=== PATIENT | female | born 1945 | race Caucasian/White ===

== ENCOUNTER 2019-06-19 09:04 | Outpatient (REF) | payer MEDICARE, OTHER, SELFPAY ==
[2019-06-19 21:32] LABS: Anion Gap 7.5 mmol/L (3-11); BUN 17 mg/dL (7-18); CO2 31.5 mmol/L (21.0-32.0); CREATININE 0.79 mg/dL (0.55-1.02); Calcium 9.2 mg/dL (8.5-10.1); Calculated LDL 133 mg/dL; Chloride 104 mmol/L (98-107); Cholesterol 227 mg/dL (50-200); Glucose 101 mg/dL (70-100); HDL Cholesterol 50 mg/dL (40-60); Potassium 3.9 mmol/L (3.5-5.1); Sodium 143 mmol/L (136-145); Triglyceride 224 mg/dL (30-150)
== END 2019-06-19 09:24 ==
LOC: NCHCN 09:04
PROVIDERS: PCP Family Medicine; Visit Provider Family Medicine
DX: I10 Essential (primary) hypertension (principal)
CPT/HCPCS: 80048; 80061

== ENCOUNTER 2019-09-23 15:16 | Outpatient (REF) | payer MEDICARE, OTHER, SELFPAY ==
[2019-09-23 21:44] LABS: Absolute Basophil Count 0.02 k/cumm (0.0-0.2); Absolute Eosinophil Count 0.11 k/cumm (0.0-0.7); Absolute Lymphocyte Count 1.87 k/cumm (1.2-3.4); Absolute Monocyte Count 0.53 k/cumm (0.11-0.7); Absolute Neutrophil Count 3.71 k/cumm (1.2-6.7); Basophils % 0.3; Eosinophils % 1.8; HCT 39.4 % (36.0-46.0); HGB 12.7 g/dL (12.0-15.5); Mean Corp. HGB Concentration 32.2 g/dL (32.0-36.0); Mean Corpuscular Hemoglobin 30.5 pg (27.0-33.0); Mean Corpuscular Volume 94.5 fL (80-95); Mean Platelet Volume 10.5 fL (8.0-11.0); Monocytes % 8.5; Neutrophils % 59.4; Platelet Count 329 x1000/uL (130-400); RBC 4.17 m/cumm (4.00-5.20); RBC Distribution Width 12.5 % (11.7-14.6); White Blood Cell Count 6.24 k/cumm (4.4-10.8)
[2019-09-23 22:28] LABS: ALT 26 U/L (14-59); AST 16 U/L (15-37); Alkaline Phosphatase 54 U/L (46-116); Anion Gap 5.9 mmol/L (3-11); BUN 17 mg/dL (7-18); Bilirubin, Total 0.3 mg/dL (0.2-1.0); CO2 32.1 mmol/L (21.0-32.0); CREATININE 0.98 mg/dL (0.55-1.02); Calcium 9.1 mg/dL (8.5-10.1); Chloride 105 mmol/L (98-107); Estimated GFR 55.79 (mL/min/1.73m2); Glucose 98 mg/dL (74-106); Potassium 4.6 mmol/L (3.5-5.1); Sodium 143 mmol/L (136-145); Vitamin B12 282 pg/mL (193-986)
[2019-09-23 22:41] LABS: Lipase 129 U/L (73-393)
== END 2019-09-23 15:36 ==
LOC: NCHCN 15:16
PROVIDERS: PCP Family Medicine; Visit Provider Family Medicine
DX: R10.11 Right upper quadrant pain (principal); R11.0 Nausea; G62.9 Polyneuropathy, unspecified
CPT/HCPCS: 80053; 83690; 82607; 85025

== ENCOUNTER 2020-06-15 09:17 | Outpatient (REF) | payer MEDICARE, OTHER, SELFPAY ==
[2020-06-15 22:55] LABS: HCT 39.5 % (36.0-46.0); HGB 12.7 g/dL (11.2-15.7); MCH 30.8 pg (27.0-33.0); MCHC 32.2 % (32.0-36.0); MCV 95.6 fL (80-95); MPV 10.2 fL (8.0-11.0); Platelet Count 330 10^3/uL (130-400); RBC 4.13 10^6/uL (3.93-5.22); RDW 12.1 % (11.7-14.6); RDW-SD 42.1 fL; WBC 6.47 10^3/uL (4.4-10.8)
[2020-06-15 23:30] LABS: BUN 18 mg/dL (7-18); CREATININE 0.78 mg/dL (0.55-1.02); Calcium 9.3 mg/dL (8.5-10.1); Chloride 104 mmol/L (98-107); Glucose 95 mg/dL (74-106); Potassium 4.1 mmol/L (3.5-5.1); Sodium 143 mmol/L (136-145); TSH (W/Ref FT4) 1.45 uIU/mL (0.36-3.74); Vitamin B12 1765 pg/mL (193-986)
[2020-06-17 18:09] LABS: Folate 16.9 ng/mL (See Note)
== END 2020-06-15 09:37 ==
LOC: NCHCN 09:17
PROVIDERS: PCP Family Medicine; Visit Provider Family Medicine
DX: E53.8 Deficiency of other specified B group vitamins (principal); I10 Essential (primary) hypertension
CPT/HCPCS: 80048; 85027; 82607; 82746; 84443

== ENCOUNTER 2020-09-20 11:51 | Outpatient (REF) | payer MEDICARE, OTHER, SELFPAY | END 2020-09-20 12:11 | LOC: NCHCN 11:51 | PROVIDERS: PCP Family Medicine; Visit Provider Nurse Practitioner Family | DX: R10.9 Unspecified abdominal pain (principal) | CPT/HCPCS: 87086 ==

== ENCOUNTER 2020-11-04 19:12 | Outpatient (REF) | payer MEDICARE, OTHER, SELFPAY ==
[2020-11-04 13:41] LABS: Total Protein 7.4 g/dL (6.4-8.2)
== END 2020-11-04 19:13 | disposition home or self-care (01) ==
LOC: NCHCN 19:12
PROVIDERS: PCP Family Medicine; Visit Provider Family Medicine
DX: E88.09 Other disorders of plasma-protein metabolism, not elsewhere classified (principal)
CPT/HCPCS: 84155

== ENCOUNTER 2021-06-22 14:55 | Outpatient (REF) | payer MEDICARE, OTHER, SELFPAY ==
[2021-06-22 22:31] LABS: Abs Immature Grans 0.01 10^3/uL (0.0-0.06); Absolute Basophil Count 0.05 10^3/uL (0.0-0.2); Absolute Eosinophil Count 0.03 10^3/uL (0.0-0.7); Absolute Lymphocyte Count 1.45 10^3/uL (1.2-3.4); Absolute Monocyte Count 0.43 10^3/uL (0.1-0.8); Absolute Neutrophil Count 3.94 10^3/uL (1.2-6.7); Basophils % 0.8; Eosinophils % 0.5; HCT 40.7 % (36.0-46.0); HGB 13.1 g/dL (11.2-15.7); Immature Grans % 0.2; Lymphocytes % 24.5; MCH 30.2 pg (27.0-33.0); MCHC 32.2 % (32.0-36.0); MCV 93.8 fL (80-95); MPV 10.6 fL (8.0-11.0); Monocytes % 7.3; Neutrophils % 66.7; Nucleated RBC 0 %; Platelet Count 307 10^3/uL (130-400); RBC 4.34 10^6/uL (3.93-5.22); RDW 12.4 % (11.7-14.6); RDW-SD 42.9 fL; WBC 5.91 10^3/uL (4.4-10.8)
[2021-06-22 22:50] LABS: ALT 21 U/L (14-59); AST 15 U/L (15-37); Albumin 4.3 g/dL (3.4-5.0); Alkaline Phosphatase 51 U/L (46-116); Anion Gap 7.9 mmol/L (3-11); BUN 13 mg/dL (7-18); Bilirubin, Total 0.3 mg/dL (0.2-1.0); CO2 29.1 mmol/L (21.0-32.0); CREATININE 0.8 mg/dL (0.55-1.02); Calcium 9.2 mg/dL (8.5-10.1); Chloride 108 mmol/L (98-107); Glucose 91 mg/dL (74-106); Lipase 123 U/L (73-393); Potassium 4.5 mmol/L (3.5-5.1); Sodium 145 mmol/L (136-145); Total Protein 7.4 g/dL (6.4-8.2)
== END 2021-06-22 14:56 | disposition home or self-care (01) ==
LOC: NCHCN 14:55
PROVIDERS: PCP Family Medicine; Visit Provider Family Medicine
DX: R19.7 Diarrhea, unspecified (principal); R10.32 Left lower quadrant pain; R10.11 Right upper quadrant pain
CPT/HCPCS: 80053; 83690; 85025

== ENCOUNTER 2024-06-18 16:26 | Outpatient (REF) | payer MEDICARE, SELFPAY ==
--- OUTSIDE RECORDS SUMMARY | 2024-06-18 16:32 | XMS_ITS ---
Author Organization Unknown Address [address] [place] [address] [phone] Phone Care Team Providers Care Mechanical Manufacturing Engineer Name Role Phone NAZ WOODRUFF Attending Unavailable TANK Nance Primary Unavailable Results MM SCREENING BILAT MAMMO W T ZACK W CAD - Completed: 06/15/2022 09:51 LOINC: [facility] [place], [place] [address] PACS RESEARCH NURSE REPORT Patient Name: JAMES FOOTE V MRN: Sex: : Age: [id number] F 1945 76 Account: Accession: Admit: StayType: [id number] 06/15/2022 O/P Ordered: Order ID: Submitted: Ordering Provider: 06/15/2022 09:17 [id number] RANJAN GARCIA Completed: Technologist: Resulted: 06/15/2022 09:51 BMM 06/15/2022 13:59 Study Description: MM SCREENING BILAT MAMMO W ABHI W CAD Study Reason: SCREENING TECHNIQUE: 2D digital images with tomosynthesis and CAD COMPARISON: 2017 through 2020 FINDINGS: The breasts are composed of scattered fibroglandular densities, Breast Density category B. No suspicious masses or suspicious microcalcifications are seen. There is scarring in the medial right breast related to prior lumpectomy. No abnormal axillary lymph nodes are seen. There has been no significant change from prior exams. IMPRESSION: BI-RADS Category 2, negative mammogram with benign findings. Yearly screening mammography is recommended. Breast Density - Category B, scattered fibroglandular densities. A negative radiographic report should not delay biopsy if a dominant or clinically suspicious mass is present. Up to ten percent of cancers are not identified on mammography. A negative report may reinforce clinical impression. Adenosis and dense breasts may obscure an underlying neoplasm. False positive reports average 6 to 10%. Patient will receive a letter notifying them of these results. Report Digitally Signed by Radha Miller on 06/15/2022 01:59 PM EDT Social History Type Status Start Date End Date Code Code Syst em Smoking History Never smoker (Never Smoked) [id number] SNOMED CT Sex Female Medications Medication Start Date End Date Route Frequency Dose Code Code System Medication Instructions Home Meds CHEMO PILL 08/05/2018 Unknown ORAL DAILY 1 RxNorm T MARLI 1 ORAL DAILY HYDROmorphone HCl 2MG Oral Tablet 08/05/2018 Unknown ORAL NEEDED THREE TIMES A DAY 2 MILLIGRAMS 735696 RxNorm TAKE 2 MILLIGRAMS ORAL NEEDED THREE TIMES A DAY Magnesium 500 MG Oral Tablet 08/05/2018 Unknown ORAL TWICE A DAY 500 MG 895287 RxNorm TAKE 500 MG ORAL TWICE A DAY Metoprolol Succinate 25MG Oral Tablet, Extended Release 08/05/2018 Unknown ORAL DAILY 25 MILLIGRAMS 971390 RxNorm TAKE 25 MILLIGRAMS ORAL DAILY Omeprazole 20MG Oral Tablet, Delayed Release 08/05/2018 Unknown ORAL DAILY 20 MG RxNorm TAKE 20 MG ORAL DAILY amLODIPine Besylate 5MG Oral Tablet 08/05/2018 Unknown ORAL DAILY 5 MILLIGRAMS 610496 RxNorm TAKE 5 MILLIGRAMS ORAL DAILY traMADol HCl 50MG Oral Tablet 08/05/2018 Unknown ORAL NEEDED DAILY 50 MILLIGRAMS 470866 RxNorm TAKE 50 MILLIGRAMS ORAL NEEDED DAILY Hospital Discharge Instructions Should you have any questions prior to discharge, please contact a member of your healthcare team. If you have left the hospital and have any questions, please contact your primary care physician. Reason For Referral No Data Found Allergies and Adverse Reactions Allergy Substance Reaction Severity Start Date Concern Status Co de Code System ERYTHROMYCIN Itching (SNOMED-CT: 993478276) Moderate Active 4053 RxNorm PERCOCET Nausea/Vomiting (SNOMED-CT: 00412219) Severe Active 77273 RxNorm Plan of Treatment Exposure 11/18/2020 MM SCREEN BILAT 09/05/2023 US ABDOMEN LIMITED 1 ORGAN 07/04/2022 MM SCREEN BILAT 06/15/2022 CT ABDOMEN/PELVIS W/ CONTRAST Encounters Encounter Diagnosis Start Date Code Code Sys tem Screening mammography 06/15/2022 58704231 [facility] Media[facility] -CT Personal Care Team Section Performer Name Performer Role Active Date Inactive Da te
--- OUTSIDE RECORDS SUMMARY | 2024-06-18 16:32 | XMS_ITS ---
Author Organization Unknown Address [address] [place] [address] [phone] Phone Care Team Providers Care Quality Assurance Technician Name Role Phone TIMUR Caballero Attending Unavailable TANK Nance Primary Unavailable Social History Type Status Start Date End Date Code Code Syst em Smoking History Never smoker (Never Smoked) 608316403 SNOMED CT Sex Female Medications Medication Start Date End Date Route Frequency Dose Code Code System Medication Instructions Home Meds CHEMO PILL 08/05/2018 Unknown ORAL DAILY 1 RxNorm T MARLI 1 ORAL DAILY HYDROmorphone HCl 2MG Oral Tablet 08/05/2018 Unknown ORAL NEEDED THREE TIMES A DAY 2 MILLIGRAMS 079973 RxNorm TAKE 2 MILLIGRAMS ORAL NEEDED THREE TIMES A DAY Magnesium 500 MG Oral Tablet 08/05/2018 Unknown ORAL TWICE A DAY 500 MG 135186 RxNorm TAKE 500 MG ORAL TWICE A DAY Metoprolol Succinate 25MG Oral Tablet, Extended Release 08/05/2018 Unknown ORAL DAILY 25 MILLIGRAMS 462894 RxNorm TAKE 25 MILLIGRAMS ORAL DAILY Omeprazole 20MG Oral Tablet, Delayed Release 08/05/2018 Unknown ORAL DAILY 20 MG RxNorm TAKE 20 MG ORAL DAILY amLODIPine Besylate 5MG Oral Tablet 08/05/2018 Unknown ORAL DAILY 5 MILLIGRAMS 489449 RxNorm TAKE 5 MILLIGRAMS ORAL DAILY traMADol HCl 50MG Oral Tablet 08/05/2018 Unknown ORAL NEEDED DAILY 50 MILLIGRAMS 727714 RxNorm TAKE 50 MILLIGRAMS ORAL NEEDED DAILY [...] Co de Code System ERYTHROMYCIN Itching (SNOMED-CT: 845730882) Moderate Active 4053 RxNorm PERCOCET Nausea/Vomiting (SNOMED-CT: 66651910) Severe Active 91025 RxNorm Plan of Treatment Exposure 11/18/2020 MM SCREEN BILAT 09/05/2023 US ABDOMEN LIMITED 1 ORGAN 07/04/2022 MM SCREEN BILAT 06/15/2022 CT ABDOMEN/PELVIS W/ CONTRAST Encounters Encounter Diagnosis Start Date Code Code Sys tem Primary osteoarthritis, right shoulder 12/21/2021 SNOMED-CT Personal Care Team Section Performer Name Performer Role Active Date Inactive Da te
--- OUTSIDE RECORDS SUMMARY | 2024-06-18 16:32 | XMS_ITS ---
Author Organization Unknown Address [address] [place] [address] [phone] Phone Care Team Providers Care Pig Machine Operator Helper Name Role Phone TANK Nance Attending Unavailable Results CBC W/ DIFFERENTIAL* - Colle ct Date/Time: 07/10/2022 08:30 [facility] ID: [id number] [address] [place] [address], 6[address] LOINC: 17671-8 Test Value Unit Reference Range Code Code System Flag WBC 7.05 th/cmm L=5.00 H=10.00 6690-2 LOINC NEUT % 57.4 % L=40.0 H=80.0 LYMPH % 31.6 % L=10.0 H=50.0 MONO % 8.2 % L=2.0 H=12.0 26850-8 LOINC EOS % 1.8 % L=0.0 H=8.0 BASO % 0.7 % L=0.0 H=3.0 IG % 0.3 % L=0.0 H=1.1 2514-8 LOINC NRBC % 0.0 % L=0.0 H=0.0 40970-8 LOINC NEUT abs count 4.0 th/cmm L=1.6 H=8.4 751-8 LOINC LYMPH abs count 2.2 th/cmm L=1.5 H=4.0 731-0 LOINC MONO abs count 0.6 th/cmm L=0.2 H=1.0 742-7 LOINC EOS abs count 0.1 th/cmm L=0.0 H=0.5 711-2 LOINC BASO abs count 0.1 th/cmm L=0.0 H=0.2 704-7 LOINC IG abs count 0.0 th/cmm L=0.0 H=0.1 95979-6 LOINC NRBC abs count 0.0 mil/cmm L=0.0 H=0.0 89601-7 LOINC RBC 4.34 mil/cmm L=3.90 H=5.40 789-8 LOINC HEMOGLOBIN 13.3 gm/dL L=12.0 H=16.0 718-7 LOINC HEMATOCRIT 41 % L=37 H=47 4544-3 LOINC MCV 95 fL L=82 H=92 787-2 LOINC H MCH 30.6 pg L=27.0 H=31.0 785-6 LOINC MCHC 32.4 % L=32.0 H=36.0 786-4 LOINC RDW-SD 45.1 fL L=39.0 H=49.0 788-0 LOINC PLATELET COUNT 330 th/cmm L=150 H=450 777-3 LOINC LIPASE* NEW - Collect Date/T carrie: 07/10/2022 08:30 [facility] ID: [id number] [address] [place] [address], [phone] LOINC: 3040-3 Test Value Unit Reference Range Code Code System Flag LIPASE. 30 U/L L=16 H=77 COMPREHENSIVE METABOLIC PANE L (CMP) - Collect Date/Time: 07/10/2022 08:30 [facility] ID: [id number] [address] [place] [address], [address] LOINC: 31645-0 Test Value Unit Reference Range Code Code System Flag GLUCOSE 115 mg/dL L=70 H=116 2345-7 LOINC BUN 15 mg/dL L=6 H=25 3094-0 LOINC CREATININE 0.81 mg/dL L=0.51 H=0.95 2160-0 LOINC SODIUM SERUM 143 mmol/L L=136 H=145 2951-2 LOINC POTASSIUM SERUM 3.5 mmol/L L=3.4 H=5.2 2823-3 LOINC CHLORIDE SERUM 102 mmol/L L=96 H=110 2075-0 LOINC CARBON DIOXIDE (CO2) 33 mmol/L L=22 H=34 8-9 LOINC ANION GAP 8.5 mmol/L 75643-9 LOINC CALCIUM SERUM 8.6 mg/dL L=8.2 H=10.2 93741-5 LOINC BILIRUBIN TOTAL 0.3 mg/dL L=0.0 H=1.3 1975-2 LOINC ALK. PHOS. 52 U/L L=46 H=116 6768-6 LOINC SGOT (AST) 16 U/L L=15 H=37 1920-8 LOINC SGPT (ALT) 27 U/L L=12 H=78 1742-6 LOINC TOTAL PROTEIN 8.0 gm/dL L=6.0 H=8.0 2885-2 LOINC ALBUMIN 4.2 gm/dL L=3.4 H=5.0 1751-7 LOINC AGE 76 years eGFR (non-Afr.Amer.) 69 mL/min 20401-1 LOINC eGFR (Afr-Chadian) 83 mL/min 92062-9 [facility] Social History Type Status Start Date End Date Code Code Syst em Smoking History Never smoker (Never Smoked) 843916746 SNOMED CT Sex Female Medications Medication Start Date End Date Route Frequency Dose Code Code System Medication Instructions Home Meds CHEMO PILL 08/05/2018 Unknown ORAL DAILY 1 RxNorm T MARLI 1 ORAL DAILY HYDROmorphone HCl 2MG Oral Tablet 08/05/2018 Unknown ORAL NEEDED THREE TIMES A DAY 2 MILLIGRAMS 916242 RxNorm TAKE 2 MILLIGRAMS ORAL NEEDED THREE TIMES A DAY Magnesium 500 MG Oral Tablet 08/05/2018 Unknown ORAL TWICE A DAY 500 MG 660291 RxNorm TAKE 500 MG ORAL TWICE A DAY Metoprolol Succinate 25MG Oral Tablet, Extended Release 08/05/2018 Unknown ORAL DAILY 25 MILLIGRAMS 746532 RxNorm TAKE 25 MILLIGRAMS ORAL DAILY Omeprazole 20MG Oral Tablet, Delayed Release 08/05/2018 Unknown ORAL DAILY 20 MG RxNorm TAKE 20 MG ORAL DAILY amLODIPine Besylate 5MG Oral Tablet 08/05/2018 Unknown ORAL DAILY 5 MILLIGRAMS 624813 RxNorm TAKE 5 MILLIGRAMS ORAL DAILY traMADol HCl 50MG Oral Tablet 08/05/2018 Unknown ORAL NEEDED DAILY 50 MILLIGRAMS 486912 RxNorm TAKE 50 MILLIGRAMS ORAL NEEDED DAILY [...] Co de Code System ERYTHROMYCIN Itching (SNOMED-CT: 589801485) Moderate Active 4053 RxNorm PERCOCET Nausea/Vomiting (SNOMED-CT: 07385785) Severe Active 28434 RxNorm Plan of Treatment Exposure 11/18/2020 MM SCREEN BILAT 09/05/2023 US ABDOMEN LIMITED 1 ORGAN 07/04/2022 MM SCREEN BILAT 06/15/2022 CT ABDOMEN/PELVIS W/ CONTRAST 1 Encounters Encounter Diagnosis Start Date Code Code Sys tem Right upper quadrant pain 07/10/2022 921182134 SN OMED-CT Personal Care Team Section Performer Name Performer Role Active Date Inactive Da verenice
--- OUTSIDE RECORDS SUMMARY | 2024-06-18 16:32 | XMS_ITS ---
Author Organization Unknown Address [address] [place] [address] [phone] Phone Care Team Providers Care Auger Machine Offbearer Name Role Phone TANK Nance Attending Unavailable Results US ABD LIMITED ONE ORGAN - C ompleted: 07/04/2022 13:09 LOINC: [facility] [place], [place] [address] PACS DOUPER REPORT Patient Name: JAMES FOOTE V MRN: Sex: : Age: [id number] F 1945 76 Account: Accession: Admit: StayType: [id number] 07/04/2022 O/P Ordered: Order ID: Submitted: Ordering Provider: 07/04/2022 12:35 [id number] TIMOTHY WAGNER Completed: Technologist: Resulted: 07/04/2022 13:09 GVS 07/04/2022 13:34 Study Description: US ABD LIMITED ONE ORGAN Study Reason: RUQ PAIN TECHNIQUE: Ultrasound abdomen performed using standard protocol. COMPARISON: Prior CT scan 06/30/2021 was reviewed FINDINGS: There is no ascites evident. LIVER: Somewhat hyperechoic indicating an element of steatosis. There are no the focal hepatic lesions identified. GALLBLADDER/BILIARY: There are no gallstones. No gallbladder wall edema nor pericholecystic fluid. The common hepatic duct isnot dilated, measuring 3mm at the level of malia hepatis. PANCREAS: There is no evidence of pancreatic mass nor dilatation of the pancreatic duct. RIGHT KIDNEY:No evidence of solid mass, calculus, nor hydronephrosis. No cortical cysts evident. ABDOMINAL AORTA AND IVC: Visualized portions exhibit normal caliber. IMPRESSION: 1. No evidence of cholelithiasis nor dilatation of the biliary tree. 2. Hepatic steatosis. Correlation with appropriate hepatic blood work recommended 3. No others significant right upper quadrant ultrasound findings. Report Digitally Signed by Anjel Mc on 07/04/2022 01:34 PM EDT Social History Type Status Start Date End Date Code Code Syst em Smoking History Never smoker (Never Smoked) 834481416 SNOMED CT Sex Female Medications Medication Start Date End Date Route Frequency Dose Code Code System Medication Instructions Home Meds CHEMO PILL 08/05/2018 Unknown ORAL DAILY 1 RxNorm T MARLI 1 ORAL DAILY HYDROmorphone HCl 2MG Oral Tablet 08/05/2018 Unknown ORAL NEEDED THREE TIMES A DAY 2 MILLIGRAMS 749171 RxNorm TAKE 2 MILLIGRAMS ORAL NEEDED THREE TIMES A DAY Magnesium 500 MG Oral Tablet 08/05/2018 Unknown ORAL TWICE A DAY 500 MG 920779 RxNorm TAKE 500 MG ORAL TWICE A DAY Metoprolol Succinate 25MG Oral Tablet, Extended Release 08/05/2018 Unknown ORAL DAILY 25 MILLIGRAMS 627978 RxNorm TAKE 25 MILLIGRAMS ORAL DAILY Omeprazole 20MG Oral Tablet, Delayed Release 08/05/2018 Unknown ORAL DAILY 20 MG RxNorm TAKE 20 MG ORAL DAILY amLODIPine Besylate 5MG Oral Tablet 08/05/2018 Unknown ORAL DAILY 5 MILLIGRAMS 028117 RxNorm TAKE 5 MILLIGRAMS ORAL DAILY traMADol HCl 50MG Oral Tablet 08/05/2018 Unknown ORAL NEEDED DAILY 50 MILLIGRAMS 768041 RxNorm TAKE 50 MILLIGRAMS ORAL NEEDED DAILY [...] Co de Code System ERYTHROMYCIN Itching (SNOMED-CT: 707782690) Moderate Active 4053 RxNorm PERCOCET Nausea/Vomiting (SNOMED-CT: 96282172) Severe Active 38114 RxNorm Plan of Treatment Exposure 11/18/2020 MM SCREEN BILAT 09/05/2023 US ABDOMEN LIMITED 1 ORGAN 07/04/2022 MM SCREEN BILAT 06/15/2022 CT ABDOMEN/PELVIS W/ CONTRAST Encounters Encounter Diagnosis Start Date Code Code Sys tem Right upper quadrant pain 07/04/2022 SN OMED-CT Personal Care Team Section Performer Name Performer Role Active Date Inactive Da te
--- OUTSIDE RECORDS SUMMARY | 2024-06-18 16:33 | XMS_ITS ---
Author Organization Unknown Address [address] [place] [address] [phone] Phone Care Team Providers Care Dock Coordinator Name Role Phone HAKAN Crar Attending Unavailable TANK Nance Primary Unavailable Results XR SHOULDER 2V OR MORE RT* - Completed: 02/04/2024 08:59 LOINC: [facility] [place], [place] [address] [facility] REPORT Patient Name: JAMES FOOTE V MRN: Sex: : Age: [id number] F 1945 78 Account: Accession: Admit: StayType: [id number] 02/04/2024 O Ordered: Order ID: Submitted: Ordering Provider: 02/04/2024 07:58 [id number] RICK LAMA Completed: Technologist: Resulted: 02/04/2024 08:10 RAD 02/04/2024 08:34 FINAL REPORT EXAM: XR SHOULDER 2V OR MORE RT* CLINICAL HISTORY: REASON: RIGHT SHOULDER PAIN, UNSPECIFIED CHRONICITY. TECHNIQUE: 2D digital imaging was performed of the right shoulder. Three images were obtained. Three views were obtained. COMPARISON: No exams were available for comparison FINDINGS: BONES: No acute fracture is present. No bony destructive lesion is seen. JOINTS: No dislocation present. There are degenerative changes seen at the acromioclavicular joint. The glenohumeral joint is well-maintained. SOFT TISSUE: Normal. IMPRESSION: Degenerative changes of the acromioclavicular joint. DATA REPOSITORY: RADIATION DOSE DELIVERED: Electronically signed by: Francisco Reyes Dictated: 02/04/2024 08:34 Social History Type Status Start Date End Date Code Code Syst em Smoking History Never smoker (Never Smoked) 198057106 SNOMED CT Sex Female Medications Medication Start Date End Date Route Frequency Dose Code Code System Medication Instructions Home Meds CHEMO PILL 08/05/2018 Unknown ORAL DAILY 1 RxNorm T MARLI 1 ORAL DAILY HYDROmorphone HCl 2MG Oral Tablet 08/05/2018 Unknown ORAL NEEDED THREE TIMES A DAY 2 MILLIGRAMS 237237 RxNorm TAKE 2 MILLIGRAMS ORAL NEEDED THREE TIMES A DAY Magnesium 500 MG Oral Tablet 08/05/2018 Unknown ORAL TWICE A DAY 500 MG 337766 RxNorm TAKE 500 MG ORAL TWICE A DAY Metoprolol Succinate 25MG Oral Tablet, Extended Release 08/05/2018 Unknown ORAL DAILY 25 MILLIGRAMS 552619 RxNorm TAKE 25 MILLIGRAMS ORAL DAILY Omeprazole 20MG Oral Tablet, Delayed Release 08/05/2018 Unknown ORAL DAILY 20 MG RxNorm TAKE 20 MG ORAL DAILY amLODIPine Besylate 5MG Oral Tablet 08/05/2018 Unknown ORAL DAILY 5 MILLIGRAMS 839959 RxNorm TAKE 5 MILLIGRAMS ORAL DAILY traMADol HCl 50MG Oral Tablet 08/05/2018 Unknown ORAL NEEDED DAILY 50 MILLIGRAMS 378335 RxNorm TAKE 50 MILLIGRAMS ORAL NEEDED DAILY [...] Co de Code System ERYTHROMYCIN Itching (SNOMED-CT: 313072171) Moderate Active 4053 RxNorm PERCOCET Nausea/Vomiting (SNOMED-CT: 80963318) Severe Active 45653 RxNorm Plan of Treatment Exposure 11/18/2020 MM SCREEN BILAT 09/05/2023 US ABDOMEN LIMITED 1 ORGAN 07/04/2022 MM SCREEN BILAT 06/15/2022 CT ABDOMEN/PELVIS W/ CONTRAST Encounters Encounter Diagnosis Start Date Code Code Sys tem 02/04/2024 [id number] SNOMED-CT Personal Care Team Section Performer Name Performer Role Active Date Inactive Da te
--- OUTSIDE RECORDS SUMMARY | 2024-06-18 16:33 | XMS_ITS ---
Author Organization Unknown Address [address] [place] [address] [phone] Phone Care Team Providers Care Real Estate Analyst Name Role Phone MALCOM VICK Registered Nurse Unavailable FLEX Reza Attending Unavailable MADELIN Cint[facility] Unavailable TANK Nance Primary Unavailable UNLISTED PROVIDER - REQUESTED Xhandoff Un available Results XR SHOULDER 2V OR MORE LT* - Completed: 09/02/2022 21:54 LOINC: [place], [place] [address] TECHNICIAN REPORT Patient Name: JAMES FOOTE V MRN: Sex: : Age: [id number] F 1945 76 Account: Accession: Admit: StayType: [id number] 09/02/2022 E/R Ordered: Order ID: Submitted: Ordering Provider: 09/02/2022 19:53 [id number] GHANSHYAM LOPEZ Completed: Technologist: Resulted: 09/02/2022 21:54 CLB 09/04/2022 08:19 Study Description: XR SHOULDER 2V OR MORE LT* Study Reason: Pain Views: 4 COMPARISON: FINDINGS: BONES: No acute fracture is present. No bony destructive lesion is seen. JOINTS: No dislocation present. There is spurring at the AC joint. SOFT TISSUE: Normal. IMPRESSION: No acute abnormality. Report Digitally Signed by Radha Miller on 09/04/2022 08:19 AM EST Social History Type Status Start Date End Date Code Code Syst em Smoking History Never smoker (Never Smoked) 818697201 SNOMED CT Sex Female Vital Signs Vital Sign Value Unit Lawson Value Lawson Unit Date/Time Recent/Initial? Code Code System Body Mass Index 24.94 kg/m2 09/02/2022 19:42 Initial 84246 -5 LOINC Systolic Blood Pressure 152 mm[Hg] 09/02/2022 19:35 Initial 8480- 6 LOINC Diastolic Blood Pressure 86 mm[Hg] 09/02/2022 19:35 Initial 8462- 4 LOINC Body Surface Area 1.61 m2 09/02/2022 19:42 Initial 3140- 1 LOINC Height 154.940 0 cm 61.00 in 09/02/2022 19:42 Initial 8302- 2 LOINC O2 Saturation 98 % 2022 19:35 Initial 34059 -5 LOINC Pulse 103.0 /min 09/02/2022 19:35 Initial 8867- 4 LOINC Respiration 18 /min 09/02/19 19:35 Initial 9279- 1 LOINC Temperature 37.4 Herlinda 99.3 F 09/02/19 23 19:35 Initial 8310- 5 LOINC Weight 59.87 kg 132.00 lbs 09/02/2022 19:42 Initial 22435 -7 LOINC Medications Medication Start Date End Date Route Frequency Dose Code Code System Medication Instructions Home Meds CHEMO PILL 08/05/2018 Unknown ORAL DAILY 1 RxNorm T MARLI 1 ORAL DAILY HYDROmorphone HCl 2MG Oral Tablet 08/05/2018 Unknown ORAL NEEDED THREE TIMES A DAY 2 MILLIGRAMS 872887 RxNorm TAKE 2 MILLIGRAMS ORAL NEEDED THREE TIMES A DAY Magnesium 500 MG Oral Tablet 08/05/2018 Unknown ORAL TWICE A DAY 500 MG 085710 RxNorm TAKE 500 MG ORAL TWICE A DAY Metoprolol Succinate 25MG Oral Tablet, Extended Release 08/05/2018 Unknown ORAL DAILY 25 MILLIGRAMS 350398 RxNorm TAKE 25 MILLIGRAMS ORAL DAILY Omeprazole 20MG Oral Tablet, Delayed Release 08/05/2018 Unknown ORAL DAILY 20 MG RxNorm TAKE 20 MG ORAL DAILY amLODIPine Besylate 5MG Oral Tablet 08/05/2018 Unknown ORAL DAILY 5 MILLIGRAMS 420115 RxNorm TAKE 5 MILLIGRAMS ORAL DAILY traMADol HCl 50MG Oral Tablet 08/05/2018 Unknown ORAL NEEDED DAILY 50 MILLIGRAMS 585675 RxNorm TAKE 50 MILLIGRAMS ORAL NEEDED DAILY [...] Co de Code System ERYTHROMYCIN Itching (SNOMED-CT: 757956920) Moderate Active 4053 RxNorm PERCOCET Nausea/Vomiting (SNOMED-CT: 43458925) Severe Active 93511 RxNorm Plan of Treatment Exposure 11/18/2020 MM SCREEN BILAT 09/05/2023 US ABDOMEN LIMITED 1 ORGAN 07/04/2022 MM SCREEN BILAT 06/15/2022 CT ABDOMEN/PELVIS W/ CONTRAST Encounters Encounter Diagnosis Start Date Code Code Sys tem Strain of muscle(s) and tend on(s) of the rotator cuff of left shoulder, initial encounter 09/02/2022 SNOMED- CT Personal Care Team Section Performer Name Performer Role Active Date Inactive Da te
--- OUTSIDE RECORDS SUMMARY | 2024-06-18 16:33 | XMS_ITS ---
Author Organization Unknown Address [address] [place] [address] [phone] Phone Care Team Providers Care System Specialist Name Role Phone HAKAN PATKELSEY Carr Attending Unavailable TANK Nance Primary Unavailable Social History Type Status Start Date End Date Code Code Syst em Smoking History Never smoker (Never Smoked) 516115581 SNOMED CT Sex Female Medications Medication Start Date End Date Route Frequency Dose Code Code System Medication Instructions Home Meds CHEMO PILL 08/05/2018 Unknown ORAL DAILY 1 RxNorm T MARLI 1 ORAL DAILY HYDROmorphone HCl 2MG Oral Tablet 08/05/2018 Unknown ORAL NEEDED THREE TIMES A DAY 2 MILLIGRAMS 549695 RxNorm TAKE 2 MILLIGRAMS ORAL NEEDED THREE TIMES A DAY Magnesium 500 MG Oral Tablet 08/05/2018 Unknown ORAL TWICE A DAY 500 MG 246085 RxNorm TAKE 500 MG ORAL TWICE A DAY Metoprolol Succinate 25MG Oral Tablet, Extended Release 08/05/2018 Unknown ORAL DAILY 25 MILLIGRAMS 985557 RxNorm TAKE 25 MILLIGRAMS ORAL DAILY Omeprazole 20MG Oral Tablet, Delayed Release 08/05/2018 Unknown ORAL DAILY 20 MG RxNorm TAKE 20 MG ORAL DAILY amLODIPine Besylate 5MG Oral Tablet 08/05/2018 Unknown ORAL DAILY 5 MILLIGRAMS 791279 RxNorm TAKE 5 MILLIGRAMS ORAL DAILY traMADol HCl 50MG Oral Tablet 08/05/2018 Unknown ORAL NEEDED DAILY 50 MILLIGRAMS 146732 RxNorm TAKE 50 MILLIGRAMS ORAL NEEDED DAILY [...] Co de Code System ERYTHROMYCIN Itching (SNOMED-CT: 876331657) Moderate Active 4053 RxNorm PERCOCET Nausea/Vomiting (SNOMED-CT: 64647023) Severe Active 72600 RxNorm Plan of Treatment Exposure 11/18/2020 MM SCREEN BILAT 09/05/2023 US ABDOMEN LIMITED 1 ORGAN 07/04/2022 MM SCREEN BILAT 06/15/2022 CT ABDOMEN/PELVIS W/ CONTRAST Encounters Encounter Diagnosis Start Date Code Code Sys tem Primary osteoarthritis, right shoulder 03/13/2024 SNOMED-CT Personal Care Team Section Performer Name Performer Role Active Date Inactive Da te
--- OUTSIDE RECORDS SUMMARY | 2024-06-18 16:33 | XMS_ITS ---
Author Organization Unknown Address [address] [place] [phone] Phone Care Team Providers Care Photograph Enlarger Name Role Phone TANK Nance Attending Unavailable Results MM SCREENING BILAT MAMMO W T ZACK W CAD - Completed: 09/05/2023 10:34 LOINC: [facility] RADIOLOGY [place], [place] [address] PACS RELIABILITY TECHNICIAN REPORT Patient Name: JAMES FOOTE V MRN: Sex: : Age: [id number] F 1945 [id number] Account: Accession: Admit: StayType: [id number] 09/05/2023 O/P Ordered: Order ID: Submitted: Ordering Provider: 09/05/2023 08:29 [id number] KT TIMOTHY FU Completed: Technologist: Resulted: 09/05/2023 10:34 KMD 09/05/2023 10:43 Study Description: MM SCREENING BILAT MAMMO W ABHI W CAD Study Reason: Screening TECHNIQUE: 2D digital images with tomosynthesis, CView images and CAD COMPARISON: 2018 through 2021 FINDINGS: The breasts are composed of scattered fibroglandular densities, Breast Density category B. No suspicious masses or suspicious microcalcifications are seen. Postlumpectomy scarring again noted in the medial right breast. No skin thickening or abnormal axillary lymph nodes are seen. There has been no significant change from prior exams. IMPRESSION: BI-RADS Category 1, Negative mammogram Yearly screening mammography is recommended. Breast Density [...] Report Digitally Signed by Radha Miller on 09/05/2023 10:43 AM EST Social History Type Status Start Date End Date Code Code Syst em Smoking History Never smoker (Never Smoked) [id number] SNOMED CT Sex Female Medications Medication Start Date End Date Route Frequency Dose Code Code System Medication Instructions Home Meds CHEMO PILL 08/05/2018 Unknown ORAL DAILY 1 RxNorm T MARLI 1 ORAL DAILY HYDROmorphone HCl 2MG Oral Tablet 08/05/2018 Unknown ORAL NEEDED THREE TIMES A DAY 2 MILLIGRAMS [id number] RxNorm TAKE 2 MILLIGRAMS ORAL NEEDED THREE TIMES A DAY Magnesium 500 MG Oral Tablet 08/05/2018 Unknown ORAL TWICE A DAY 500 MG [id number] RxNorm TAKE 500 MG ORAL TWICE A DAY Metoprolol Succinate 25MG Oral Tablet, Extended Release 08/05/2018 Unknown ORAL DAILY 25 MILLIGRAMS [id number] RxNorm TAKE 25 MILLIGRAMS ORAL DAILY Omeprazole 20MG Oral Tablet, Delayed Release 08/05/2018 Unknown ORAL DAILY 20 MG RxNorm TAKE 20 MG ORAL DAILY amLODIPine Besylate 5MG Oral Tablet 08/05/2018 Unknown ORAL DAILY 5 MILLIGRAMS 501990 RxNorm TAKE 5 MILLIGRAMS ORAL DAILY traMADol HCl 50MG Oral Tablet 08/05/2018 Unknown ORAL NEEDED DAILY 50 MILLIGRAMS [id number] RxNorm TAKE 50 MILLIGRAMS ORAL NEEDED DAILY [...] Co de Code System ERYTHROMYCIN Itching (SNOMED-CT: 052307964) Moderate Active 4053 RxNorm PERCOCET Nausea/Vomiting (SNOMED-CT: 03908410) Severe Active 50507 RxNorm Plan of Treatment Exposure 11/18/2020 MM SCREEN BILAT 09/05/2023 US ABDOMEN LIMITED 1 ORGAN 07/04/2022 MM SCREEN BILAT 06/15/2022 CT ABDOMEN/PELVIS W/ CONTRAST 1 Encounters Encounter Diagnosis Start Date Code Code Sys tem Encounter for screening mamm ogram for malignant neoplasm of breast 09/05/2023 SNOMED-CT Personal Care Team Section Performer Name Performer Role Active Date Inactive Da te
--- OUTSIDE RECORDS SUMMARY | 2024-06-18 16:34 | XMS_ITS | Encounter Summary ---
Author Organization [facility] Address [address] [place] [address] Care Team Providers Care Combination Welder Apprentice Name Role Phone Chapo Pyle MD Primary Care Provide r Encounter Details Date Type Department Care Team (Late st Contact Info) Description 06/17/2020 Lab Requisition [facility] Pathology & Laboratory Medicine - [facility] [address], [place] [address] Outr Resulting Lab, Provider Social History Tobacco Use Types Packs/Day Years Used Date Smoking Tobacco: Never Smokeless Tobacco: Never Alcohol Use Standard Drinks/Week Comments No 0 (1 standard drink = 0.6 oz pur e alcohol) Interpersonal Safety Answer Date Record ed Physically Hurt Never 04/03/2020 Verbally Threaten Not on file 04/03/2020 Sex and Gender Information Value Date Recorded Sex Assigned at Not on file Gender Identity Female 07/25/2021 10:47 EST Sexual Orientation Not on file documented as of this encounter Plan of Treatment Not on file documented as of this encounter Procedures Procedure Name Priority Date/Time Associated Diagnosis Comments FOLATE Routine 06/15/2020 9:05 EDT documented in this encounter Results * FOLATE (06/15/2020 9:05 EDT) Folate 16.9 See Note ng/mL 06/17/2020 18:04 EDT [facility] Comment: Reference Ranges for Folate: Deficient: ?< 3.4 ng/mL Indeterminate: ??3.4 - 5.4 ng/mL Normal: ? > 5.4 ng/mL The results of this assay can be falsely elevated due to the consumption of Biotin. Blood VENOUS BLOOD / Unknown 06/15/2020 9:05 EDT 06/17/2020 16:17 EDT Provider Outr Resulting Lab CHEMISTRY & BLOOD GAS ORDERABLES Performing Organization Address City/State/[facility] Co de Phone Number [facility] [address] [place] [address] documented in this encounter Visit Diagnoses Not on filedocumented in this encounter Care Teams Combination Welder Apprentice Relationship Specialty Start Date End Date Chapo Pyel MD [address] [facility] [address] [place] [id number] PCP - General 05/26/18 documented as of this encounter
--- OUTSIDE RECORDS SUMMARY | 2024-06-18 16:34 | XMS_ITS | Encounter Summary ---
Author Organization [facility] Address [address] [place] [address] Care Team Providers Care Box Sorter Name Role Phone Chapo Pyle MD Primary Care Provide r Reason for Visit * Reason Comments Follow-up Encounter Details Date Type Department Care Team (Late st Contact Info) Description 04/09/2019 11:30 EDT Office Visit [facility] General Surgery - [address] [address] Yajaira Kinsey MD [address] [place] [phone] Malignant neoplasm of central portion of right breast in female, estrogen receptor positive (HCC-CMS) (Primary Dx) Social History Tobacco Use Types Packs/Day Years Used Date Smoking Tobacco: Never Smokeless Tobacco: Never Alcohol Use Standard Drinks/Week Comments No 0 (1 standard drink = 0.6 oz pur e alcohol) Sex and Gender Information Value Date Recorded Sex Assigned at Not on file Gender Identity Female 07/25/2021 10:47 EST Sexual Orientation Not on file documented as of this encounter Last Filed Vital Signs Vital Sign Reading Time Taken Comments Blood Pressure 159/87 04/09/2019 1126 EDT Pulse 67 04/09/2019 1126 EDT Temperature - - Respiratory Rate - - Oxygen Saturation - - Inhaled Oxygen Concentration - - Weight 59.9 kg (132 lb) 04/09/2019 1126 EDT Height 154.9 cm (5' 1) 04/09/2019 1126 EDT Body Mass Index 24.94 04/09/2019 1126 EDT documented in this encounter Progress Notes * Yajaira Kinsey - 04/09/2019 1130 EDT [facility]AM[facility] Date of Service: 04/09/2019 PROBLEM: Chief Complaint Patient presents with ??? Follow-up SUBJECTIVE: Ms. Deanna Isabel is a 73 y.o. White female, presenting with a history of right breast cancer. She was diagnosed one year ago. She reports no concerns. However she did find the anastrozole made her verymoody and difficult hot flashes. Along with feeling tired. She has switched to taking this at night and she states this helped.. Lumpectomy 04/23/2018 Ductal carcinoma mod grade T2N0M0 2 SLN ER+ SC+ Her-2 neg All margins clear closest 2mm Radiation competed 07/08/2019. Arimidex started in July PROBLEM LIST: does not have any pertinent problems on file. Past Medical History: Diagnosis Date ??? Arthritis ??? Cancer (HCC-CMS) ??? Hypertension ??? Irritable bowel syndrome Past Surgical History: Procedure Laterality Date ??? APPENDECTOMY ??? HYSTERECTOMY ??? JOINT REPLACEMENT ??? OTHER SURGICAL HISTORY left axilla mass removed at age 5 Family History Problem Relation Age of Onset ??? Crohn's Disease Mother ??? Arthritis Mother ??? High Blood Pressure Mother ??? Heart Disease Father ??? Early Maternal Aunt 15 leukemia ??? Cancer Maternal Aunt ??? Cancer Maternal Uncle 43 leukemia ??? Cancer Maternal Grandmother ??? Cancer Maternal Grandfather ??? Breast Cancer Other cousins on both side Current Outpatient Medications: acetaminophen (TYLENOL) 500 mg tablet amLODIPine (NORVASC) 2.5 mg tablet anastrozole (ARIMIDEX) 1 mg tablet Magnesium 250 mg tablet metoprolol (LOPRESSOR) 25 mg tablet omeprazole (PRILOSEC) 20 mg capsule ondansetron (ZOFRAN-ODT) 4 mg disintegrating tablet traMADol (ULTRAM) 50 mg tablet No current facility-administered medications for this visit. ALLERGIES: Allergies Allergen Reactions ??? Percocet [Oxycodone-Acetaminophen] REVIEW OF SYSTEMS: Review of Systems 03/31/2018 Head & Neck Headaches;Tinnitus;Ear pain Eyes Blurred vision;Photophobia;Eye pain Cardiovascular Palpitations Psychiatric Insomnia Musculoskeletal Myalgia;Joint pain PHYSICAL EXAM: BP (!) 159/87 Pulse 67 Ht 154.9 cm (61) Wt 59.9 kg (132 lb) BMI 24.94 kg/m?? General appearance: alert, cooperative Skin: Skin color, temperature, turgor normal. No rashes or lesions Head: Normocephalic, without obvious abnormality, atraumatic Eyes: negative Lymph nodes: Cervical, supraclavicular, and axillary nodes normal. Lungs: clear to auscultation bilaterally Heart: regular rate and rhythm Abdomen: soft, non-tender; bowel sounds normal; no masses, no organomegaly Neurologic: Grossly normal Extremities: extremities warm, atraumatic, no cyanosis or edema Breasts: normal appearance, no masses or tenderness, Inspection negative, No nipple retraction or dimpling, No nipple discharge or bleeding, No axillary or supraclavicular adenopathy, in both axilla she has scars (the left from age 5) no lymphadneopathy. the irhgt breast scar healed well, ther's a paucity of tissue and one can feel her rib quite readily. ASSESSMENT: History of right breast cancer. PLAN: 1. First, I reassured the patient I see no evidence of recurrent breast cancer by examination. 2. In addition, we reviewed her mammogram. Her mammogram shows subtle scarring at the surgical site, but no evidence of any form of recurrence. 3. I am glad the patient is able to tolerate the Arimidex and I think it is important she take thismedication. I would like to see her again in 1 year. She informs me she has followup with Dr Armenta in several months as well as Dr Eugene. She will need a mammogram next March. Yajaira Kinsey MD 04/09/2019 documented in this encounter Plan of Treatment Not on file documented as of this encounter Visit Diagnoses Diagnosis Malignant neoplasm of central portion of right breast in female, estrogen receptor positive (HCC-CMS)- Primary documented in this encounter Historical Medications * This list may reflect changes made after this encounter. Medication Sig Dispensed Refills Start Date End Date anastrozole (ARIMIDEX) 1 mg tablet Take 1 mg by mouth daily. 08/06/2019 added in this encounter Care Teams Box Sorter Relationship Specialty Start Date End Date Chapo Pyle MD 4 [facility] [address] [place] [address] PCP - General 05/26/18 documented as of this encounter
--- OUTSIDE RECORDS SUMMARY | 2024-06-18 16:34 | XMS_ITS ---
Author Organization [facility] Address [address] [place] [address] Care Team Providers Care Plate Gauger Name Role Phone Chapo Pyle MD Primary Care Provide r Active Problems Problem Noted Date Diagnosed Date Malignant neoplasm of upper- inner quadrant of right female breast ([facility]-CMS) 06/26/2021 Breast cancer screening 08/06/2019 Malignant neoplasm of upper- inner quadrant of right breast in female, estrogen receptor positive ([facility] 08/06/2019 Overview: March 2018: Right breast adenocarcinoma. - 03/27/18: Presented with a self palpated right breast lump, as well as right nipple inversion x a few years. - 03/27/18: Mammogram and right breast US highly suspicious for breast carcinoma in upper outer quadrant of right breast. - 03/31/18: US guided needle core bx. Positive for adenocarcinoma, invasive ductal type, grade II. ER+ (>95%)/KS+ (40-50%), HER-2 negative. - 04/23/18: Lumpectomy and sentinel node bx. - Pathology showed invasive ductal carcinoma. Tumor size 2.1 x 1.7 x 1.4 cm, moderately differentiated with negative margins. 0/2+ lymph nodes. ER positive (>95%), KS positive (40-50%) and HER-2 negative. - 07/08/18: Complete XRT. - 07/2018: Started Arimidex. 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 current use of aromatase inhibitor 12/2018 Migraine with aura and with status migrainosus, not intractable 08/05/2019 Other specified disorders of bone density and structure, multiple sites 08/05/2019 Tongue sore 08/05/2019 Trigeminal neuralgia 08/05/2019 Breast mass, right 03/31/2018 Current Oncology Plans DENOSUMAB (PROLIA)* Plan Start Date:08/08/2021 Plan Provider:Dheeraj Eugene MD Linked Problems Malignant neoplasm of upper- inner quadrant of right female breast, unspecified estrogen receptor status ([facility]) Treatment Medications Current Day (Day 1 , Cycle 1 - Planned for 03/06/2022) Next Day (Day 1, Cycle 2 - Planned for 03/07/2022) denosumab (PROLIA) denosumab syringe 60 mg denos umab syringe 60 mg Past Plans No past plan information found. Radiation Treatments * Plan Last Treated On Elapsed Days Fractions Treated Prescribed Fraction Dose Prescribed Total Dose 1_Rt Breast 07/08/2018 29 16 of 16 265 cGy 4,240 cG y 2_Rt Brst CD 07/08/2018 29 6 of 6 200 cGy 1,200 c Gy Reference Point Last Treated On Elapsed Days Session Dose Total Dose Beam Dose Point 07/08/2018 29 (Not reported) 4,240 cGy RT BRST CD 07/08/2018 29 (Not reported) 1,200 cGy Tumor Bed Total 07/08/2018 29 (Not reported) 5,440 cGy
--- OUTSIDE RECORDS SUMMARY | 2024-06-18 16:34 | XMS_ITS | Encounter Summary ---
Author Organization [facility] Address [address] [place] [address] Care Team Providers Care Baker Bread Name Role Phone Vinh Pyle MD Primary Care Provide r Encounter Details Date Type Department Care Team (Late st Contact Info) Description 03/30/2019 Historical Results Only [facility] Radiology Results [address] [place], [place] [address] Juan Armenta MD [address] [place] [address] [address] [place] [address] Social History Tobacco Use Types Packs/Day Years [...] Procedure Name Priority Date/Time Associated Diagnosis Comments MA BREAST DIAGNOSTIC ABHI BILATERAL 03/30/2019 11:39 EDT documented in this encounter Results * MA BREAST DIAGNOSTIC ABHI BILATERAL (03/30/2019 11:39 EDT) Anatomical Region Laterality Modality Breast Bilateral Other 03/30/2019 11:3 9 EDT Narrative 03/30/2019 11:39 EDT ? EXAM: MAMMOGRAM/MAMMO BILATERAL DX W ABHI EX. D/ (3535) ? CLINICAL INFORMATION: ? RIGHT BREAST S/P RADIATION F/U, LUMPECTOMY, ? POST-SURGICAL CHANGES ? C50.211 DUCTAL CANCER UIQ RIGHT BREAST ? LEFT BREAST SCREENING Z12.31 ? INDICATION: RIGHT BREAST S/P RADIATION F/U, LUMPECTOMY,, ? POST-SURGICAL CHANGES, C50.211 DUCTAL CANCER UIQ RIGHT BREAST, LEFT ? BREAST SCREENING Z12.31 (R) S/P RADIATION TX BASELINE,(L) SCREEN ? 03/27/18 ? COMPARISON: MAMMOGRAM - 03/27/2018. ? TECHNIQUE: ??Full field digital whole breast 2D (C-view) and 3D CC and ? MLO views of both breasts were obtained. CAD technology was utilized. ? LEFT BREAST: There are scattered areas of fibroglandular density. No ? dominant mass or suspicious microcalcification is seen. ? RIGHT BREAST: There are scattered areas of fibroglandular density. ? There are post-therapeutic changes within the right breast. No new ? dominant mass or suspicious microcalcification is seen. The patient ? should undergo screening mammogram in one year. ? The findings and recommendations were communicated to the patient by ? the window systems administrator shortly following the examination. ? FINAL ASSESSMENT: ??DIAGNOSTIC RIGHT BREAST MAMMOGRAM - BI-RADS ? Category 2 - Benign findings. ? FINAL ASSESSMENT: ??SCREENING LEFT BREAST MAMMOGRAM - BI-RADS Category ? 1 - Negative. ? These results will be communicated to your patient via a lay letter ? from Radiology. ??If any additional imaging is needed we will contact ? your patient directly. ? REPORT SIGNED IN OTHER VENDOR SYSTEM 03/30/2019 ?Reported By: Juventino Murphy MD ? CC: Vinh Pyle MD; Dheeraj Eugene MD; Yajaira Kinsey MD ? Transcribed Date/Time: 03/30/2019 (1139) ? Spray Foam Installer: HIS.[email or web address] ? Printed Date/Time: 05/20/2019 (2001) ? PAGE 1 ? Signed Report ? Procedure Note Juventino Murphy MD - 07/07/2019 EXAM: MAMMOGRAM/MAMMO BILATERAL DX W ABHI EX. D/ (1025) CLINICAL INFORMATION: RIGHT BREAST S/P RADIATION F/U, LUMPECTOMY, POST-SURGICAL CHANGES C50.211 DUCTAL CANCER UIQ RIGHT BREAST LEFT BREAST SCREENING Z12.31 INDICATION: RIGHT BREAST S/P RADIATION F/U, LUMPECTOMY,, POST-SURGICAL CHANGES, C50.211 DUCTAL CANCER UIQ RIGHT BREAST, LEFT BREAST SCREENING Z12.31 (R) S/P RADIATION TX BASELINE,(L) SCREEN 03/27/18 COMPARISON: MAMMOGRAM - 03/27/2018. TECHNIQUE: Full field digital whole breast 2D (C-view) and 3D CCand MLO views of both breasts were obtained. CAD technology wasutilized. LEFT BREAST: There are scattered areas of fibroglandular density.No dominant mass or suspicious microcalcification is seen. RIGHT BREAST: There are scattered areas of fibroglandular density. There are post-therapeutic changes within the right breast. No new dominant mass or suspicious microcalcification is seen. The patient should undergo screening mammogram in one year. The findings and recommendations were communicated to the patientby the window systems administrator shortly following the examination. FINAL ASSESSMENT: DIAGNOSTIC RIGHT BREAST MAMMOGRAM - BI-RADS Category 2 - Benign findings. FINAL ASSESSMENT: SCREENING LEFT BREAST MAMMOGRAM - BI-RADSCategory 1 - Negative. These results will be communicated to your patient via a lay letter from Radiology. If any additional imaging is needed we willcontact your patient directly. REPORT SIGNED IN OTHER VENDOR SYSTEM 03/30/2019 Reported By: Juventino Murphy MD CC: Vinh Pyle MD; Dheeraj Eugene MD; Yajaira Kinsey MD Transcribed Date/Time: 03/30/2019 (1139) Spray Foam Installer: Printed Date/Time: 05/20/2019 (2000) PAGE 1 Signed Report Juan Armenta MD IMG MAMMOGRAPHY O RDERABLES documented in this encounter Visit Diagnoses Not on filedocumented in this encounter Care Teams Baker Bread Relationship Specialty Start Date End Date Vinh Pyle MD [address] [address] PCP - General 05/26/18 documented as of this encounter
--- OUTSIDE RECORDS SUMMARY | 2024-06-18 16:34 | XMS_ITS | Encounter Summary ---
Author Organization [facility] Address [address] [place] [address] Care Team Providers Care Digital Associate Media Director Name Role Phone Chapo Pyle MD Primary Care Provide r Reason for Visit * Reason Comments Injections Prolia * Episode Based Medications (Routine) - Authorization Not Required Specialty Diagnoses / Procedures Referred By Contac t Referred To Contact Diagnoses Malignant neoplasm of upper-inner quadrant of right female breast, unspecified estrogen receptor status (HCC-[place]) [place] [address] [facility] [address] [place] [address] Phone: [facility] Hem Onc Infusion [address] [place] [address] Referral ID Status Reason Start Date Expiration Date Visits Requested Visits Authorized [id number] Authorization Not Required 1 1 1 Encounter Details Date Type Department Care Team (Late st Contact Info) Description 03/06/2022 10:15 EDT Nurse Only [facility] Adult Hematology & Oncology [address] [place] [phone] Nurse, [facility] Hem Onc Malignant neoplasm of upper-inner quadrant of right female breast, unspecified estrogen receptor status (HCC-CMS) (HCC) (HCC-CMS) (Primary Dx) Social History Tobacco Use [...] on file documented as of this encounter Progress Notes * Edita Cheng RN - 03/06/2022 1015 EDT Name/Dose of Drug Administered: Denosumab 60 mg Amount Discarded (if any): none Site prepared with alcohol swab and injection/immunization administered using clean technique. Route of Administration: subcutaneous Anatomic Location: Left Posterior Upper Arm Consent given by:Self Patient response:Tolerated well Supplier:[facility] Nurse Administering the Drug: EDITA CHENG RN Date/Time of Administration: 03/06/22 10:17 Double verification done documented in this encounter Plan of Treatment Not on file documented as of this encounter Visit Diagnoses Diagnosis Malignant neoplasm of upper-inner quadrant of right female breast, unspecified estrogen receptor status (HCC-CMS)- Primary documented in this encounter Administered Medications Inactive Administered Medications - up to 3 most recent administrations Medication Order MAR Action Action Date Dose Rate Site denosumab syringe 60 mg 60 mg, subcutaneous, NOW X1, 1 dose, On Sat03/06/22 at 1030, Routine Given 03/06/2022 10:14 EDT 60 mg Left Ar m documented in this encounter Orders Medications Ordered That Gavin ht Not Have Been Administered Count Last Ordered Date First Ordered Date denosumab syringe 60 mg 1 03/06/2022 documented in this encounter Care Teams Digital Associate Media Director Relationship Specialty Start Date End Date Chapo Pyle MD [address] [place] [address] [address] [place] [address] PCP - General 05/26/18 documented as of this encounter
--- OUTSIDE RECORDS SUMMARY | 2024-06-18 16:34 | XMS_ITS | Clinical Summary ---
Author Organization [facility] Address [address] [place] [address] Care Team Providers Care Telecommunication Engineer Name Role Phone Chapo Pyle MD Primary Care Provide r Allergies Active Allergy Reactions Criticality Noted Date Comments Codeine 02/05/2019 Other reaction(s): anxiety Oxycodone-Acetaminophen 03/28/2018 Medications Medication Sig Dispensed Refills Start Date End Date Status ondansetron (ZOFRAN-ODT) 4 mg disintegrating tablet Take 4 mg by mouth every 8 hours as needed for Nausea. Active traMADol (ULTRAM) 50 mg tablet Take 50 mg by mouth every 6 hours as needed for Pain. Active omeprazole (PRILOSEC) 20 mg capsule Take 20 mg by mouth daily. Active amLODIPine (NORVASC) 2.5 mg tablet Take 2.5 mg by mouth daily. Active Magnesium 250 mg tablet Take 250 mg by mouth daily. Active metoprolol XL (TOPROL-XL) 25 mg tablet Take 25 mg by mouth daily. Active ibuprofen (MOTRIN) 200 mg tablet Take 200 mg by mouth 2 times daily as needed. Active CALCIUM ACETATE-MAGNESIUM CARB ORAL sliding scale Active anastrozole (ARIMIDEX) 1 mg tablet Take 1 Tab by mouth daily. 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 - 03/27/18: Presented with a self palpated right breast lump, as well as right nipple inversion x a few years. - 03/27/18: Mammogram and right breast US highly suspicious for breast carcinoma in upper outer quadrant of right breast. - 03/31/18: US guided needle core bx. Positive for adenocarcinoma, invasive ductal type, grade II. ER+ (>95%)/NC+ (40-50%), HER-2 negative. - 04/23/18: Lumpectomy and sentinel node bx. - Pathology showed invasive ductal carcinoma. Tumor size 2.1 x 1.7 x 1.4 cm, moderately differentiated with negative margins. 0/2+ lymph nodes. ER positive (>95%), NC positive (40-50%) and HER-2 negative. - 07/08/18: Complete XRT. - 07/2018: Started Arimidex. 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/2018 Migraine with aura and with status migrainosus, not intractable 08/05/2019 Other specified disorders of bone density and structure, multiple sites 08/05/2019 Tongue sore 08/05/2019 Trigeminal neuralgia 08/05/2019 Breast mass, right 03/31/2018 Surgical History Surgery Date Site/Laterality Comments HYSTERECTOMY JOINT REPLACEMENT APPENDECTOMY OTHER SURGICAL HISTORY left axilla mass removed at age 5 Medical History Medical History Date Comments Arthritis Cancer ([facility]) Hypertension Irritable bowel syndrome Family History Medical History Relation Comments Heart Disease Father Cancer Maternal Aunt Early Maternal Aunt leukemia Cancer Maternal Grandfather Cancer Maternal Grandmother Cancer Maternal Uncle leukemia Arthritis Mother Crohn's Disease Mother High Blood Pressure Mother Breast Cancer Other cousins on both side Relation Status Comments Father Maternal Aunt Maternal Grandfather Maternal Grandmother Maternal Uncle Mother Alive Other Social History Tobacco Use Types Packs/Day Years [...] 10:47 EST Sexual Orientation Not on file Obstetrics History Last Filed Vital Signs Vital Sign Reading Time Taken Comments Blood Pressure 140/70 09/05/2021 1356 EST Pulse 90 09/05/2021 1356 EST Temperature - - Respiratory Rate - - Oxygen Saturation 98% 09/05/2021 1356 EST Inhaled Oxygen Concentration - - Weight 59 kg (130 lb) 09/05/2021 1356 EST Height 154.9 cm (5' 1) 04/09/2019 1126 EDT Body Mass Index 24.56 04/09/2019 1126 EDT Plan of Treatment Health Maintenance Due Date Last Done Comments Hepatitis C Screen 1945 RSV Immunization ( o r 60+ Years) (1 - 1-dose 60+ series) 2006 Fall Risk Screening 2011 COVID-19 Vaccine (2022- season) 2024 Care Teams Telecommunication Engineer Relationship Specialty Start Date End Date Chapo Pyle MD 4 [facility] [address] [place], [place] [id number] PCP - General 05/26/18
--- OUTSIDE RECORDS SUMMARY | 2024-06-18 16:34 | XMS_ITS | Encounter Summary ---
Author Organization [facility] Address [address] [place] [address] Care Team Providers Care Horn Player Name Role Phone Chapo Pyle MD Primary Care Provide r Reason for Visit * Reason Onset Date Comments Other 07/25/2021 Encounter Details Date Type Department Care Team (Late st Contact Info) Description 07/25/2021 Telephone [facility] Adult Hem Onc Infusion [address] [phone] Paula Brandt, JAYSON Other Social History Tobacco Use Types Packs/Day [...] on file documented as of this encounter Miscellaneous Notes * Telephone Encounter - Paula Brandt RN - 07/25/2021 1634 EST 07/25/21 16:35 Called Deanna to change the time of her appointment, due to scheduling needs. She has been switched to 0800, instead of 1000 on 08/08/21. Amenable. PAULA BRANDT RN documented in this encounter Plan of Treatment Not on file documented as of this encounter Visit Diagnoses Not on filedocumented in this encounter Care Teams Horn Player Relationship Specialty Start Date End Date Chapo Pyle MD 4 [facility] [address] [place] [address] PCP - General 05/26/18 documented as of this encounter
--- OUTSIDE RECORDS SUMMARY | 2024-06-18 16:34 | XMS_ITS | Referral Summary ---
Author Organization [facility] Address [address] [place] [address] Care Team Providers Care Senior Business Objects Developer Name Role Phone Chapo Pyle MD Primary [...] adenocarcinoma, invasive ductal type, grade II. ER+ (>95%)/ND+ (40-50%), HER-2 negative. - 04/23/18: Lumpectomy and sentinel node bx. - Pathology showed invasive ductal carcinoma. Tumor size 2.1 x 1.7 x 1.4 cm, moderately differentiated with negative margins. 0/2+ lymph nodes. ER positive (>95%), ND positive (40-50%) and HER-2 negative. - 07/08/18: Complete XRT. - 07/2018: Started Arimidex. 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 12/2018 Migraine with aura and with status migrainosus, not intractable 08/05/2019 Other specified disorders of bone density and structure, multiple sites 08/05/2019 Tongue sore 08/05/2019 Trigeminal neuralgia 08/05/2019 Breast mass, right 03/31/2018 Social History Tobacco Use Types Packs/Day Years [...] 10:47 EST Sexual Orientation Not on file Last Filed Vital Signs Vital Sign Reading [...] 24.56 04/09/2019 1126 EDT Plan of Treatment Not on file Machia, Deanna V Personal/Famil y Self 1945 [address] [facility] [place] [address] Machia, Deanna V Personal/Famil y Self 1945 [address] [facility] [place] [address] Machia, Deanna V Personal/Famil y Self 1945 [address] [facility] [place] [address] Care Teams Senior Business Objects Developer Relationship Specialty Start Date End Date Chapo Pyle MD 4 [facility] [address] [place] [address] PCP - General 05/26/18
--- OUTSIDE RECORDS SUMMARY | 2024-06-18 16:34 | XMS_ITS | Encounter Summary ---
Author Organization [facility] Address [address] [place] [address] Care Team Providers Care Unload Associate Name Role Phone Chapo Pyle MD Primary Care Provide r Encounter Details Date Type Department Care Team (Late st Contact Info) Description 04/28/2021 Results Only Imaging [facility] Radiology Results [address] [place], [place] [address] Chapo Pyle MD [address] [place] [address] [address] [place], [place] [id number] Social History Tobacco Use Types Packs/Day Years [...] Priority Date/Time Associated Diagnosis Comments MA BREAST SCREENING ABHI BILATERAL 04/28/2021 10:21 EDT documented in this encounter Results * MA BREAST SCREENING ABHI BILATERAL (04/28/2021 10:21 EDT) Anatomical Region Laterality Modality Breast Bilateral Mammography 04/28/2021 10:2 1 EDT Narrative 04/28/2021 10:21 EDT ? EXAM: MAMMOGRAM/MAMMO BILATERAL SCREEN W ??EX. D/ (0933) ? CLINICAL INFORMATION: ? Z12.31 SCREENING ? INDICATION: Z12.31 SCREENING ??SCREENING Apr 25 ? COMPARISON: ??Comparison has been made to previous images. ? TECHNIQUE: ??Full field digital whole breast 2D (C-view) and 3D CC and ? MLO views of both breasts were obtained. CAD technology was utilized. ? FINDINGS: ??The fibroglandular patterns of the breasts are normal. ? There has been no change when compared to previous mammograms and ? there is no mammographic evidence of cancer. ??There are ? post-therapeutic changes in the right breast. There are scattered ? areas of fibroglandular density. ? FINAL ASSESSMENT: ??BILATERAL BREAST - Category 1 - Negative. Routine ? mammographic follow-up is recommended. ? These results will be communicated to your patient via a lay letter ? from Radiology. ??If any additional imaging is needed we will contact ? your patient directly. ? REPORT SIGNED IN OTHER VENDOR SYSTEM 04/28/2021 ?Reported By: Juventino Murphy MD ? CC: Dheeraj Eugene MD ? Transcribed Date/Time: 04/28/2021 (1021) ? Tube Cleaning Operator: ? Printed Date/Time: 04/28/2021 (1113) ? PAGE 1 ? Signed Report ? Procedure Note Juventino Murphy MD - 04/28/2021 EXAM: MAMMOGRAM/MAMMO BILATERAL SCREEN W EX. D/ (0933) CLINICAL INFORMATION: Z12.31 SCREENING INDICATION: Z12.31 SCREENING SCREENING Apr 25 COMPARISON: Comparison has been made to previous images. TECHNIQUE: Full field digital whole breast 2D (C-view) and 3D CCand MLO views of both breasts were obtained. CAD technology wasutilized. FINDINGS: The fibroglandular patterns of the breasts are normal. There has been no change when compared to previous mammograms and there is no mammographic evidence of cancer. There are post-therapeutic changes in the right breast. There are scattered areas of fibroglandular density. FINAL ASSESSMENT: BILATERAL BREAST - Category 1 - Negative.Routine mammographic follow-up is recommended. These results will be communicated to your patient via a lay letter from Radiology. If any additional imaging is needed we willcontact your patient directly. REPORT SIGNED IN OTHER VENDOR SYSTEM 04/28/2021 Reported By: Juventino Murphy MD CC: Dheeraj Eugene MD Transcribed Date/Time: 04/28/2021 (1021) Tube Cleaning Operator: Printed Date/Time: 04/28/2021 (1111) PAGE 1 Signed Report Chapo Pyle MD IMG MAMMOGRAP HY ORDERABLES documented in this encounter Visit Diagnoses Not on filedocumented in this encounter Care Teams Unload Associate Relationship Specialty Start Date End Date Chapo Pyle MD 4 [facility] [address] [place] [address] PCP - General 05/26/18 documented as of this encounter
--- OUTSIDE RECORDS SUMMARY | 2024-06-18 16:34 | XMS_ITS | Encounter Summary ---
Author Organization [facility] Address [address] [place] [address] Care Team Providers Care Collar Folder Operator Name Role Phone Chapo Pyle MD Primary Care Provide r Reason for Visit * Reason Onset Date Comments Medications Refill 12/29/2020 Encounter Details Date Type Department Care Team (Late st Contact Info) Description 12/29/2020 Refill [facility] [address] [place] [id number] [place] [address] [facility] [address] [place] [address] Medications Refill Social History Tobacco Use Types Packs/Day Years [...] on file documented as of this encounter Ordered Prescriptions Prescription Sig Dispensed Refills Start Date End Da te anastrozole (ARIMIDEX) 1 mg tablet Take 1 Tab by mouth daily. 90 Tab 3 12/29/2020 documented in this encounter Miscellaneous Notes * Telephone Encounter - Amol Caicedo RN - 12/29/2020 8481 EDT Refill request on script line; Anastrozole 1mg Bushra Gallardo Last seen by Dr. Eugene 08/04/20; Plan: 1. Continue Arimidex. 2. Continue Prolia every 6 months. 3. Return for follow-up 1 year. Next appt w/ ET 08/07/21 Agree with attached? documented in this encounter Plan of Treatment Not on file documented as of this encounter Visit Diagnoses Not on filedocumented in this encounter Care Teams Collar Folder Operator Relationship Specialty Start Date End Date Chapo Pyle MD [address] [address] PCP - General 05/26/18 documented as of this encounter
--- OUTSIDE RECORDS SUMMARY | 2024-06-18 16:34 | XMS_ITS | Encounter Summary ---
Author Organization [facility] Address [address] [place] [address] Care Team Providers Care Parts Counter Representative Name Role Phone Chapo Pyle MD Primary Care Provide r Encounter Details Date Type Department Care Team (Latest Contact Info) Description 10/22/2018 15:51 EST - 10/22/2018 23:59 EST Hospital Encounter [facility] - [address] [address] Edwin Bran, DMD [address] [facility] [address] [place] [address] [phone] Discharge Disposition: Home or Self Care Social History Tobacco Use Types Packs/Day Years Used Date Smoking Tobacco: Never Smokeless Tobacco: Never Alcohol Use Standard Drinks/Week Comments No 0 (1 standard drink = 0.6 oz pur e alcohol) Sex and Gender Information Value Date Recorded Sex Assigned at Not on file Gender Identity Female 07/25/2021 10:47 EST Sexual Orientation Not on file documented as of this encounter Discharge Diagnoses Diagnosis K14.0 Glossitis-K14.0[ICD-10-CM] documented in this encounter Medications at Time of Discharge Medication Sig Dispensed Refills Start Date End Date amLODIPine (NORVASC) 2.5 mg tablet Take 2.5 mg by mouth daily. Magnesium 250 mg tablet Take 250 mg by mouth daily. omeprazole (PRILOSEC) 20 mg capsule Take 20 mg by mouth daily. ondansetron (ZOFRAN-ODT) 4 mg disintegrating tablet Take 4 mg by mouth every 8 hours as needed for Nausea. traMADol (ULTRAM) 50 mg tablet Take 50 mg by mouth every 6 hours as needed for Pain. acetaminophen (TYLENOL) 500 mg tablet Take 1,000 mg by mouth every 6 hours as needed for Pain. 09/05/2021 denosumab (PROLIA) 60 mg/mL syringe syringe Inject into the skin. EVERY 6 MONTHS 08/07/2018 08/04/2020 metoprolol (LOPRESSOR) 25 mg tablet Take 12.5 mg by mouth 2 times daily. 08/06/2019 Water liquid 150 mL with magnesium hydroxide 400 mg/5 mL suspension 400 mg, diphenhydrAMINE 12.5 mg/5 mL elixir 60 mg, nystatin 100,000 unit/mL suspension 500,000 Units Take by mouth 3 times daily as needed. 08/07/2018 08/06/2019 documented as of this encounter Discharge Disposition Disposition Code Departure Means Destination Home or Self Care documented in this encounter Plan of Treatment Not on file documented as of this encounter Visit Diagnoses Not on filedocumented in this encounter Care Teams Parts Counter Representative Relationship Specialty Start Date End Date Chapo Pyle MD [address] [place] [address] PCP - General 05/26/18 documented as of this encounter
--- OUTSIDE RECORDS SUMMARY | 2024-06-18 16:34 | XMS_ITS | Encounter Summary ---
Author Organization [facility] Address [address] [place] [address] Care Team Providers Care Emergency Dispatcher Name Role Phone Chapo Pyle MD Primary Care Provide r Encounter Details Date Type Department Care Team (Late st Contact Info) Description 10/22/2018 Results Only [facility] [phone] Edwin Bran, CAR [address] [facility] [address] [place] [phone] Social History Tobacco Use Types Packs/Day Years [...] Procedure Name Priority Date/Time Associated Diagnosis Comments SURGICAL PATHOLOGY Routine 10/22/2018 12 :59 EST documented in this encounter Results * SURGICAL PATHOLOGY (10/22/2018 12:59 EST) Pathology Report: SURGICAL PATHOLOGY REPORT Reports generated via electronic interface contain original data; however they are lacking the format of the original report. Caution should be taken when reading/interpreting unformatted reports. Name: ? DEANNA FOOTE V ? Accession #: ? [id number] ? : ? 1945 (Age: 73) ??F ? Collect Date: ? 10/22/2018 ? Location: ? [facility] ? Receive Date: ? 10/23/2018 ? Provider: EDWIN BRAN DMD Copy to: ? Final Pathologic Diagnosis: Tongue, right LATERAL BORDER, ulceration, biopsy: - ??Ulceration with acute and chronic inflammation - ??PAS stain is negative for microorganisms - ??No evidence of malignancy Comment: ? Metal Hanging Supervisor slides of this case were reviewed at intradepartmental consultation conference. ?? Document reviewed and electronically signed by: CLAUDE NICHOLAS MD Report ??Date: 10/29/2018 11:31 By the signature above, the attending physician certifies that he/she has personally conducted a gross and/or microscopic examination of the described specimens and rendered or confirmed the above diagnosis. Specimen(s) Received: Ulceration right lateral border of tongue Clinical History: R/O squamous cell Ca Gross Description: ? Received in formalin labelled with proper patient identification (initials M, C) and right lateral border of tongue is a teardrop shaped excision (1.5 x 1.0 cm and is excised to a depth of 0.3 cm). There is an undesignated suture at the tip, arbitrarily designated as 12 o'clock. ? The mucosa is carrillo-hoover with an eccentric ulcerative focus (0.5 x 0.4 x 0.1 cm). The 3 o'clock half is inked blue and the 9 o'clock half is inked black. The specimen is serially sectioned from 12 o'clock to 6 o'clock and submitted entirely as follows: BLOCK KAPADIA 1- ??12 o'clock tip, en face 2- ??central sections 3- ??6 o'clock tip, en face ARMEN Ellison ([facility]) 10/23/2018 1:28 PM End of Report [facility] 10/22/2018 12:5 9 EST 10/23/2018 12:59 EST Edwin Bran DMD PATHOLOGY ORDERABLES [facility] [address] [place] [address] documented in this encounter Visit Diagnoses Not on filedocumented in this encounter Care Teams Emergency Dispatcher Relationship Specialty Start Date End Date Chapo Pyle MD [address] [place] [address] PCP - General 05/26/18 documented as of this encounter
--- OUTSIDE RECORDS SUMMARY | 2024-06-18 16:34 | XMS_ITS | Encounter Summary ---
Author Organization [facility] Address [address] [place] [address] Care Team Providers Care Appeals Referee Name Role Phone Chapo Pyle MD Primary Care Provide r Encounter Details Date Type Department Care Team (Late st Contact Info) Description 09/19/2021 Documentation Visit [facility] [address] [place] [address] Martha Mckay MD [facility] [address] [place] [address] Social History Tobacco Use Types Packs/Day Years [...] as of this encounter Progress Notes * Martha Mckay MD - 09/19/2021 0954 EST Gastroenterology & Hepatology Initial Visit Reason for Referral: Abdominal pain Referring Provider: Chapo Pyle HPI: Deanna Isabel is a 75 y.o. female who was referred for evaluation of abdominal pain and diarrhea. She reports several different types of abdominal pain including pain located in the right upper quadrant, left upper quadrant, and across her lower abdomen. She says the right upper quadrant pain began about 1 or 2 years ago and seems to occur after eating. It starts on her right flank and moves around to the right upper quadrant. There is no nausea or vomiting. She denies any jaundice, fever or chills. The pain in the left upper quadrant began about 6 months ago and also would occur sometimes after eating, at times this would wake her from sleep. She also began having problems with diarrhea around 6 months ago as well although prior to this she did have intermittent bouts of diarrhea associated with lower abdominal pain about once a year for about 10 years. This pain in the left upper quadrant often lasts 30 to 45 minutes. She went to see her PCP and underwent some testing at [facility] including a CT scan of the abdomen and pelvis on 06/30/2021. This showed no evidence of gallbladder pathology, normal pancreas, and an element of circumferential thickening of the sigmoid which could be related to underdistention or lack of contrast in the lumen however possibility of an area of colitis cannot be excluded. In addition there was a small hemangioma in the left lobe of the liver. She also did have an ultrasound in September 2019 which showed no evidence of biliary pathology such ascholelithiasis. Also of note is a CAT scan in 2018 showing question of wall thickening of the mid transverse colon through the rectum versus nondistention. She reports having had a colonoscopy at [facility] about 5 years ago and reportedly this was normal. She denies significant weight loss or rectal bleeding. She reports that she was given a prescription for an antibiotic which she took for only 4 days because it made her sick however after those 4 days the diarrhea and the abdominal pain have largely resolved. PMH: Past Medical History: Diagnosis Date ??? Arthritis ??? Cancer (HCC-CMS) (HCC) ??? Hypertension ??? Irritable bowel syndrome PSH: Past Surgical History: Procedure Laterality Date ??? APPENDECTOMY ??? HYSTERECTOMY ??? JOINT REPLACEMENT ??? OTHER SURGICAL HISTORY left axilla mass removed at age 5 ROS: A 10-point ROS was performed and is negative other than stated in HPI. She does report some joint pain and headaches. Current Outpatient Medications on File Prior to Visit Medication Sig Dispense Refill ??? amLODIPine (NORVASC) 2.5 mg tablet Take 2.5 mg by mouth daily. ??? anastrozole (ARIMIDEX) 1 mg tablet Take 1 Tab by mouth daily. 90 Tab 3 ??? CALCIUM ACETATE-MAGNESIUM CARB ORAL sliding scale ??? ibuprofen (MOTRIN) 200 mg tablet Take 200 mg by mouth 2 times daily as needed. ??? Magnesium 250 mg tablet Take 250 mg by mouth daily. ??? metoprolol XL (TOPROL-XL) 25 mg tablet Take 25 mg by mouth daily. ??? omeprazole (PRILOSEC) 20 mg capsule Take 20 mg by mouth daily. ??? ondansetron (ZOFRAN-ODT) 4 mg disintegrating tablet Take 4 mg by mouth every 8 hours as needed for Nausea. ??? traMADol (ULTRAM) 50 mg tablet Take 50 mg by mouth every 6 hours as needed for Pain. No current facility-administered medications on file prior to visit. Allergies Allergen Reactions ??? Codeine Other reaction(s): anxiety ??? Percocet [Oxycodone-Acetaminophen] Social History: Social History Tobacco Use ??? Smoking status: Never Smoker ??? Smokeless tobacco: Never Used Substance Use Topics ??? Alcohol use: No ??? Drug use: No Family History: She says that her mother and grandmother had similar abdominal pain but never had adiagnosis. Physical Exam: VS: Her weight today is 136, BP 160/90, temperature 97.1. General: In NAD HEENT: No scleral icterus, MMM Heart: RR, no murmur Lungs: clear Abdomen: Soft, Nontender, Nondistended, No hepatosplenomegaly Extremities: No peripheral edema Skin: No evident findings Labs and Imaging: As noted above. In addition records from her PCP office show normal CBC, normal liver enzymes, stool tests including C. difficile and bacterial culture negative, lactoferrin was positive in June. Impression: 75-year-old female with multiple types of abdominal pain, now mostly resolved with the exception of some right flank and right upper quadrant discomfort after eating. Ultrasound and CT show no evidence of biliary tract disease. The differential diagnosis is rather extensive because of the multiple locations of the abdominal pain. She could have biliary dyskinesia as a cause for the right upper quadrant pain. The differential diagnosis would also include functional dyspepsia. With respect to the left-sided abdominal pain and diarrhea which have now resolved, it is possible that this could be related to some form of colitis however it is difficult to explain why this would resolve with a few days of antibiotics. In addition she has episodic bouts of lower abdominal pain and diarrhea which could represent episodes of diverticulitis, IBS, or acute colitis such as colonic ischemia. We discussed the option of a repeat colonoscopy for further evaluation however I think it would be more useful if she were experiencing symptoms such as diarrhea and abdominal pain at the time. Consequently I suggested she contact our office if her symptoms recur. With respect to the right upper quadrant pain, further evaluation by [facility] scan is an option to rule out biliary dyskinesia. Plan: 1. If symptoms recur she will contact our office at which time we will try to arrange for a colonoscopy in the short-term. 2. She was advised to try following a low-fat diet to see whether this would improve the right upper quadrant pain. 3. If she continues to experience postprandial right upper quadrant pain consider [facility] scan to rule out biliary dyskinesia. MARTHA MCKAY MD 09/19/2021 documented in this encounter Plan of Treatment Not on file documented as of this encounter Visit Diagnoses Not on filedocumented in this encounter Care Teams Appeals Referee Relationship Specialty Start Date End Date Chapo Pyle MD [address] [facility] [address] [place] [address] PCP - General 05/26/18 documented as of this encounter
--- OUTSIDE RECORDS SUMMARY | 2024-06-18 16:34 | XMS_ITS | Encounter Summary ---
Author Organization [facility] Address [address] [place] [address] Care Team Providers Care Bordereau Clerk Name Role Phone Chapo Pyle MD Primary Care Provide r Encounter Details Date Type Department Care Team (Late st Contact Info) Description 06/26/2021 Orders Only [facility] Adult Hematology & Oncology [address] [place] [address] [id number] Yenifer Vargas RN Malignant neoplasm of upper-inner quadrant of right [...] status (HCC-CMS)- Primary documented in this encounter Care Teams Bordereau Clerk Relationship Specialty Start Date End Date Chapo Pyle MD [address] [facility] [address] [place] [address] PCP - General 05/26/18 documented as of this encounter
--- OUTSIDE RECORDS SUMMARY | 2024-06-18 16:34 | XMS_ITS | Encounter Summary ---
Author Organization [facility] Address [address] [place] [address] Care Team Providers Care Postdoctoral Research Associate Name Role Phone Chapo Pyle MD Primary Care Provide r Encounter Details Date Type Department Care Team (Late st Contact Info) Description 12/10/2023 Results Only [facility] Radiation Oncology - Main [place] [address] [place], [place] [id number] Unknown, Provider, Social History Tobacco Use Types Packs/Day Years [...] Procedure Name Priority Date/Time Associated Diagnosis Comments RAD ONC ARIA COURSE SUMMARY Routine 12/10/2023 10:18 EDT documented in this encounter Results * RAD ONC ARIA COURSE SUMMARY (12/10/2023 10:18 EDT) Course ID C1 ARIA RADIATION ONCOLOGY Course End Date 12/10/2023 10:18 ARIA RADIATION ONCOLOGY Course First Treatment Date 06/09/2018 15:33 [facility]A RADIATION ONCOLOGY Course Last Treatment Date 07/08/2018 13:09 [facility] RADIATION ONCOLOGY Course Elapsed Days 29 [facility] RADIATION ONCOLOGY Reference Point ID Beam Dose Point [facility]A RADIATION ONCOLOGY Reference Point Dosage Given to Date 42.4 Gy [facility] RADIATION ONCOLOGY Reference Point ID RT BRST CD [facility]A RADIATION ONCOLOGY Reference Point Dosage Given to Date 12 Gy [facility]A RADIATION ONCOLOGY Reference Point ID Tumor Bed Total [facility]A RADIATION ONCOLOGY Reference Point Dosage Given to Date 54.4 Gy [facility]A RADIATION ONCOLOGY Plan ID 1_Rt Breast [facility] RADIATION ONCOLOGY Plan Name 1_Rt Breast [facility]A RADIATION ONCOLOGY Plan Fractions Treated to Date 16 [facility]A RADIATION ONCOLOGY Plan Total Fractions Prescribed 16 [facility]A RADIATION ONCOLOGY Plan Prescribed Dose Per Fraction 2.65 Gy ARIA RADIATION ONCOLOGY Plan Total Prescribed Dose 4,240 cGy [facility] RADIATION ONCOLOGY Plan Primary Reference Point Beam Dose Point ARIA RADIATION ONCOLOGY Plan ID 2_Rt Brst CD [facility]A RADIATION ONCOLOGY Plan Name 2_Rt Brst CD [facility]A RADIATION ONCOLOGY Plan Fractions Treated to Date 6 [facility]A RADIATION ONCOLOGY Plan Total Fractions Prescribed 6 ARIA RADIATION ONCOLOGY Plan Prescribed Dose Per Fraction 2 Gy ARIA RADIATION ONCOLOGY Plan Total Prescribed Dose 1,200 cGy ARIA RADIATION ONCOLOGY Plan Primary Reference Point RT BRST CD ARIA RADIATION ONCOLOGY 12/10/2023 10:1 8 EDT Provider Unknown RADIATION ONCOLOGY O RDERABLES [facility] RADIATION ONCOLOGY documented in this encounter Visit Diagnoses Not on filedocumented in this encounter Care Teams Postdoctoral Research Associate Relationship Specialty Start Date End Date Chapo Pyle MD [address] [place] [id number] PCP - General 05/26/18 documented as of this encounter
--- OUTSIDE RECORDS SUMMARY | 2024-06-18 16:34 | XMS_ITS | Encounter Summary ---
Author Organization [facility] Address [address] [place] [address] Care Team Providers Care Patient Portal Concierge Name Role Phone Chapo Pyle MD Primary Care Provide r Encounter Details Date Type Department Care Team (Latest Contact Info) Description 03/30/2019 9:24 EDT - 03/30/2019 23:59 EDT Hospital Encounter [facility] [address] [place] [address] Unknown, Provider, Discharge Disposition: Home or Self Care Social [...] on file documented as of this encounter Medications at Time of Discharge [...] Code Departure Means Destination Home or Self Nursing Home documented in this encounter Plan of Treatment Not on file documented as of this encounter Visit Diagnoses Not on filedocumented in this encounter Care Teams Patient Portal Concierge Relationship Specialty Start Date End Date Chapo Pyle MD [address] [place] [id number] PCP - General 05/26/18 documented as of this encounter
--- OUTSIDE RECORDS SUMMARY | 2024-06-18 16:34 | XMS_ITS | Encounter Summary ---
Author Organization [facility] Address [address] [place] [address] Care Team Providers Care Certified Pharmacist Assistant Name Role Phone Chapo Pyle MD Primary Care Provide r Reason for Visit * Reason Comments Follow-up Encounter Details Date Type Department Care Team (Late st Contact Info) Description 11/10/2018 13:45 EDT Office Visit [facility] General Surgery - [place] [address] [address] Yajaira Kinsey MD [address] [address] Malignant neoplasm of central portion of [...] Sign Reading Time Taken Comments Blood Pressure 170/90 11/10/2018 1349 EDT Pulse 71 11/10/2018 1349 EDT Temperature - - Respiratory Rate - - Oxygen Saturation - - Inhaled Oxygen Concentration - - Weight 60.8 kg (134 lb) 11/10/2018 1349 EDT Height - - Body Mass Index 25.32 03/31/2018 1428 EDT documented in this encounter Progress Notes * Yajaira Kinsey MD - 11/10/2018 1345 EDT [facility] HISTORY AND PHYSICAL EXAMINATION Date of Service: 11/10/2018 PROBLEM: Chief Complaint Patient presents with ??? Follow-up SUBJECTIVE: Ms. Deanna Isabel is a 73 y.o. White female, presenting with a history of right breast cancer. She completed radiation in the fall and started Arimidex in July. She feels well no concerns. Minimal hot flashes . Lumpectomy 04/23/2018 Ductal carcinoma mod grade [id number] 2 SLN ER+ NE+ Her-2 neg All margins clear closest 2mm PROBLEM LIST: does not have any pertinent [...] mg tablet amLODIPine (NORVASC) 2.5 mg tablet Magnesium 250 mg tablet metoprolol [...] Musculoskeletal Myalgia;Joint pain PHYSICAL EXAM: BP (!) 170/90 Pulse 71 Wt 60.8 kg (134 lb) BMI 25.32 kg/m?? General appearance: alert, cooperative Skin: Skin color, temperature, turgor normal. No rashes or lesions Head: Normocephalic, without obvious abnormality, atraumatic Eyes: negative Neck: supple, symmetrical, trachea midline and no JVD Lymph nodes: Cervical, supraclavicular, and axillary nodes normal. Lungs: clear to auscultation bilaterally Heart: regular rate and rhythm Abdomen: soft, non-tender; bowel sounds normal; no masses, no organomegaly Back: negative Breasts: normal appearance, no masses or tenderness, Inspection negative, No nipple retraction or dimpling, No axillary or supraclavicular adenopathy, Normal to palpation without dominant masses, herright breast scar is healing well. Mild fibrotic ridge. No axillary lymphadenopathy. The left axilla notable for an old chronic scar, raised and hard. ASSESSMENT: 1. Malignant neoplasm of central portion of right breast in female, estrogen receptor positive (HCC-CMS) PLAN: 1. I reassured the patient I see no evidence of recurrence based on examination today. 2. I am also quite pleased with how well she has done with all the treatment and also tolerating her Arimidex with minimal hot flashes and other side effects. 3. She has followup with Dr Eugene later in the spring and then plans to see Dr Armenta in May. Therefore, I would like to see her in the end of March. She is scheduled for a mammogram in mid March. Yajaira Kinsey MD 11/10/2018 documented in this encounter Plan of Treatment Not on file documented as of this encounter Visit Diagnoses Diagnosis Malignant neoplasm of central portion of right breast in female, estrogen receptor positive (HCC-CMS)- Primary documented in this encounter Care Teams Certified Pharmacist Assistant Relationship Specialty Start Date End Date Chapo Pyle MD [address] [place] [address] [address] [place] [address] PCP - General 05/26/18 documented as of this encounter
--- OUTSIDE RECORDS SUMMARY | 2024-06-18 16:34 | XMS_ITS | Encounter Summary ---
Author Organization [facility] Address [address] [place] [address] Care Team Providers Care Tower Erector Helper Name Role Phone Chapo Pyle MD Primary Care Provide r Reason for Visit * Reason Comments Injections Encounter Details Date Type Department Care Team (Latest Contact Info) Description 02/02/2021 9:30 EDT Procedure visit [facility] Adult Hematology & Oncology [address] [place] [address] Nurse, [facility] Other specified disorders of bone density and structure, multiple sites (Primary Dx) Social History Tobacco Use Types [...] as of this encounter Progress Notes * Yenifer Vargas RN - 02/02/2021 0930 EDT 02/02/21 14:03 Patient presented to the office for Prolia injection. She offered no complaints and denied any pain. Tolerated injection w/o difficulty. documented in this encounter Plan of Treatment Not on file documented as of this encounter Visit Diagnoses Diagnosis Other specified disorders of bone density and structure, multiple sites- Primary documented in this encounter Administered Medications Inactive Administered Medications - up to 3 most recent administrations Medication Order MAR Action Action Date Dose Rate Site denosumab syringe 60 mg 60 mg, subcutaneous, NOW X1, 1 dose, On Michaela 02/02/21 at 1430, Routine Given 02/02/2021 14:05 EDT 60 mg Right A rm documented in this encounter Care Teams Tower Erector Helper Relationship Specialty Start Date End Date Chapo Pyle MD [address] [address] PCP - General 05/26/18 documented as of this encounter
--- OUTSIDE RECORDS SUMMARY | 2024-06-18 16:34 | XMS_ITS | Encounter Summary ---
Author Organization [facility] Address [address] [place] [address] Care Team Providers Care Eligibility Services Representative Name Role Phone Chapo Pyle MD Primary Care Provide r Reason for Visit * Reason Comments Follow-up Encounter Details Date Type Department Care Team (Late st Contact Info) Description 09/05/2021 14:00 EST Office Visit [facility] Adult Hematology & Oncology [address] [place] [address] [phone] [place] [address] [facility] [address] [place] [address] (Fax) Malignant neoplasm of upper-inner quadrant of right breast in female, estrogen receptor positive (HCC-CMS) (HCC) (HCC-CMS) (Primary Dx) Social History [...] kg (130 lb) 09/05/2021 1356 EST Height - - Body Mass Index 24.56 04/09/2019 1126 EDT documented in this encounter Progress Notes * Dheeraj Eugene MD - 09/05/2021 1400 EST patient Active Problem List Diagnosis ??? Malignant neoplasm of upper-inner quadrant of right breast in female, estrogen receptor positive ([facility]) March 2018: Right breast adenocarcinoma. - 03/27/18: Presented with a self palpated right breast lump, as well as right nipple inversion x afew years. - 03/27/18: Mammogram and right breast US highly suspicious for breast carcinoma in upper outer quadrant of right breast. - 03/31/18: US guided needle core bx. Positive for adenocarcinoma, invasive ductal type, grade II. ER+ (>95%)/AK+ (40-50%), HER-2 negative. - 04/23/18: Lumpectomy and sentinel node bx. - Pathology showed invasive ductal carcinoma. Tumor size 2.1 x 1.7 x 1.4 cm, moderately differentiated with negative margins. 0/2+ lymph nodes. ER positive (>95%), AK positive (40-50%) and HER-2 negative. - 07/08/18: Complete XRT. - 07/2018: Started Arimidex. Subjective Interim History: Patient returns for a follow-up. States that she stopped arimidex approximately 2 months ago due to bad joint pains. However, she did not notice any major difference. Her hot flasheshave improved since stopping Arimidex. Denies feeling any abnormal lumps in her breasts. Review of Systems: Review of Systems Constitutional: Negative for chills and fever. HENT: Negative for ear pain, sinus pain and sore throat. Positive for jaw pain from trigeminal neuralgia Eyes: Negative for pain and discharge. Respiratory: Negative for cough, hemoptysis and shortness of breath. Cardiovascular: Negative for chest pain and palpitations. Gastrointestinal: Negative for diarrhea, nausea and vomiting. Genitourinary: Negative for dysuria and urgency. Musculoskeletal: Positive for joint pain and myalgias. Negative for back pain. Skin: Negative. Neurological: Negative for dizziness, speech change and headaches. Endo/Heme/Allergies: Negative. Psychiatric/Behavioral: Positive for intermittent mood changes. Family History Problem Relation Age of Onset ??? Crohn's Disease Mother ??? Arthritis Mother ??? High Blood Pressure Mother ??? Heart Disease Father ??? Early Maternal Aunt 15 leukemia ??? Cancer Maternal Aunt ??? Cancer Maternal Uncle 43 leukemia ??? Cancer Maternal Grandmother ??? Cancer Maternal Grandfather ??? Breast Cancer Other cousins on both side Social History Tobacco Use ??? Smoking status: Never Smoker ??? Smokeless tobacco: Never Used Substance Use Topics ??? Alcohol use: No ??? Drug use: No Current Outpatient Medications Medication Sig Dispense Refill Last Dose ??? amLODIPine (NORVASC) 2.5 mg tablet Take 2.5 mg by mouth daily. Taking ??? anastrozole (ARIMIDEX) 1 mg tablet Take 1 Tab by mouth daily. 90 Tab 3 Taking ??? CALCIUM ACETATE-MAGNESIUM CARB ORAL sliding scale Taking ??? ibuprofen (MOTRIN) 200 mg tablet Take 200 mg by mouth 2 times daily as needed. Taking ??? Magnesium 250 mg tablet Take 250 mg by mouth daily. Taking ??? metoprolol XL (TOPROL-XL) 25 mg tablet Take 25 mg by mouth daily. Taking ??? omeprazole (PRILOSEC) 20 mg capsule Take 20 mg by mouth daily. Taking ??? ondansetron (ZOFRAN-ODT) 4 mg disintegrating tablet Take 4 mg by mouth every 8 hours as needed for Nausea. Taking ??? traMADol (ULTRAM) 50 mg tablet Take 50 mg by mouth every 6 hours as needed for Pain. Taking No current facility-administered medications for this visit. Vitals: 09/05/21 1356 BP: 140/70 Pulse: 90 SpO2: 98% Weight: 59 kg (130 lb) Wt Readings from Last 3 Encounters: 09/05/21 59 kg (130 lb) 08/04/20 60.3 kg (133 lb) 08/06/19 61.7 kg (136 lb) Physical Exam: Physical Exam Constitutional: She is oriented to person, place, and time. HENT: Head: Normocephalic and atraumatic. Eyes: EOM are normal. Cardiovascular: Regular rhythm. Pulmonary/Chest: Effort normal and breath sounds normal. Abdominal: Soft. There is no abdominal tenderness. Musculoskeletal: Cervical back: Normal range of motion and neck supple. Neurological: She is alert and oriented to person, place, and time. Skin: Skin is warm and dry. She is not diaphoretic. Breasts: Surgical scar in the upper inner quadrant of the right breast unremarkable. No palpable lumps or skin changes. Left breast is unremarkable. No palpable cervical, supraclavicular or axillary adenopathy. Assessment & Plan 1. Invasive right ductal breast adenocarcinoma. Tumor size 2.1 x 1.7 x 1.4 cm, moderately differentiated with negative margins. Stage pT2, pN0(sn), Grade II, 0/2 lymph node involvement. ER+/AK+/Her-2negative. S/p XRT. Clinically doing well with no evidence of recurrence. Mammogram from April last year was unremarkable. She is currently not on Arimidex and stopped this approximately 2 months ago. Did not notice any improvement in her arthralgias. I encouraged her to restart this and see how she does. If she has problems tolerating, will discuss other endocrine therapy options. 2. Bone health. 07/2018 bone density scan showed evidence of osteopenia. Continue calcium-Vitamin D3 supplementation. Continue Prolia [id number]. Plan: 1. Continue Arimidex. 2. Proceed with Prolia injection today. 3. Return for follow-up 1 year. Nurse visit for Prolia in 6 months. Requested Prescriptions No prescriptions requested or ordered in this encounter Dheeraj Eugene MD Hematology/Oncology [facility] Cc: Dr. Armenta, Dr. Pyle. * Shola Vargas RN - 09/05/2021 1400 EST Suspicion of Abuse: no - If yes, please document evidence: - Assessed on: 09/05/21 17:45 - Assessed by: SHOLA VARGAS RN Procedures: - Venipuncture Performed by: SHOLA VARGAS RN Site Collected: Right Antecubital Space Volume Withdrawn: LAV EDTA 3.0 mL and [place] SST 8.5 mL Patient Response:Patient tolerated venipuncture well Number of attempts: Collected on: 09/05/21 17:45 Ordering Provider:Dheeraj Eugene MD * Shola Vargas RN - 09/05/2021 1400 EST Suspicion of Abuse: no - If yes, please document evidence: - Assessed on: 09/05/21 - Assessed by: SHOLA VARGAS RN documented in this encounter Miscellaneous Notes * Addendum Note - Shola Vargas RN - 09/05/2021 1400 ESTAddended by: SHOLA VARGAS on: 09/05/2021 17:45 Modules accepted: Orders documented in this encounter Plan of Treatment Scheduled Orders Name Type Priority Associated Diagnoses Orde r Schedule COMPREHENSIVE METABOLIC PANEL (CMP) Lab Routine Malignant neoplasm of upper-inner quadrant of right breast in female, estrogen receptor positive (HCC-CMS) Ordered: 09/05/2021 documented as of this encounter Visit Diagnoses Diagnosis Malignant neoplasm of upper-inner quadrant of right breast in female, estrogen receptor positive (HCC-CMS)- Primary documented in this encounter Administered Medications Inactive Administered Medications - up to 3 most recent administrations Medication Order MAR Action Action Date Dose Rate Site denosumab syringe 60 mg 60 mg, subcutaneous, NOW X1, 1 dose, On Sat09/05/21 at 1800, Routine Given 09/05/2021 17:44 EST 60 mg Left Ar m documented in this encounter Discontinued Medications Medication Sig Discontinue Reason Start Date End Da te acetaminophen (TYLENOL) 500 mg tablet Take 1,000 mg by mouth every 6 hours as needed for Pain. Patient Stopped Taking 09/05/2021 documented as of this encounter Orders Medications Ordered That Gavin ht Not Have Been Administered Count Last Ordered Date First Ordered Date denosumab syringe 60 mg 1 09/05/2021 documented in this encounter Care Teams Eligibility Services Representative Relationship Specialty Start Date End Date Chapo Pyle MD [address] [place] [address] [address] [place] [address] PCP - General 05/26/18 documented as of this encounter
--- OUTSIDE RECORDS SUMMARY | 2024-06-18 16:34 | XMS_ITS | Encounter Summary ---
Author Organization [facility] Address [address] [place] [address] Care Team Providers Care Fruit Canner Name Role Phone Chapo Pyle MD Primary Care Provide r Encounter Details Date Type Department Care Team (Late st Contact Info) Description 06/23/2021 Lab Requisition [facility] Pathology & Laboratory Medicine - [facility] [address] [place], [place] [address] Outr Resulting Lab, Provider Social History Tobacco [...] Procedure Name Priority Date/Time Associated Diagnosis Comments FECAL BACTERIAL PATHOGENS BY PCR Routine 06/23/2021 7:00 EDT documented in this encounter Results * FECAL BACTERIAL PATHOGENS BY PCR (06/23/2021 7:00 EDT) Salmonella PCR Negative Negative 06/24/2021 14:08 EDT [facility] Shigella/Enteroin vasive E. coli Negative Negative 06/24/2021 14:08 EDT [facility] HN LAB CAMPYLOBACTER PCR Negative Negative 06/24/2021 14:08 EDT [facility] Shiga Toxin PCR Negative Negative 14:08 EDT [facility] Feces SPECIMEN FROM RECTUM / Unknown 06/23/2021 7:00 EDT 06/23/2021 22:29 EDT Provider Outr Resulting Lab MICROBIOLOGY - GENERAL ORDERABLES [facility] [address] [place] [address] documented in this encounter Visit Diagnoses Not on filedocumented in this encounter Care Teams Fruit Canner Relationship Specialty Start Date End Date Chapo Pyle MD [address] [facility] [address] [place] [id number] PCP - General 05/26/18 documented as of this encounter
--- OUTSIDE RECORDS SUMMARY | 2024-06-18 16:34 | XMS_ITS | Encounter Summary ---
Author Organization [facility] Address [address] [place] [address] Care Team Providers Care Manager Labor Relations Name Role Phone Chapo Pyle MD Primary Care Provide r Encounter Details Date Type Department Care Team (Late st Contact Info) Description 04/25/2020 Results Only Imaging [facility] Radiology Results [address] [place] [address] Juan Armenta MD [address] [place] [address] [address] [place] [address] Social History Tobacco Use Types [...] Diagnosis Comments MA BREAST SCREENING ABHI BILATERAL 04/25/2020 15:51 EDT documented in this encounter Results * MA BREAST SCREENING ABHI BILATERAL (04/25/2020 15:51 EDT) Anatomical Region Laterality Modality Breast Bilateral Mammography 04/25/2020 15:5 1 EDT Narrative 04/25/2020 15:51 EDT ? EXAM: MAMMOGRAM/MAMMO BILATERAL SCREEN W ??EX. D/ (1130) ? CLINICAL INFORMATION: ? Z12.31 SCREENING; C50.211 DUCTAL CANCER RIGHT ? BREAST S/P LUMPECTOMY, RADIATION ? INDICATION: Z12.31 SCREENING; C50.211 DUCTAL CANCER RIGHT, BREAST S/P ? LUMPECTOMY, RADIATION SCREENING Apr 23 ? COMPARISON: ??Comparison has been made to [...] Category 1 - Negative. Routine ? mammographic ? follow-up is recommended. ? These results will be communicated to your patient via a lay letter ? from Radiology. ??If any additional imaging is needed we will contact ? your patient directly. ? REPORT SIGNED IN OTHER VENDOR SYSTEM 04/25/2020 ?Reported By: Juventino Murphy MD ? CC: ? Transcribed Date/Time: 04/25/2020 (1551) ? Propeller Tester: ? Printed Date/Time: 04/25/2020 (5784) ? PAGE 1 ? Signed Report ? Procedure Note Juventino Murphy MD - 04/25/2020 EXAM: MAMMOGRAM/MAMMO BILATERAL SCREEN W EX. D/ (1130) CLINICAL INFORMATION: Z12.31 SCREENING; C50.211 DUCTAL CANCER RIGHT BREAST S/P LUMPECTOMY, RADIATION INDICATION: Z12.31 SCREENING; C50.211 DUCTAL CANCER RIGHT, BREASTS/P LUMPECTOMY, RADIATION SCREENING Apr 23 COMPARISON: Comparison has been made to previous [...] directly. REPORT SIGNED IN OTHER VENDOR SYSTEM 04/25/2020 Reported By: Juventino Murphy MD CC: Transcribed Date/Time: 04/25/2020 (6870) Propeller Tester: Printed Date/Time: 04/25/2020 (4157) PAGE 1 Signed Report Juan Armenta MD IMG MAMMOGRAPHY O RDERABLES documented in this encounter Visit Diagnoses Not on filedocumented in this encounter Care Teams Manager Labor Relations Relationship Specialty Start Date End Date Chapo Pyle MD [address] [place] [id number] PCP - General 05/26/18 documented as of this encounter
--- OUTSIDE RECORDS SUMMARY | 2024-06-18 16:34 | XMS_ITS ---
Author Organization Unknown Address [address] [place] [phone] Phone Care Team Providers Care Sales Manager Prearranged Funerals Name Role Phone HAKAN PATKELSEY Carr Attending Unavailable TANK Nance Primary Unavailable Social History Type Status Start Date End Date Code Code Syst em Smoking History Never smoker (Never Smoked) [id number] SNOMED CT Sex Female Medications Medication Start Date End Date Route Frequency Dose Code Code System Medication Instructions Home Meds CHEMO PILL 08/05/2018 Unknown ORAL DAILY 1 RxNorm T MARLI 1 ORAL DAILY HYDROmorphone HCl 2MG Oral Tablet 08/05/2018 Unknown ORAL NEEDED THREE TIMES A DAY 2 MILLIGRAMS [id number] RxNorm TAKE 2 MILLIGRAMS ORAL NEEDED THREE TIMES A DAY Magnesium 500 MG Oral Tablet 08/05/2018 Unknown ORAL TWICE A DAY 500 MG 643417 RxNorm TAKE 500 MG ORAL TWICE A DAY Metoprolol Succinate 25MG Oral Tablet, Extended Release 08/05/2018 Unknown ORAL DAILY 25 MILLIGRAMS 641086 RxNorm TAKE 25 MILLIGRAMS ORAL DAILY Omeprazole 20MG Oral Tablet, Delayed Release 08/05/2018 Unknown ORAL DAILY 20 MG RxNorm TAKE 20 MG ORAL DAILY amLODIPine Besylate 5MG Oral Tablet 08/05/2018 Unknown ORAL DAILY 5 MILLIGRAMS 734073 RxNorm TAKE 5 MILLIGRAMS ORAL DAILY traMADol HCl 50MG Oral Tablet 08/05/2018 Unknown ORAL NEEDED DAILY 50 MILLIGRAMS 386703 RxNorm TAKE 50 MILLIGRAMS ORAL NEEDED DAILY [...] Co de Code System ERYTHROMYCIN Itching (SNOMED-CT: 695849778) Moderate Active 4053 RxNorm PERCOCET Nausea/Vomiting (SNOMED-CT: 34064085) Severe Active 72545 RxNorm Plan of Treatment Exposure 11/18/2020 MM SCREEN BILAT 09/05/2023 US ABDOMEN LIMITED 1 ORGAN 07/04/2022 MM SCREEN BILAT 06/15/2022 CT ABDOMEN/PELVIS W/ CONTRAST Encounters Encounter Diagnosis Start Date Code Code Sys tem 05/08/2024 [id number] SNOMED-CT Personal Care Team Section Performer Name Performer Role Active Date Inactive Da te
--- OUTSIDE RECORDS SUMMARY | 2024-06-18 16:34 | XMS_ITS | Encounter Summary ---
Author Organization [facility] Address [address] [place] [address] Care Team Providers Care Older Adult Social Work Specialist Name Role Phone Chapo Pyle MD Primary Care Provide r Reason for Visit * Reason Comments Follow-up 1 year Encounter Details Date Type Department Care Team (Late st Contact Info) Description 08/04/2020 10:00 EST Office Visit [facility] Adult Hematology & Oncology [address] [place] [address] [phone] [place] [address] [facility] [address] [place] [address] (Fax) Malignant neoplasm of upper-inner quadrant of right breast in female, estrogen receptor positive (HCC-CMS) (Primary Dx); 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 30 Tab 2 08/04/2020 11/02/2020 documented in this encounter Progress Notes * Dheeraj Eugene MD - 08/04/2020 1000 EST That second help him that much so she is wondering if he would consider Haldol for the hiccups she said she is only there for a patient Active Problem List Diagnosis ??? Malignant neoplasm of upper-inner quadrant of right breast in female, estrogen receptor positive ([facility]) March 2018: Right breast adenocarcinoma. - 03/27/18: Presented with a self palpated right breast lump, as well as right nipple inversion x afew years. - 03/27/18: Mammogram and right breast US highly suspicious for breast carcinoma in upper outer quadrant of right breast. - 03/31/18: US guided needle core bx. Positive for adenocarcinoma, invasive ductal type, grade II. ER+ (>95%)/MS+ (40-50%), HER-2 negative. - 04/23/18: Lumpectomy and sentinel node bx. - Pathology showed invasive ductal carcinoma. Tumor size 2.1 x 1.7 x 1.4 cm, moderately differentiated with negative margins. 0/2+ lymph nodes. ER positive (>95%), MS positive (40-50%) and HER-2 negative. - 07/08/18: Complete XRT. - 07/2018: Started Arimidex. Subjective Interim History: Patient returns for a follow-up. She is doing generally well today with no new concerns. Hot flashes have eased off. Having them only once in a while. Arthritis is acting up. More in shoulders and arm muscles. Using ice pack releives the symptoms. Sometimes the pain wakes her up in themiddle of night. Using tylenol and ibuprofen as needed. Using one tramadol daily. Review of Systems: Review of Systems Constitutional: [...] Medication Sig Dispense Refill Last Dose ??? acetaminophen (TYLENOL) 500 mg tablet Take 1,000 mg by mouth every 6 hours as needed for Pain. Taking ??? amLODIPine (NORVASC) 2.5 mg tablet Take 2.5 mg by mouth daily. Taking ??? anastrozole (ARIMIDEX) 1 mg tablet Take 1 mg by mouth daily. Taking ??? CALCIUM ACETATE-MAGNESIUM CARB ORAL sliding scale Taking ??? denosumab (PROLIA) 60 mg/mL syringe syringe Inject into the skin. EVERY 6 MONTHS Taking ??? ibuprofen (MOTRIN) 200 mg tablet [...] current facility-administered medications for this visit. Vitals: 08/04/20 0954 BP: (!) 164/82 Pulse: 92 SpO2: 99% Weight: 60.3 kg (133 lb) Wt Readings from Last 3 Encounters: 08/04/20 60.3 kg (133 lb) 08/06/19 61.7 kg (136 lb) 04/09/19 59.9 kg (132 lb) Physical Exam: Physical Exam Constitutional: She is oriented to person, place, and time. HENT: Head: Normocephalic and atraumatic. Eyes: EOM are normal. Neck: Normal range of motion. Neck supple. Cardiovascular: Regular rhythm. Pulmonary/Chest: Effort normal and breath sounds normal. Abdominal: Soft. There is no abdominal tenderness. Neurological: She is alert and oriented to person, place, and time. Skin: Skin is warm and dry. She is not diaphoretic. Breasts: Surgical scar in the upper inner quadrant of the right breast unremarkable. No palpable lumps or skin changes. Left breast is unremarkable. Assessment & Plan 1. Invasive right ductal breast adenocarcinoma. Tumor size 2.1 x 1.7 x 1.4 cm, moderately differentiated with negative margins. Stage pT2, pN0(sn), Grade II, 0/2 lymph node involvement. ER+/MS+/Her-2negative. S/p XRT. Currently on Arimidex. Clinically doing well with no evidence of recurrence. Tolerating Arimidex relatively well except for occasional hot flashes and myalgias/arthralgias which might have slightly worsened after starting this medication. 2. Bone health. 07/2018 bone density scan showed evidence of osteopenia. Continue calcium-Vitamin D3 supplementation. Continue Prolia [id number]. Plan: 1. Continue Arimidex. 2. Continue Prolia every 6 months. 3. Return for follow-up 1 year. Dheeraj Eugene MD Hematology/Oncology [facility] Cc: Dr. Armenta, Dr. Pyle. 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 EVERY 6 MONTHS Duplicate Therapy 08/07/2018 08/04/2020 anastrozole (ARIMIDEX) 1 mg tablet Take 1 mg by mouth daily. Reorder 05/11/2020 08/04/2020 documented as of this encounter Historical Medications * This list may reflect changes made after this encounter. Medication Sig Dispensed Refills Start Date End Date anastrozole (ARIMIDEX) 1 mg tablet Take 1 mg by mouth daily. 05/11/2020 08/04/2020 added in this encounter Care Teams Older Adult Social Work Specialist Relationship Specialty Start Date End Date Chapo Pyle MD [address] [place] [address] [address] [place] [address] PCP - General 05/26/18 documented as of this encounter
--- OUTSIDE RECORDS SUMMARY | 2024-06-18 16:34 | XMS_ITS | Encounter Summary ---
Author Organization [facility] Address [address] [place] [address] Care Team Providers Care Financial Project Manager Name Role Phone Chapo Pyle MD Primary Care Provide r Reason for Visit * Reason Comments Injections Encounter Details Date Type Department Care Team (Late st Contact Info) Description 01/05/2020 9:30 EDT Nurse Only [facility] - [facility] Adult Hematology & Oncology [address] [place] [phone] Nurse, [facility] Malignant neoplasm of upper-inner quadrant of right breast in female, estrogen receptor positive (HCC-CMS) (Primary Dx); Other specified disorders of bone density and structure, multiple sites Social History Tobacco Use Types Packs/Day Years Used Date Smoking Tobacco: Never Smokeless Tobacco: Never Alcohol Use Standard Drinks/Week Comments No 0 (1 standard drink = 0.6 oz pur e alcohol) Sex and Gender Information Value Date Recorded Sex Assigned at Not on file Gender Identity Female 07/25/2021 10:47 EST Sexual Orientation Not on file documented as of this encounter Progress Notes * Nichole Colin RN - 01/05/2020 0930 EDT Consent given by:Self Double verification done Patient response:Tolerated well Supplier:[facility] See OV note dated 08/06/[address] Eugene. Prolia 60mg given left arm SQ, patient tolerated well with no complications. Patinet has f/u scheduled in [address] Eugene. documented in this encounter Plan of Treatment Not on file documented as of this encounter Visit Diagnoses Diagnosis Malignant neoplasm of upper-inner quadrant of right breast in female, estrogen receptor positive (HCC-CMS)- Primary Other specified disorders of bone density and structure, multiple sites documented in this encounter Administered Medications Inactive Administered Medications - up to 3 most recent administrations Medication Order MAR Action Action Date Dose Rate Site denosumab syringe 60 mg 60 mg, subcutaneous, NOW X1, 1 dose, On Sat01/05/20 at 1000, Routine Given 01/05/2020 9:39 EDT 60 mg Left Arm documented in this encounter Care Teams Financial Project Manager Relationship Specialty Start Date End Date Chapo Pyle MD [address] [facility] [address] [place] [address] PCP - General 05/26/18 documented as of this encounter
--- OUTSIDE RECORDS SUMMARY | 2024-06-18 16:34 | XMS_ITS | Encounter Summary ---
Author Organization [facility] Address [address] [place] [address] Care Team Providers Care Customer Quality Engineer Name Role Phone Chapo Pyle MD Primary Care Provide r Reason for Visit * Reason Comments Follow-up 6 months Encounter Details Date Type Department Care Team (Late st Contact Info) Description 08/06/2019 11:00 EST Office Visit [facility] Adult Hematology & Oncology [address] [place] [address] [place] [address] [facility] [address] [place] [address] (Fax) Malignant neoplasm of upper-inner quadrant of right breast in female, estrogen receptor positive (HCC-CMS) (Primary Dx); Encounter for screening mammogram for malignant neoplasm of breast Social History Tobacco Use Types Packs/Day Years [...] Sign Reading Time Taken Comments Blood Pressure 134/66 08/06/2019 1053 EST Pulse 86 08/06/2019 1053 EST Temperature - - Respiratory Rate - - Oxygen Saturation 99% 08/06/2019 1053 EST Inhaled Oxygen Concentration - - Weight 61.7 kg (136 lb) 08/06/2019 1053 EST Height - - Body Mass Index 25.7 04/09/2019 1126 EDT documented in this encounter Ordered Prescriptions Prescription Sig Dispensed Refills Start Date End Da te anastrozole (ARIMIDEX) 1 mg tablet Take 1 Tab by mouth daily for 90 days. 90 Tab 3 08/06/2019 11/04/2019 documented in this encounter Progress Notes * Dheeraj Eugene MD - 08/06/2019 1100 EST Patient Active Problem List Diagnosis ??? Malignant neoplasm of upper-inner quadrant of right breast in female, estrogen receptor positive ([facility]) March 2018: Right breast adenocarcinoma. - 03/27/18: Presented with a self palpated right breast lump, as well as right nipple inversion x afew years. - 03/27/18: Mammogram and right breast US highly suspicious for breast carcinoma in upper outer quadrant of right breast. - 03/31/18: US guided needle core bx. Positive for adenocarcinoma, invasive ductal type, grade II. ER+ (>95%)/HI+ (40-50%), HER-2 negative. - 04/23/18: Lumpectomy and sentinel node bx. - Pathology showed invasive ductal carcinoma. Tumor size 2.1 x 1.7 x 1.4 cm, moderately differentiated with negative margins. 0/2+ lymph nodes. ER positive (>95%), HI positive (40-50%) and HER-2 negative. - 07/08/18: Complete XRT. - 07/2018: Started Arimidex. Subjective Interim History: Patient returns for a follow-up. She is doing generally well today with no new concerns. She continues to have hot flashes, though mentions they are manageable and not as bad as they were before. Notes that acupuncture is helping. Continues to have occasional changes in her mood. States that she was experiencing muscle stiffness and joint aches every morning. Managed this with 600 mg ibuprofen and has since resolved. Endorses being active around the house, though does not exercise. Denies any changes to her medication. Review of Systems: Review of Systems Constitutional: [...] every 6 hours as needed for Pain. Not Taking ??? amLODIPine (NORVASC) 2.5 mg tablet Take 2.5 mg by mouth daily. Taking ??? anastrozole (ARIMIDEX) 1 mg tablet Take 1 Tab by mouth daily for 90 days. 90 Tab 3 ??? CALCIUM ACETATE-MAGNESIUM CARB ORAL sliding scale Taking ??? denosumab (PROLIA) 60 mg/mL syringe syringe Inject into the skin. EVERY 6 MONTHS Taking ??? ibuprofen (MOTRIN) 200 mg tablet Take 200 mg by mouth 2 times daily as needed. Taking ??? Magnesium 250 mg tablet Take 500 mg by mouth daily. Taking ??? metoprolol [...] current facility-administered medications for this visit. Vitals: 08/06/19 1053 BP: 134/66 Pulse: 86 SpO2: 99% Weight: 61.7 kg (136 lb) Wt Readings from Last 3 Encounters: 08/06/19 61.7 kg (136 lb) 04/09/19 59.9 kg (132 lb) 11/10/18 60.8 kg (134 lb) Physical Exam: Physical Exam Constitutional: She is oriented to person, place, and time. HENT: Head: Normocephalic and atraumatic. Eyes: EOM are normal. Neck: Normal range of motion. Neck supple. Cardiovascular: Regular rhythm. Pulmonary/Chest: Effort normal and breath sounds normal. Abdominal: Soft. There is no tenderness. Neurological: She is alert and oriented [...] pN0(sn), Grade II, 0/2 lymph node involvement. ER+/HI+/Her-2negative. S/p XRT. Started Arimidex 07/2018. Tolerating relatively well other than experiencing mild hot flashes, moodchanges and problems with anger. 2. Bone health. 07/2018 bone density scan showed evidence of osteopenia. Continue calcium-Vitamin D3 supplementation. Continue Prolia [id number]. Plan: 1. Continue Arimidex. 2. Continue Prolia every 6 months. 3. Return for follow-up 1 year. Dheeraj Eugene MD Hematology/Oncology [facility] Cc: Dr. Armenta, Dr. Pyle. Scribe attestation: By time stamping my name below, I attest that this documentation has been prepared under the direction and in the presence of the provider listed as the provider on this encounter, Fani Chago 08/10/19 9:33 * Renata Richards MA - 08/06/2019 1100 EST Suspicion of Abuse: no - If yes, please document evidence: - Assessed on: 08/06/19 10:59 - Assessed by: RENATA RICHARDS MA documented in this encounter Plan of Treatment Not on file documented as of this encounter Visit Diagnoses Diagnosis Malignant neoplasm of upper-inner quadrant of right breast in female, estrogen receptor positive (HCC-CMS)- Primary Encounter for screening mammogram for malignant neoplasm of breast Other screening mammogram documented in this encounter Administered Medications Inactive Administered Medications - up to 3 most recent administrations Medication Order MAR Action Action Date Dose Rate Site denosumab syringe 60 mg 60 mg, subcutaneous, NOW X1, 1 dose, On Michaela 08/06/19 at 1145, Routine Given 08/06/2019 12:54 EST 60 mg Left Ar m documented in this encounter Discontinued Medications Medication Sig Discontinue Reason Start Date End Da te metoprolol (LOPRESSOR) 25 mg tablet Take 12.5 mg by mouth 2 times daily. Alternate therapy 08/06/2019 omeprazole (PRILOSEC) 10 mg capsule Take 10 mg by mouth daily. Dose adjustment 08/06/2019 Water liquid 150 mL with magnesium hydroxide 400 mg/5 mL suspension 400 mg, diphenhydrAMINE 12.5 mg/5 mL elixir 60 mg, nystatin 100,000 unit/mL suspension 500,000 Units Take by mouth 3 times daily as needed. Therapy completed 08/07/2018 08/06/2019 anastrozole (ARIMIDEX) 1 mg tablet Take 1 mg by mouth daily. Reorder 08/06/2019 documented as of this encounter Historical Medications * This list may reflect changes made after this encounter. Medication Sig Dispensed Refills Start Date End Date CALCIUM ACETATE-MAGNESIUM CARB ORAL sliding scale ibuprofen (MOTRIN) 200 mg tablet Take 200 mg by mouth 2 times daily as needed. metoprolol XL (TOPROL-XL) 25 mg tablet Take 25 mg by mouth daily. Water liquid 150 mL with magnesium hydroxide 400 mg/5 mL suspension 400 mg, diphenhydrAMINE 12.5 mg/5 mL elixir 60 mg, nystatin 100,000 unit/mL suspension 500,000 Units Take by mouth 3 times daily as needed. 08/07/2018 08/06/2019 denosumab (PROLIA) 60 mg/mL syringe syringe Inject into the skin. EVERY 6 MONTHS 08/07/2018 08/04/2020 omeprazole (PRILOSEC) 10 mg capsule Take 10 mg by mouth daily. 08/06/2019 added in this encounter Care Teams Customer Quality Engineer Relationship Specialty Start Date End Date Chapo Pyle MD [address] [address] PCP - General 05/26/18 documented as of this encounter
--- OUTSIDE RECORDS SUMMARY | 2024-06-18 16:35 | XMS_ITS | Encounter Summary ---
Author Organization [facility] Address [address] [place] [address] Care Team Providers Care Rug Weaver Name Role Phone VenusMaribel catherine Juaquin BRUSH Primary Care Provider Vinh Pyle MD Primary Care Provide r Encounter Details Date Type Department Care Team (Late st Contact Info) Description 04/23/2018 Historical Results Only [facility] Radiology Results [address], [place] [id number] Yajaira Kinsey MD [address] [place] [address] [address] [place] [address] Social History Tobacco Use Types Packs/Day Years [...] Priority Date/Time Associated Diagnosis Comments MA BREAST SPECIMEN 04/23/2018 11 :32 EDT SURGICAL PATHOLOGY Routine 04/23/2018 documented in this encounter Results * MA BREAST SPECIMEN (04/23/2018 11:32 EDT) Anatomical Region Laterality Modality Breast Other 04/23/2018 11:3 2 EDT Narrative 04/23/2018 11:33 EDT ? EXAM: MAMMOGRAM/DIGITAL MAMMO BREAST SPEC EX. D/ (1031) ? CLINICAL INFORMATION: ? RIGHT BREAST LUMPECTOMY AND SENTINEL NODE BIOPSY ? INDICATION: ??RIGHT BREAST LUMPECTOMY AND SENTINEL NODE BIOPSY RIGHT ? BREAST LUMPECTOMY SENTINEL LYMPH NODE BIOPSY ? TECHNIQUE: ??Single image biopsy sample. ? FINDINGS: Small metallic clip is seen within the sample. There is a ? masslike appearance within the central portion of the biopsy sample. ? FINAL ASSESSMENT: ??RIGHT BREAST - Category 0 - Post procedure ? mammogram for marker placement. ? These results will be communicated to your patient via a lay letter ? from Radiology. ??If any additional imaging is needed we will contact ? your patient directly. ? REPORT SIGNED IN OTHER VENDOR SYSTEM 04/23/2018 ?Reported By: Praful Stanton MD ? CC: Yajaira Kinsey MD ? Transcribed Date/Time: 04/23/2018 (1133) ? Decommissioning Well Site Manager: ? Printed Date/Time: 02/21/2019 (1239) ? PAGE 1 ? Signed Report ? Procedure Note Praful Stanton MD - 07/09/2019 EXAM: MAMMOGRAM/DIGITAL MAMMO BREAST SPEC EX. D/ (1031) CLINICAL INFORMATION: RIGHT BREAST LUMPECTOMY AND SENTINEL NODE BIOPSY INDICATION: RIGHT BREAST LUMPECTOMY AND SENTINEL NODE BIOPSY RIGHT BREAST LUMPECTOMY SENTINEL LYMPH NODE BIOPSY TECHNIQUE: Single image biopsy sample. FINDINGS: Small metallic clip is seen within the sample. There is a masslike appearance within the central portion of the biopsysample. FINAL ASSESSMENT: RIGHT BREAST - Category 0 - Post procedure mammogram for marker placement. These results will be communicated to your patient via a lay letter from Radiology. If any additional imaging is needed we willcontact your patient directly. REPORT SIGNED IN OTHER VENDOR SYSTEM 04/23/2018 Reported By: Praful Stanton MD CC: Yajaira Kinsey MD Transcribed Date/Time: 04/23/2018 (9671) Decommissioning Well Site Manager: Printed Date/Time: 02/21/2019 (7410) PAGE 1 Signed Report Yajaira Kinsey MD IMG MAMMOGRAPH Y ORDERABLES * SURGICAL PATHOLOGY (04/23/2018) 04/23/2018 04/23/2018 10: 48 EDT Narrative [facility] - 04/25/2018 12:19 EDT ----- ------- Name: DEANNA FOOTE ?: [birth year] ?Age/Sex: 73/F ?Unit#: [id number] ? Loc: SDS ? Status: DEP [facility] ?? Reg Date: 04/23/18 ? Pt.Phone Number: ? ----- ------- Specimen: [id number] ? STATUS: SOUT ?Spec Date:04/23/18 ? Physician Copies: ?Yajaira Kinsey [place] Tissues: A ?? Breast Biopsy (RIGHT) ?Vinh Pyle ? B ?? Lymph node, sentinel (RIGHT #1) ? C ?? Lymph node, sentinel (RIGHT #2) ? CPT: 42046 ?? Units: ??3 ?SYNOPTIC REPORT ? INVASIVE CARCINOMA OF THE BREAST - CAP CASE SUMMARY ? Procedure: ?Excision with ultrasound guidance ? Lymph Node Sampling: ?[place] lymph nodes (2) ? Specimen Laterality: ?RIGHT ? Tumor Site: ? Upper inner quadrant ? Tumor Size: ? 2.1 x 1.7 x 1.4 cm ? Histologic Type: ?Invasive ductal carcinoma ? Juan Jose Histologic Score: ??6 (tubules: 3 / nuclei: 2 / mitoses: 1) ? Histologic Grade: ? Moderately differentiated (grade 2) ? DCIS: ? DCIS is present ? Extent of DCIS: ? Minor component (less than 10% of total tumor) ? Pattern of DCIS: ?Solid with focal central necrosis ? Nuclear Grade: ?Intermediate nuclear grade (II) ? Microcalcifications: ?Present in carcinoma and in blood vessel wesley ? Lymph-Vasc Invasion: ?Not identified ? Perineural Invasion: ?Not identified ? Skin Involvement: ? Not identified ? Margins: ? Invasive Margin: ?Margins uninvolved by invasive carcinoma ?Closest: ? Inferior 0.5-mm / Superior- Anterior 2-mm ? Remaining margins at least 1 centimeter ? DCIS Margin: ?Margins uninvolved by DCIS ?Closest: ? Medial-Superior 8-mm ? Remaining margins at least 1 centimeter ? Treatment Effect: ? No known presurgical therapy ? Lymph Nodes: ?Total # of Nodes: 2 ? # [place] Nodes: 2 ? # Positive Nodes: 0 ? ER/AK: ?ER Positive (>95%) / AK Positive (40-50%) ? Her2: ? IHC: Negative (Her2 Score: 1+/negative) ? Pathologic Staging: ? pT2 pN0(sn) ----- ------- Patient: DEANNA FOOTE ?#[id number] ? (Continued) ----- ------- Specimen: [id number] ? Received: 04/23/18-8 ?(Continued) ?FINAL DIAGNOSIS ? A. BREAST, RIGHT, UPPER INNER QUADRANT, LUMPECTOMY; ? - Adenocarcinoma, invasive, ductal type. ?- Juan Jose combined histologic score: 6 (moderately differentiated). ? - Tubules: 3 ? - Nuclei: 2. ? - Mitoses: 1. ?- Maximum tumor dimension: 2.1 x 1.7 x 1.4 cm (AJCC: pT2). ?- Resection margin negative for invasive carcinoma. ? - Closest margins: ?- Inferior 0.5-mm. ? - Superior-Anterior 2-mm. ? - Remaining margins greater than 1 centimeter. ? - Ductal carcinoma in situ (DCIS). ?- Minor component of DCIS adjacent to invasive tumor. ?- Solid pattern with focal central necrosis, intermediate nuclear grade. ?- Resection margin negative for DCIS. ? - Closest margin: ? - Medial-Superior 8-mm. ? - Remaining margins greater than 1 centimeter. ? - Additional findings include: ?- Previous biopsy cavity found within invasive tumor. ?- Skin: Negative for tumor involvement. ?- Fibrocystic changes: Duct ectasia, microcysts, stromal fibrosis. ?- Microcalcifications associated with carcinoma and present within blood ?vessel wesley. ? B. SENTINEL NODE #1, RIGHT AXILLA, EXCISIONAL BIOPSY; ? - One lymph node negative for metastatic carcinoma (0/1). ? C. SENTINEL NODE #2, RIGHT AXILLA, EXCISIONAL BIOPSY; ? - One lymph node negative for metastatic carcinoma (0/1). ? SEE SYNOPTIC FOR CAP CANCER CASE SUMMARY ? GROSS DESCRIPTION ? A. ??Received on a radiology grid unfixed labeled Right breast is an ovoid ? portion of yellow-carrillo fibrofatty tissue with the following attached orienting ? sutures: double black short = medial, double black long = lateral, single ? black = superior. ??An ellipse of skin is present on the anterior aspect. ??The ? associated radiograph indicates the presence of a mass and clip within the ? specimen. ??The specimen measures 7.3 cm medial-lateral x 5.0 cm superior- ----- ------- Patient: DEANNA FOOTE ?#[id number] ? (Continued) ----- ------- Specimen: [id number] ? Received: 04/23/18 ?(Continued) ? GROSS DESCRIPTION ?(Continued) ? inferior x 5.2 cm anterior-deep. ??Ink is applied as follows: yellow- lateral, ? red-medial, green-inferior, blue-superior, black-deep; anterior is designated ? by skin. ??Sectioning demonstrates a solid, carrillo mass with distinct lobulated ? border present within the lumpectomy. ??The tumor measures 2.1 x 1.7 x 1.4 cm. ? Gross margins are negative and measure as follows: inferior 6 mm, superior 6 ? mm, deep 9 mm. ??Remaining margins are greater than 1 cm away from tumor. ??The ? biopsy cavity is identified within the tumor and includes the previously placed ? metal clip. ??Uninvolved breast parenchyma is predominantly fatty; there is ? focal fatty consolidation at the medial margin of level 1. ??No other lesions ? are found. ??Slicing Machine Operator/Tender sections submitted as follows: ? A1: ? Level 1, medial skin apex, perpendicular section. ? A2-3: ? Level 1, medial margin consolidation, perpendicular sections. ? A4-5: ? Level 2, tumor with closest superior and inferior margins. ? A6: ? Level 2, overlying skin including superior and inferior edges. ? A7-8: ? Level 3, tumor with closest superior and inferior margins. ? A9-11: ?Level 4, tumor with closest superior, inferior and deep margins. ? A12: ?Level 5, lateral skin apex, perpendicular section. ? A13: ?Level 5, lateral margin, perpendicular section. ? B. ??Received in formalin labeled with the patient's name and [place] node #1 ? is a carrillo lymph node surrounded by a bit of fatty tissue with an overall ? measurement of 1.0 x 0.7 x 0.5 cm, bisected. es 1 ? C. ??Received in formalin labeled with the patient's name and [place] node #2 ? is a carrillo lymph node with a bit of surrounding fatty tissue measuring 1.2 x 0.8 ? x 0.5 cm, bisected. ??es 1 CP ?? PREOP DX/CLINICAL HISTORY ?Right breast cancer. Signed ____(signature on file)____ Anne Purcell M.D. 04/25/18 By the signature above, the attending physician certifies that he/she has personally conducted a gross and/or microscopic examination of the described specimens and rendered or confirmed the above diagnosis. Test Performed by [facility], [address] [place] [id number] Insurance Follow Up Specialist: Anne Purcell MD PHD ----- ------- Yajaira Kinsey MD PATHOLOGY [facility] [place] [facility] documented in this encounter Visit Diagnoses Not on filedocumented in this encounter Care Teams Rug Weaver Relationship Specialty Start Date End Date Maribel Donovan APRN [address] [place] [address] PCP - General 03/28/18 05/25/18 Vinh Pyle MD [address] [address] PCP - General 05/26/18 documented as of this encounter
--- OUTSIDE RECORDS SUMMARY | 2024-06-18 16:35 | XMS_ITS | Encounter Summary ---
Author Organization [facility] Address [address] [place] [address] Care Team Providers Care Advertising Agency Manager Name Role Phone Chapo Pyle MD Primary Care Provide r Encounter Details Date Type Department Care Team (Late st Contact Info) Description 08/07/2018 Historical Results Only [facility] - Main [address] [id number] [place] [id number] [facility] [address] [place] [address] (Fax) Social History Tobacco Use Types Packs/Day Years [...] Procedure Name Priority Date/Time Associated Diagnosis Comments CALCIUM Routine 08/07/2018 14:49 EST documented in this encounter Results * CALCIUM (08/07/2018 14:49 EST) [facility] 9.0 8.5 - 10.5 mg/dL 08/07/2018 16:47 EST [facility] 08/07/2018 14:4 9 EST 08/07/2018 15:18 EST Dheeraj Eugene MD CHEMISTRY & BLOOD GA S ORDERABLES [facility] documented in this encounter Visit Diagnoses Not on filedocumented in this encounter Care Teams Advertising Agency Manager Relationship Specialty Start Date End Date Chapo Pyle MD [address] [facility] [address] [place] [address] PCP - General 05/26/18 documented as of this encounter
--- OUTSIDE RECORDS SUMMARY | 2024-06-18 16:35 | XMS_ITS | Encounter Summary ---
Author Organization [facility] Address [address] [place] [address] Care Team Providers Care Asparagus Cutter Name Role Phone Maribel Donovan APRN Primary Care Provider Reason for Visit * Reason Comments Abnormal Radiology Findings * Consult (Urgent) - Closed Specialty Diagnoses / Procedures Referred By Alannah ford Referred To Contact General Surgery Diagnoses Unspecified lump in unspecified breast Maribel Donovan APRN [address] [place] [address] [facility] [address] [place] [id number] Referral ID Status Reason Start Date Expiration Date Visits Re quested Visits Authorized [id number] Closed 1 1 Encounter Details Date Type Department Care Team (Late st Contact Info) Description 03/31/2018 14:45 EDT Office Visit [facility] General Surgery [address] [address] Yajaira Kinsey MD [address] [place] [phone] Breast mass, right (Primary Dx) Social History Tobacco Use Types [...] Sign Reading Time Taken Comments Blood Pressure 163/85 03/31/2018 1428 EDT Pulse 63 03/31/2018 1428 EDT Temperature - - Respiratory Rate - - Oxygen Saturation - - Inhaled Oxygen Concentration - - Weight 61.2 kg (135 lb) 03/31/2018 1428 EDT Height 154.9 cm (5' 1) 03/31/2018 1428 EDT Body Mass Index 25.51 03/31/2018 1428 EDT documented in this encounter Progress Notes * Yajaira Kinsey MD - 03/31/2018 1445 EDT [facility] HISTORY AND PHYSICAL EXAMINATION Date of Service: 03/31/2018 PROBLEM: Chief Complaint Patient presents with ??? Abnormal Radiology Findings SUBJECTIVE: Ms. Deanna Isabel is a 72 y.o. female, presenting with a right breast mass. She reports being in her usual state of health until 3 weeks ago when she was reading in bed and felt a lump in her right breast. She denies any fevers/chills, night sweats, weight loss or weight gain, no nipple drainage or skin changes. In retrospect she does note that for the last few years her right nipple has looked slightly pulled in compared with her left nipple. She states she last had a mammogram performed in 1996 at which time, as she describes it, a cyst-like lesion was noted on her left side and needle used to decompress. She recalls being told she did not need further mammograms and only needed annual breast exams. She has had multiple cousins on both sides of the family who have had breast cancer, a maternal grandmother who of stomach cancer and maternal aunt and uncle who both had either leukemia or lymphoma. She took hormone replacement therapy around menopause for about 1.5 years (this was about 23 years ago) and she had taken OCPs in the past for a short time after her third child was born but states she did not tolerate them and her had a vasectomy. 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 She denies any rashes in these areas consistent with shingles and alsohas to take tramadol for the pain. PROBLEM LIST: does not have a problem list on file. Past Medical History: Diagnosis Date [...] Other cousins on both side Current Outpatient Prescriptions: acetaminophen (TYLENOL) 500 mg tablet amLODIPine (NORVASC) [...] Musculoskeletal Myalgia;Joint pain PHYSICAL EXAM: BP (!) 163/85 Pulse 63 Ht 154.9 cm (61) Wt 61.2 kg (135 lb) BMI 25.51 kg/m2 General appearance: alert, cooperative, no distress Skin: Skin color, temperature, turgor normal. Head: Normocephalic, without obvious abnormality, atraumatic Neck: supple, symmetrical, trachea midline and no adenopathy Lymph nodes: Cervical, supraclavicular, and axillary nodes normal. Lungs: non labored breathing Heart: regular rate and rhythm Abdomen: soft, non-tender; bowel sounds normal; no masses, no organomegaly Breasts: Mild asymmetry, slight dimpling of both nipples R>L, wart-like lesion on sternum; palpable firm nodule on upper inner quadrant of right breast in the 2 o'clock position about 2 cm from nipple ASSESSMENT: 72 year old female with new palpable right breast mass with reports from her recent mammogram and ultrasound performed at [facility] concerning for malignancy. Unfortunately her she does not have her images with her and these will need to be reviewed in addition to the reports. 1. Breast mass, right SURGICAL PATHOLOGY- ORDER ONLY PLAN: Bedside ultrasound with US-guided core needle biopsy (see separate procedure note) Schedule follow-up appointment with Dr. Kinsey for next to review pathology findings Inderjit Figueroa MD 03/31/2018 Attestation statement: I saw and examined the patient with the resident/fellow. I agree with the findings and plan of care documented in the resident's/fellow's note. The patient's US likely represents a malignancy. Proceed with biopsy today but I will also need the patient to sign a release so I can obtain her Mammogram and US images. Yajaira Kinsey MD documented in this encounter Procedure Notes * Yajaira Kinsey MD - 03/31/2018 1445 EDT Images from the original note were not included. CORE NEEDLE BIOPSY PROCEDURE: The patient was in the supine position and the right breast was cleansed with betadine. The US was used to locate the lesion in the upper inner quadrant utilizing a 12 MHz probe. The skin was anesthetized with 1% lidocaine. A small incision was made in the breast with an 11 blade. A 14 gauge core needle biopsy was used to obtain 3 samples with US guidance. A small metal clip/marker was deployed in the biopsy cavity with US guidance. Pressure was held over the incision site to achieve hemostasis. Steri strips,guaze and Tegaderm dressing covered the incision. The patient tolerated the well. She was given wound care instructions and will be notified of the biopsy results when available. documented in this encounter Plan of Treatment Scheduled Orders Name Type Priority Associated Diagnoses Orde r Schedule SURGICAL PATHOLOGY- ORDER ONLY Pathology Routine Breast mass, right Ordered: 03/31/2018 documented as of this encounter Visit Diagnoses Diagnosis Breast mass, right- Primary Lump or mass in breast documented in this encounter Historical Medications * This list may reflect changes made after this encounter. Medication Sig Dispensed Refills Start Date End Date Magnesium 250 mg tablet Take 250 mg by mouth daily. acetaminophen (TYLENOL) 500 mg tablet Take 1,000 mg by mouth every 6 hours as needed for Pain. 09/05/2021 added in this encounter Care Teams Asparagus Cutter Relationship Specialty Start Date End Date Maribel Donovan APRN [address] [place] [id number] PCP - General 03/28/18 05/25/18 documented as of this encounter
--- OUTSIDE RECORDS SUMMARY | 2024-06-18 16:35 | XMS_ITS | Encounter Summary ---
Author Organization [facility] Address [address] [place] [address] Care Team Providers Care Plow Mechanic Name Role Phone Chapo Pyle MD Primary Care Provide r Reason for Visit * Reason Comments Post-OP Follow Up Encounter Details Date Type Department Care Team (Late st Contact Info) Description 05/26/2018 13:00 EDT Office Visit [facility] General Surgery - [place] [address] [address] Yajaira Kinsey MD [address] [phone] Malignant neoplasm of central portion of right breast in female, estrogen receptor positive (HCC-CMS) (Primary Dx); Changing skin lesion Social History Tobacco Use Types Packs/Day Years [...] Sign Reading Time Taken Comments Blood Pressure 139/73 05/26/2018 1306 EDT Pulse 69 05/26/2018 1306 EDT Temperature - - Respiratory Rate - - Oxygen Saturation - - Inhaled Oxygen Concentration - - Weight - - Height - - Body Mass Index - - documented in this encounter Progress Notes * Yajaira Kinsey MD - 05/26/2018 1300 EDT PROBLEM: Follow up for right breast cancer. SUBJECTIVE: Ms Isabel returns today for another evaluation. She had a T2, N0, M0, ER/DC positive, HER-2 negative, right breast cancer. She reports no concerns. She has seen Dr Eugene and there is decision hold on any chemotherapy. However, she will undergo hormonal therapy. She is scheduled to se aris alanis of radiation oncology to discuss radiation. On physical exam, her incision site is healing well. She has a mild seroma which is markedly improved. However, in the middle of her chest above the sternum is a 3 x 4 mm lesion, that has a waxy appearance. She has been applying some wart remover to see if this goes away. She states this has been more prominent. I did not appreciate this lesion on previous examinations. ASSESSMENT: Excellent recovery after right breast lumpectomy and sentinel lymph node biopsy for right breast cancer (T2, N0, M0, ER/DC positive, HER-2 negative, invasive ductal carcinoma), however, the patient may have a basal cell of her skin. PLAN: 1. First, I reviewed with the patient the plan for followup. When she completes radiation and then starts tamoxifen, I would like to see the patient in roughly 6 months. 2. In regards to the skin lesion, this can be observed. However, I would rather remove this and biopsy prior to her starting radiation and she is in agreement. Please refer to our procedure note. ELLIPTICAL EXCISION PATIENT INFORMATION: Deanna Isabel Female, currently 72 y.o. REFERRING PROVIDER: [place] [address] SURGEON: Yajaira Kinsey MD LINE UP MACHINE OPERATOR: none LOCATION: middle chest/ sternum PREOPERATIVE DIAGNOSIS: Suspicious lesion LESION SIZE: 0.3x0.4 cm MARGIN PER SIDE: 0.1 cm TOTAL EXCISION DIAMETER: 0.8x0.5 cm INDICATIONS: The indication, risks, benefits and alternatives to this procedure were discussed in detail with the patient and all questions were answered. The patient had no contraindications to surgery with local anesthesia. Informed consent was obtained verbally and site and laterality confirmed. PROCEDURE: Patient position: supine Anesthesia: 1% lidocaine plain local infiltration Prep: Povodine Iodine The patient was brought to the procedure room. The lesion was identified, prepped and draped in theusual sterile fashion. Following injection of anesthetic, the skin was incised in an elliptical fashion level to the subcutaneous fat with a number 15 surgical blade. The wound was undermined in all directions with care to avoid functionally important nerves and vessels. Hemostasis was achieved without spot electrocoagulation. The wound was closed with 4-0 Monocryl using simple interrupted stitches. The final wound length was 0.8 centimeters and width 0.5 centimeters. The wound edges were cleansed and a sterile pressure dressing applied. Verbal and written wound care instructions were given. The patient tolerated the procedure well and left in excellent condition. The surgical specimen was submitted to pathology for histologic evaluation. POSTOPERATIVE DIAGNOSIS: The same. FINAL PROCEDURE: Excision and Linear Repair; with 1 layer closure. BLOOD LOSS: minimal COMPLICATIONS: None NOTE: Wound care discussed with the patient documented in this encounter Plan of Treatment Scheduled Orders Name Type Priority Associated Diagnoses Orde r Schedule SURGICAL PATHOLOGY- ORDER ONLY Pathology Routine Changing skin lesion Ordered: 05/26/2018 documented as of this encounter Visit Diagnoses Diagnosis Malignant neoplasm of central portion of right breast in female, estrogen receptor positive (HCC-CMS)- Primary Changing skin lesion Unspecified disorder of skin and subcutaneous tissue documented in this encounter Care Teams Plow Mechanic Relationship Specialty Start Date End Date Chapo Pyle MD [address] [place] [id number] PCP - General 05/26/18 documented as of this encounter
--- OUTSIDE RECORDS SUMMARY | 2024-06-18 16:35 | XMS_ITS | Encounter Summary ---
Author Organization [facility] Address [address] [place] [address] Care Team Providers Care Strand And Binder Controller Name Role Phone VenusMaribel catherine Juaquin BRUSH Primary Care Provider [phone] Vinh Pyle MD Primary Care Provide r Encounter Details Date Type Department Care Team (Late st Contact Info) Description 03/31/2018 Historical Results Only [facility] Lab - Main [place] [address] [place] [address] Yajaira Kinsey MD [address] [place] [address] [phone] Social History Tobacco Use Types Packs/Day Years [...] Procedure Name Priority Date/Time Associated Diagnosis Comments [facility] SURGICAL PATH [facility] Routine 03/31/2018 8:08 EDT SURGICAL PATHOLOGY Routine 03/31/2018 documented in this encounter Results * [facility] (03/31/2018 8:08 EDT) [facility] Results Below () 04/08/2018 15:05 EDT [facility] Comment: SURGICAL PATHOLOGY REPORT ? 1) Reports generated via electronic interface contain original data; however they are lacking the format of the original report. Caution should be taken when reading/interpreting unformatted reports. 2) ??Please reference the paper report if the text (End of Report) is not displayed. Name: ? JAMES FOOTE ? Accession #: ? [id number] : ? 1945 (Age: 72) ??F ? Location: ? [facility] ? Receive Date: ? 04/04/2018 ? Provider: MIREILLE LAMB MD ? Copy to: YAJAIRA KINSEY MD ? MARIBEL PYLE MD Clinical History: Her 2 IMMUNOPEROXIDASE REPORT ? Date Ordered: ? 04/04/2018 ? Status: ?? Signed Out ?Date Complete: ? 04/04/2018 ? By: ??Katt Duenas ? Date Reported: ? 04/07/2018 ? Interpretation ASSAY RESULTS Her2 SCORE: 1+ TUMOR LOCATION: Right breast, 1 o'clock COLD ISCHEMIC TIME AND TOTAL FORMALIN FIXATIVE TIME APPROPRIATE: Yes CELLS WITH COMPLETE MEMBRANE STAINING: None MEMBRANE STAINING INTENSITY: N/A PARTIAL MEMBRANE STAINING: Present in 20% of cells CYTOPLASMIC STAINING: Absent STAINING PATTERN: Homogeneous STAINING IN BENIGN EPITHELIUM: N/A THE HER2 ASSAY PERFORMED IS INTERPRETED NEGATIVE. Description Tissue submitted: Paraffin embedded tissue block labelled [id number] from [facility] Clinical History: Adenocarcinoma, invasive; right breast Fixative: Formalin (This immunohistochemical assay is intended for paraffin-embedded tissue fixed in 10% neutral buffered formalin for 6-72 hours; 18-24 hours with maximum tissue thickness of 3-4 millimeters is recommended for best assay performance. Her2 should not be performed on alcohol fixed tissues.) The assay was performed under appropriate conditions according to the piccolo mechanic's instructions with appropriate assay and tissue controls using an Anti-Her2 (4B5) Rabbit Monoclonal Antibody ([employer]). ? Her2 IHC Scoring Guidelines (invasive tumor component only) 0 negative No staining or membrane staining in less than 10% of cells 1+ negative Faint partial membrane staining in more than 10% of cells 2+ weakly positive Moderate complete membrane staining in more than 10% of cells 3+ positive Strong complete membrane staining in more than 10% of cells Reference: ??ASCO-CAP Recommendations for Her2 Testing. J Clin Oncol 2013; epub (www.jco.org Jun 08, 2013) NOTE: ??One or more of the reagents used in immunoperoxidase testing in this case may not have been cleared or approved by the U.S. Food and Drug Administration (FDA). The FDA has determined that such clearance or approval is not necessary. These tests are used for clinical purposes. They should not be regarded as investigational or for research. These reagents' performance characteristics have been determined by [facility] and/or by the referring laboratory. The positive and negative controls worked appropriately. If immunoperoxidase staining has been performed on alcohol fixed cytology specimens, which has not been fully validated, the assays should be interpreted with caution and correlated with clinical data. This laboratory is certified under the Clinical Laboratory Improvement Amendments of 1988 (CLIA-88) as qualified to perform high complexity clinical laboratory testing. Document reviewed and electronically signed by: ? MARIA G MILLER MD ? Report date: 04/07/2018 ? By the signature above, the attending physician certifies that he/she has personally conducted a gross and/or microscopic examination of the described specimens and rendered or confirmed the above diagnosis. End of Report ? Test Performed by: [place] [address] A PATHOLOGY PROCEDURE HAS BEEN ORDERED FOR THE FOLLOWING PATIENT. ? A REPORT WILL FOLLOW WHEN THE PROCEDURE IS COMPLETED. ? Disclaimers: 1) ??Reports generated via electronic interface contain original data; ? however they are lacking the format of the original report. ? Caution should be taken when reading/interpreting unformatted reports. 2) ??Please reference the paper report if the text (End of Report) is not displayed. Name: ? JAMES FOOTE ? Accession #: ? [id number] ? : ? 1945 (Age: 72) ??F ? Location: ? [facility] ? Receive Date: ? 04/04/2018 ? Provider: MIREILLE LAMB MD ? Copy to: YAJAIRA KINSEY MD ? MARIBEL PYEL MD End of Report ? Test Performed by: [place] [address] SURGICAL PATHOLOGY REPORT ? 1) Reports generated via electronic interface contain original data; however they are lacking the format of the original report. Caution should be taken when reading/interpreting unformatted reports. 2) ??Please reference the paper report if the text (End of Report) is not displayed. Name: ? JAMES FOOTE ? Accession #: ? [id number] ? : ? 1945 (Age: 72) ??F ? Location: ? V ? Receive Date: ? 04/04/2018 ? Provider: MIREILLE LAMB MD ? Copy to: YAJAIRA KINSEY MD ? MARIBEL PYLE MD Clinical History: Her 2 IMMUNOPEROXIDASE REPORT ? Date Ordered: ? 04/04/2018 ? Status: ?? Signed Out ?Date Complete: ? 04/04/2018 ? By: ??Katt Duenas ? Date Reported: ? 04/07/2018 ? Interpretation ASSAY RESULTS Her2 SCORE: 1+ TUMOR LOCATION: Right breast, 1 o'clock COLD ISCHEMIC TIME AND TOTAL FORMALIN FIXATIVE TIME APPROPRIATE: Yes CELLS WITH COMPLETE MEMBRANE STAINING: None MEMBRANE STAINING INTENSITY: N/A PARTIAL MEMBRANE STAINING: Present in 20% of cells CYTOPLASMIC STAINING: Absent STAINING PATTERN: Homogeneous STAINING IN BENIGN EPITHELIUM: N/A THE HER2 ASSAY PERFORMED IS INTERPRETED NEGATIVE. Description Tissue submitted: Paraffin embedded tissue block labelled [id number] from [facility] ? [facility] Clinical History: Adenocarcinoma, invasive; right breast Fixative: Formalin (This immunohistochemical assay is intended for paraffin-embedded tissue fixed in 10% neutral buffered formalin for 6-72 hours; 18-24 hours with maximum tissue thickness of 3-4 millimeters is recommended for best assay performance. Her2 should not be performed on alcohol fixed tissues.) The assay was performed under appropriate conditions according to the piccolo mechanic's instructions with appropriate assay and tissue controls using an Anti-Her2 (4B5) Rabbit Monoclonal Antibody ([place]). ? Her2 IHC Scoring Guidelines (invasive tumor component only) 0 negative No staining or membrane staining in less than 10% of cells 1+ negative Faint partial membrane staining in more than 10% of cells 2+ weakly positive Moderate complete membrane staining in more than 10% of cells 3+ positive Strong complete membrane staining in more than 10% of cells Reference: ??ASCO-CAP Recommendations for Her2 Testing. J Clin Oncol 2013; epub ?? (www.jco.org Jun 08, 2013) NOTE: ??One or more of the reagents used in immunoperoxidase testing in this ? case may not have been cleared or approved by the U.S. Food and Drug Administration (FDA). The FDA has determined that such clearance or approval is not necessary. These tests are used for clinical purposes. They should not be regarded as investigational or for research. These reagents' performance characteristics have been determined by [facility] and/or by the referring laboratory. The positive and negative controls worked appropriately. If immunoperoxidase staining has been performed on alcohol fixed cytology specimens, which has not been fully validated, the assays should be interpreted with caution and correlated with clinical data. This laboratory is certified under the Clinical Laboratory Improvement Amendments of 1988 (CLIA-88) as qualified to perform high complexity clinical laboratory testing. Document reviewed and electronically signed by: ? MARIA G MILLER MD ? Report date: 04/07/2018 ? By the signature above, the attending physician certifies that he/she has personally conducted a gross and/or microscopic examination of the described specimens and rendered or confirmed the above diagnosis. End of Report ? Test Performed by: THE [address] [address] 03/31/2018 8:08 EDT 04/04/2018 8:08 EDT [facility] - 04/08/2018 15:05 EDT [id number] SENT FOR HER2 TESTING Yajaira Kinsey MD CHEMISTRY & BL OOD GAS ORDERABLES [facility] * SURGICAL PATHOLOGY (03/31/2018) 03/31/2018 04/01/2018 9:4 6 EDT [facility] - 04/03/2018 14:58 EDT ----- ------- Name: JAMES FOOTE ?: [birth year] ?Age/Sex: 73/F ?Unit#: [id number] ? Loc: LAB.OPX ? Status: REG REF ?? Reg Date: 03/31/18 ? Pt.Phone Number: ? ----- ------- Specimen: [id number] ? STATUS: SOUT ?Spec Date:03/31/18 ? Physician Copies: ?Yajaira Kinsey [place] Tissues: A ?? Breast Needle (RIGHT @ 1 O'CLOCK) ?Maribel Donovan APR ?Vihn Pyle CPT: 54787 ?? Units: ??1 ? 53709 ? 1 ? 43724 ? 1 ? 29434 ? 1 ? 73512 ? 2 ?FINAL DIAGNOSIS ? BREAST, RIGHT, 1 O'CLOCK, ULTRASOUND GUIDED NEEDLE CORE BIOPSY; ? -Adenocarcinoma, invasive ductal type ?Nuclear grade 2 ?Maximum linear extension: 11 mm ? -Estrogen receptor: Positive, see below ? -Progesterone receptor: Positive ? HER2 studies have been ordered. Results will follow in a separate report. ----- ------- ?COMMENT ? Immunohistochemical staining was performed on this case to further characterize the lesion. Positive controls stained appropriately. ?? Antibody Clone ?Result p63 (BC4A4, [employer]) ? Negative for myoepithelial cells: ?consistent with invasive cancer E-Cadherin (36B5, [employer]) ? Negative for myoepithelial cells; ?consistent with invasive cancer Heavy Chain Myosin (S131, [employer]) ? Positive; consistent with ductal origin ?? NOTE: ??One or more of the reagents used in immunohistochemical testing in this case may not have been cleared or approved by the U.S. Food and Drug Administration (FDA). ??The FDA has determined that such clearance or approval is not necessary. ??These tests are used for clinical purposes. ??They should not be regarded as investigational or for research. ??These reagents' performance characteristics have been determined by [facility] and/or by the referring laboratory. ??The positive and negative controls worked appropriately. If immunoperoxidase staining has been performed on alcohol fixed cytology specimens, which has not been fully validated, the assays should be interpreted with caution and correlated with clinical data. ??This laboratory ----- ------- Patient: JAMES FOOTE ?#[id number] ? (Continued) ----- ------- Specimen: [id number] ? Received: 04/01/18 ?(Continued) ?COMMENT ? (Continued) is certified under the Clinical Laboratory Improvement Amendments of 1988 (CLIA-88) as qualified to perform high complexity clinical laboratory testing. ? GROSS DESCRIPTION ? Received in formalin labeled with the patient's name are three needle cores of ? yellow-carrillo fibrofatty tissue ranging in length from 1.5 to 2.0 cm, e.s. 1. ??KF ?? PREOP DX/CLINICAL HISTORY ?Abnormal mammogram and ultrasound of right breast @ 1 o'clock. ----- ------- ??SPECIAL STUDY/IMMUNO RESULTS HORMONE RECEPTOR IMMUNOHISTOCHEMISTRY ?? Diagnosis: Invasive ductal carcinoma ?? Results Estrogen Receptor - Percentage of tumor cells exhibiting nuclear staining: >95% - Intensity of staining: Strong ?? Progesterone Receptor - Percentage of tumor cells exhibiting nuclear stainin-50% - Intensity of staining: Moderate ?? Interpretation Estrogen receptor: ??POSITIVE Progesterone receptor: POSITIVE ?? Internal and external controls: ??Adequate Standard assay conditions: ??Met ?? Assay Conditions Fixative: ??10% neutral buffered formalin Time removed from body: 3:32 PM Time placed in formalin: 3:32 PM Duration of fixation: 30 hours 28 minutes ?? Staining method used ----- ------- Patient: JAMES FOOTE ?#[id number] ? (Continued) ----- ------- Specimen: [id number] ? Received: 04/01/18 ?(Continued) ??SPECIAL STUDY/IMMUNO RESULTS ?(Continued) Primary antibody and vendor: Estrogen Receptor, Clone SP1, Jamn ??for [facility] and Progesterone Receptor, Clone [id number], [employer] for [facility] Antigen Retrieval Type: ??EDTA buffer, pH 8.0 Time in Antigen Retrieval: ??20 minutes Detection System Type: ??HRP Polymer Reference: ??IVD data sheet, Revision [id number], [employer] ?? Note: ??One or more of the reagents used in immunohistochemical testing in this case may not have been cleared or approved by the U. S. Food and Drug Administration (FDA). ??The FDA has determined that such clearance or approval is not necessary. ??These tests are used for clinical purposes. ??They should not be regarded as investigational or for research. This assay has not been validated on decalcified tissues. Results should be interpreted with caution given the likelihood of false negativity on decalcified specimens. ??These reagents' performance characteristics have been determined by [facility]. ??This laboratory is certified under the Clinical Laboratory Improvement Amendments of 1988 (CLIA-88) as qualified to perform high complexity clinical laboratory testing. ??Specimens subject to estrogen and progesterone receptor assay and Her2 should be fixed for at least 6 hours, up to a maximum of 72 hours. Signed ____(signature on file)____ Mireille Lamb M.D. 04/03/18 ? By the signature above, the attending physician certifies that he/she has personally conducted a gross and/or microscopic examination of the described specimens and rendered or confirmed the above diagnosis. Test Performed by [facility], [address] [place] [address] Dry Kiln Burner: Anne Purcell MD PHD ----- ------- Yajaira Kinsey MD PATHOLOGY MAUREEN FOSS Performing Organization Address City/State/[facility] Co de Phone Number [facility] documented in this encounter Visit Diagnoses Not on filedocumented in this encounter Care Teams Strand And Binder Controller Relationship Specialty Start Date End Date Maribel Donovan APRN [address] [place] [address] PCP - General 03/28/18 05/25/18 Vinh Pyle MD [address] [place] [address] PCP - General 05/26/18 documented as of this encounter
--- OUTSIDE RECORDS SUMMARY | 2024-06-18 16:35 | XMS_ITS | Encounter Summary ---
Author Organization [facility] Address [address] [place] [address] Care Team Providers Care American History Teacher Name Role Phone Maribel Donovan GONSALO Primary Care Provider [phone] Reason for Referral * Consult (Routine) - Specialty Report Received Specialty Diagnoses / Procedures Referred By Alannah ford Referred To Contact Diagnoses Malignant neoplasm of central portion of right breast in female, estrogen receptor positive (HCC-CMS) Yajaira Kinsey MD [address] [place] [phone] Referral ID Status Reason Start Date Expiration Date Visits Requested Visits Authorized [id number] Specialty Report Received Specialty Services Required 05/02/2018 1 1 Question Answer Reason for Request: new right breast cancer T2N0M0 * Consult (Routine) - Specialty Report Received Specialty Diagnoses / Procedures Referred By Alannah ford Referred To Contact Diagnoses Malignant neoplasm of central portion of right breast in female, estrogen receptor positive (HCC-CMS) Yajaira Kinsey MD [address] [place] [phone] Referral ID Status Reason Start Date Expiration Date Visits Requested Visits Authorized [id number] Specialty Report Received Specialty Services Required 05/02/2018 1 1 Question Answer Reason for Request: Stage 2 right breast cancer Reason for Visit * Reason Comments Post-OP Follow Up Encounter Details Date Type Department Care Team (Late st Contact Info) Description 05/02/2018 13:45 EDT Office Visit [facility] General Surgery - [place] [address] [facility] [address] [place] [address] Yajaira Kinsey MD [address] [facility] [address] [place] [address] Malignant neoplasm of central portion of [...] Sign Reading Time Taken Comments Blood Pressure 161/80 05/02/2018 1337 EDT Pulse 74 05/02/2018 1337 EDT Temperature - - Respiratory Rate - - Oxygen Saturation - - Inhaled Oxygen Concentration - - Weight - - Height - - Body Mass Index - - documented in this encounter Progress Notes * Yajaira Kinsey MD - 05/02/2018 1345 EDT Subjective: Deanna Isabel presents to the clinic 1 and half weeks following right breast lumpectomy and SLNbiopsy. She ahs no concerns but does have mild axillary selling. Objective: BP (!) 161/80 Pulse 74 General: alert and no distress Incision: healing well, no erythema, well approximated, mild swelling of the right axilla Assessment: Doing well postoperatively. Lumpectomy 04/23/2018 T2N0M0 2 SLN ER+ [place]+ Her-2 neg All margins clear closest 2mm Plan: PLAN: 1. I reviewed with the patient the postoperative findings as well as her pathology report. Specifically, we discussed that she is a stage II breast cancer. 2. Generally speaking due to the size of her tumor, she would be offered chemotherapy. Therefore, Iwould like her to meet with a medical oncologist. However, she may be a candidate for discussion ofOncotype testing. If she were to score low, she may just elect not to undergo chemotherapy. However, this is an important discussion to have with the oncologist as well as discussion of what type of hormonal therapy may be available to her as part of her treatment. 3. In addition, I will refer her to radiation therapy, so they can set the appropriate planning as well. 4. Her case will be discussed at tumor board, which is scheduled for next week. 5. Lastly, I would like to see the patient again in 2 to 3 weeks to assure she is healing up well and to finalize next steps of her treatment plan. documented in this encounter Plan of Treatment Scheduled Referrals Name Type Priority Associated Diagnoses Orde r Schedule AMB CONS/FOLLOW UP ONCOLOGY Outpatient Referral Routine Malignant neoplasm of central portion of right breast in female, estrogen receptor positive (HCC-CMS) Ordered: 05/02/2018 AMB CONS/FOLLOW UP RADIATION ONCOLOGY Outpatient Referral Routine Malignant neoplasm of central portion of right breast in female, estrogen receptor positive (HCC-CMS) Ordered: 05/02/2018 documented as of this encounter Visit Diagnoses Diagnosis Malignant neoplasm of central portion of right breast in female, estrogen receptor positive (HCC-CMS)- Primary documented in this encounter Care Teams American History Teacher Relationship Specialty Start Date End Date Maribel Donovan APRN [address] [place] [phone] PCP - General 03/28/18 05/25/18 documented as of this encounter
--- OUTSIDE RECORDS SUMMARY | 2024-06-18 16:35 | XMS_ITS | Encounter Summary ---
Author Organization [facility] Address [address] [place] [address] Care Team Providers Care Material Clerk Name Role Phone Maribel Donovan GONSALO Primary Care Provider [phone] Reason for Visit * Reason Onset Date Comments Appointment Related 05/07/2018 Encounter Details Date Type Department Care Team (Late st Contact Info) Description 05/07/2018 Telephone [facility] General Surgery - [place] [address] [address] Yajaira Kinsey MD 130 [facility] [address] [phone] Appointment Related Social History Tobacco Use Types Packs/Day Years [...] encounter Miscellaneous Notes * Telephone Encounter - Nora Levin - 05/14/2018 0849 EDT Pt confirmed * Telephone Encounter - Lila Eastman - 05/07/2018 1334 EDT LMTCB to inform pt of upcoming scheduled oncology appt with Dr Eugene on 05/21/18 at 3:00pm and an appt with radiation oncology at the [facility] on 05/26/18 at 1:30pm. The pt had a f/u appt with Dr Kinsey on 05/22/18 that has been rescheduled to 05/26/18 at 1:00pm to condense the number of visits the pt will make to [facility]. Please transfer the pt to [place] to discuss and confirm. documented in this encounter Plan of Treatment Not on file documented as of this encounter Visit Diagnoses Not on filedocumented in this encounter Care Teams Material Clerk Relationship Specialty Start Date End Date Maribel Donovan APRN [address] [place] [phone] PCP - General 03/28/18 05/25/18 documented as of this encounter
--- OUTSIDE RECORDS SUMMARY | 2024-06-18 16:35 | XMS_ITS | Encounter Summary ---
Author Organization [facility] Address [address] [place] [address] Care Team Providers Care Public Health Clinical Nurse Specialist Name Role Phone Chapo Pyle MD Primary Care Provide r Reason for Visit * Reason Onset Date Comments Results 05/29/2018 Encounter Details Date Type Department Care Team (Late st Contact Info) Description 05/29/2018 Telephone [facility] General Surgery - [place] [address] [address] Yajaira Kinsey MD [address] [phone] Results Social History Tobacco Use Types Packs/Day Years [...] encounter Miscellaneous Notes * Telephone Encounter - Yajaira Kinsey MD - 05/29/2018 1250 EDT Skin lesion actinic keratosis. Discussed significance. No issues. documented in this encounter Plan of Treatment Not on file documented as of this encounter Visit Diagnoses Not on filedocumented in this encounter Care Teams Public Health Clinical Nurse Specialist Relationship Specialty Start Date End Date Chapo Pyle MD [address] [facility] [address] [place] [address] PCP - General 05/26/18 documented as of this encounter
--- OUTSIDE RECORDS SUMMARY | 2024-06-18 16:35 | XMS_ITS | Encounter Summary ---
Author Organization [facility] Address [address] [place] [address] Care Team Providers Care Special Order Jeweler Name Role Phone Maribel Donovan APRN Primary Care Provider Encounter Details Date Type Department Care Team (Late st Contact Info) Description 04/08/2018 Results Only Imaging [facility] RADIOLOGY [address] [place] [address] Beth Herring MD [address] [facility] [address] [place] [address] Social History Tobacco Use Types [...] as of this encounter Plan of Treatment Pending Results Name Type Priority Associated Diagnoses Date /Time OUTSIDE IMAGES - US BREAST Imaging 03/27/2018 6:28 EDT OUTSIDE IMAGES - MAMMO BREAST Imaging 03/27/2018 6:28 EDT documented as of this encounter Visit Diagnoses Not on filedocumented in this encounter Care Teams Special Order Jeweler Relationship Specialty Start Date End Date Maribel Donovan APRN [address] [place] [phone] PCP - General 03/28/18 05/25/18 documented as of this encounter
--- OUTSIDE RECORDS SUMMARY | 2024-06-18 16:35 | XMS_ITS | Encounter Summary ---
Author Organization [facility] Address [address] [place] [address] Care Team Providers Care House Shorer Name Role Phone Maribel Donovan GONSALO Primary Care Provider [phone] Reason for Referral * Radiology Services (Routine/Next Available) - Specialty Report Received Specialty Diagnoses / Procedures Referred By Alannah t Referred To Contact Diagnoses Malignant neoplasm of central portion of right breast in female, estrogen receptor positive (HCC-CMS) Procedures NM INJECTION ONLY SENTINAL NODE BREAST Melinda Kinsey MD [address] [place] [phone] Referral ID Status Reason Start Date Expiration Date V isits Requested Visits Authorized [id number] Specialty Report Received 04/11/2018 1 1 Reason for Visit * Reason Comments Follow-up breast bx Encounter Details Date Type Department Care Team (Late st Contact Info) Description 04/10/2018 14:30 EDT Office Visit [facility] General Surgery [address] [address] Melinda Kinsey MD [address] [place] [phone] Malignant neoplasm of central portion of right breast in male, estrogen receptor positive (HCC-CMS) (Primary Dx); Malignant neoplasm of central portion of right breast in female, estrogen receptor positive (HCC-CMS) Social History Tobacco Use Types Packs/Day Years [...] Sign Reading Time Taken Comments Blood Pressure 170/103 04/10/2018 1407 EDT Pulse 68 04/10/2018 1407 EDT Temperature - - Respiratory Rate - - Oxygen Saturation - - Inhaled Oxygen Concentration - - Weight - - Height - - Body Mass Index - - documented in this encounter Progress Notes * Melinda Kinsey MD - 04/10/2018 1430 EDT [facility] PREOPERATIVE HISTORY AND PHYSICAL EXAMINATION Date of Service: 04/10/2018 PROBLEM: Chief Complaint Patient presents with ??? Follow-up breast bx SUBJECTIVE: The patient is a 72 y.o. White female presenting with a right breast cancer, ER/MD+, Her-2 negative. PROBLEM LIST: Patient Active Problem List Diagnosis ??? Breast mass, right ??? Malignant neoplasm of central portion of right breast in male, estrogen receptor positive (HCC-CMS) Past Medical History: Diagnosis Date ??? Arthritis ??? Cancer (HCC-CMS) ??? Hypertension ??? Irritable bowel syndrome Past Surgical History: Procedure Laterality Date ??? APPENDECTOMY ??? HYSTERECTOMY ??? JOINT REPLACEMENT ??? OTHER SURGICAL HISTORY left axilla mass removed at age 5 family history includes Arthritis in her mother; Breast Cancer in an other family member; Cancer inher maternal aunt, maternal grandfather, and maternal grandmother; Cancer (age of onset: 43) in hermaternal uncle; Crohn's Disease in her mother; Early (age of onset: 15) in her maternal aunt;Heart Disease in her father; High Blood Pressure in her mother. Current Outpatient Prescriptions: acetaminophen (TYLENOL) 500 mg tablet amLODIPine (NORVASC) 2.5 mg tablet Magnesium 250 mg tablet metoprolol (LOPRESSOR) 25 mg tablet omeprazole (PRILOSEC) 20 mg capsule ondansetron (ZOFRAN-ODT) 4 mg disintegrating tablet traMADol (ULTRAM) 50 mg tablet No current facility-administered medications for this visit. ALLERGIES: Percocet [oxycodone-acetaminophen] REVIEW OF SYSTEMS: Review of Systems 03/31/2018 Head & Neck Headaches;Tinnitus;Ear pain Eyes Blurred vision;Photophobia;Eye pain Cardiovascular Palpitations Psychiatric Insomnia Musculoskeletal Myalgia;Joint pain PHYSICAL EXAM: BP (!) 170/103 Pulse 68 she appears Alert, oriented, no acute distress. HEENT: Normocephalic Atraumatic EYES: EOMI, wears glasses NECK:no adenopathy EARS, NOSE, MOUTH AND THROAT: mucus membranes moist RESPIRATORY: clear to auscultation bilaterally BREAST: No nipple retraction or dimpling, No nipple discharge or bleeding, No axillary or supraclavicular adenopathy, Palpable mass at the 12 o'clock position CARDIAC: regular rate and rhythm ABDOMEN: Bowel sounds present and No tenderness or masses, organomegaly or peritoneal signs EXTREMITIES: Extremities warm to touch, pink, with no edema. NEUROLOGIC/PSYCHIATRIC: no focal deficits normal affect I reviewed the previous lab results with the patient and spouse. ASSESSMENT: Encounter Diagnosis Name Primary? Malignant neoplasm of central portion of right breast in female, estrogen receptor positive (HCC-CMS) Yes PLAN: 1. 1. First, I reviewed with Ms Isabel and her her biopsy results. We discussed the significance of her HER-2 negative status as well as the ER/MD positive status. 2. I think the next step in regards to the patient's treatment would be to consider surgery. Surgery often gains additional information of staging of the tumor and is helpful for further treatment planning. We discussed the 2 surgical options, which are lumpectomy often combined with radiation therapy afterwards, and mastectomy. We discussed the pros and cons of both of these procedures. However,more importantly, we discussed that both procedures have equal survival rates. However, there is a slightly higher recurrence risk in patients undergoing lumpectomy with radiation compared to mastectomy. But even with mastectomy, recurrence risk can be in the neighborhood of 5% to 7%. I also discussed that with surgery, she would undergo a sentinel lymph node biopsy, which is also extremely important in determining appropriate next steps in treatment. 3. After a discussion of these options, the patient elected to proceed with lumpectomy and sentinellymph node biopsy. We will schedule this in the next week and a half. I have reviewed with her the surgical procedure as well as the preparation for surgery and what to expect on the day of surgery. 4. We also discussed the risks of surgery such as bleeding, infection, need for reexcision as well as injury to another nerve. She understands those risks and consents to her surgery. documented in this encounter Miscellaneous Notes * Addendum Note - Melinda Kinsey MD - 04/11/2018 1023 EDTAddended by: MELINDA KINSEY on: 04/11/2018 10:23 Modules accepted: Orders documented in this encounter Plan of Treatment Scheduled Orders Name Type Priority Associated Diagnoses Orde r Schedule NM INJECTION ONLY SENTINAL NODE BREAST Imaging Routine Malignant neoplasm of central portion of right breast in female, estrogen receptor positive (HCC-CMS) Ordered: 04/11/2018 documented as of this encounter Visit Diagnoses Diagnosis Malignant neoplasm of central portion of right breast in male, estrogen receptor positive (HCC-CMS)- Primary Malignant neoplasm of central portion of right breast in female, estrogen receptor positive (HCC-CMS) documented in this encounter Care Teams House Shorer Relationship Specialty Start Date End Date Maribel Donovan APRN [address] [place] [phone] PCP - General 03/28/18 05/25/18 documented as of this encounter
--- OUTSIDE RECORDS SUMMARY | 2024-06-18 16:35 | XMS_ITS | Encounter Summary ---
Author Organization [facility] Address [address] [place] [address] Care Team Providers Care Marketing Traffic Manager Name Role Phone Chapo Pyle MD Primary Care Provide r Encounter Details Date Type Department Care Team (Late st Contact Info) Description 05/26/2018 Historical Results Only [facility] - Main [place] [address] [place] [address] Yajaira Kinsey MD [address] [place] [address] [address] [place] [address] Social History Tobacco Use Types [...] Date/Time Associated Diagnosis Comments SURGICAL PATHOLOGY Routine 05/26/2018 documented in this encounter Results * SURGICAL PATHOLOGY (05/26/2018) 05/26/2018 05/26/2018 13: 56 EDT Narrative [facility] - 05/27/2018 13:14 EDT ----- ------- Name: DEANNA FOOTE V ?: [birth year] ?Age/Sex: 73/F ?Unit#: [id number] ? Loc: LAB.OPX ? Status: REG REF ?? Reg Date: 05/26/18 ? Pt.Phone Number: ? ----- ------- Specimen: [id number] ? STATUS: SOUT ?Spec Date:05/26/18 ? Physician Copies: ?Yajaira Kinsey MD Tissues: A ?? Skin, other than cyst (MID UPPER CHEST/STERNUM) ?Maribel Donovan APR ?Juan Armenta MD ?Dheeraj Eugene MD CPT: 17342 ?? Units: ??1 ?FINAL DIAGNOSIS ? SKIN OF CHEST/STERNUM, MID UPPER, EXCISIONAL BIOPSY; ? - Actinic keratosis, no evidence of in situ or invasive carcinoma ? GROSS DESCRIPTION ? Received in formalin labeled with the patient's name is a unoriented 0.9 x 0.4 ? x 0.4 cm skin ellipse. ??The resection margins are inked black. ??The specimen is ? serially sectioned length cunha and totally submitted in cassette A1. ??MS ?? PREOP DX/CLINICAL HISTORY ?Mid upper chest/sternum changing skin lesion. ??Rule out basal ?cell cancer. Signed ____(signature on file)____ Brandon Merritt 05/27/18 ?? By the signature above, the attending physician certifies that he/she has personally conducted a gross and/or microscopic examination of the described specimens and rendered or confirmed the above diagnosis. Test Performed by [facility], [address] [place] [address] General Ledger Bookkeeper: Anne Purcell MD PHD ----- ------- Yajaira Kinsey MD PATHOLOGY [place] [facility] documented in this encounter Visit Diagnoses Not on filedocumented in this encounter Care Teams Marketing Traffic Manager Relationship Specialty Start Date End Date Chapo Pyle MD [address] [address] PCP - General 05/26/18 documented as of this encounter
--- OUTSIDE RECORDS SUMMARY | 2024-06-18 16:35 | XMS_ITS | Encounter Summary ---
Author Organization [facility] Address [address] [place] [address] Care Team Providers Care Acquisition Editor Name Role Phone Chapo Pyle MD Primary Care Provide r Encounter Details Date Type Department Care Team (Late st Contact Info) Description 08/07/2018 Historical Results Only [facility] - Main [address] [phone] [place] [address] [facility] [address] [place] [address] (Fax) Social History Tobacco Use Types Packs/Day [...] Procedure Name Priority Date/Time Associated Diagnosis Comments CREATININE Routine 08/07/2018 14:49 EST documented in this encounter Results * CREATININE (08/07/2018 14:49 EST) CREATININE 0.81 0.52 - 1.04 mg/dL 08/07/2018 16:47 EST [facility] eGFR >60 08/07/2018 16:47 EST [facility] Comment: Chronic renal impairment is defined as GFR <60 Multiply result by 1.210 for patients. eGFR calculated using the IDMS-traceable MDRD Study Equation. ??(effective 07/05/2014) 08/07/2018 14:4 9 EST 08/07/2018 15:18 EST Dheeraj Eugene MD CHEMISTRY & BLOOD GA S ORDERABLES [facility] documented in this encounter Visit Diagnoses Not on filedocumented in this encounter Care Teams Acquisition Editor Relationship Specialty Start Date End Date Chapo Pyle MD [address] [place] [address] [place] [address] PCP - General 05/26/18 documented as of this encounter
--- OUTSIDE RECORDS SUMMARY | 2024-06-18 16:35 | XMS_ITS | Encounter Summary ---
Author Organization [facility] Address [address] [place] [address] Care Team Providers Care Packaging Assembler Name Role Phone Maribel Donovan APRN Primary Care Provider Reason for Visit * Reason Onset Date Comments Results 04/28/2018 Encounter Details Date Type Department Care Team (Late st Contact Info) Description 04/28/2018 Telephone [facility] General Surgery - [place] [address] [address] Yajaira Kinsey MD 130 [facility] [address] [phone] Results Social History Tobacco Use [...] Telephone Encounter - Yajaira Kinsey MD - 04/28/2018 1301 EDT Reviewed path results. T2N0M0 Lymph nodes are negative. Briefly we discussed next steps of treatment, possible chemo pending an oncotype score or not. documented in this encounter Plan of Treatment Not on file documented as of this encounter Visit Diagnoses Not on filedocumented in this encounter Care Teams Packaging Assembler Relationship Specialty Start Date End Date Maribel Donovan APRN [address] [place] [address] PCP - General 03/28/18 05/25/18 documented as of this encounter
--- OUTSIDE RECORDS SUMMARY | 2024-06-18 16:35 | XMS_ITS | Encounter Summary ---
Author Organization [facility] Address [address] [place] [address] Care Team Providers Care Apprentice Photographer Name Role Phone Maribel Donovan GONSALO Primary Care Provider [phone] Encounter Details Date Type Department Care Team (Late st Contact Info) Description 03/31/2018 Results Only [facility] [phone] Mireille Lamb MD [address] [place] [address] Social History Tobacco Use Types Packs/Day Years [...] Date/Time Associated Diagnosis Comments SURGICAL PATHOLOGY Routine 03/31/2018 0:00 EDT documented in this encounter Results * SURGICAL PATHOLOGY (03/31/2018 0:00 EDT) Pathology Report: SURGICAL PATHOLOGY REPORT Reports generated via electronic interface contain original data; however they are lacking the format of the original report. Caution should be taken when reading/interpreting unformatted reports. Name: ? DEANNA FOOTE ? Accession #: ? [id number] ? : ? 1945 (Age: 72) ??F ?Collect Date: ? 03/31/2018 ? Location: ? [facility] ? Receive Date: ? 04/04/2018 ? Provider: MIREILLE LAMB MD Copy to: MELINDA FU MD ? Clinical History: ? Her 2 IMMUNOPEROXIDASE REPORT ? Date Ordered: ? 04/04/2018 ? Status: ?? Signed Out ?Date Complete: ? 04/04/2018 ? By: ??Katt Duenas ? Date Reported: ? 04/07/2018 ? Interpretation ASSAY RESULTS Her2 SCORE: ?1+ TUMOR LOCATION: ??Right breast, 1 o'clock ? COLD ISCHEMIC TIME AND TOTAL FORMALIN FIXATIVE TIME APPROPRIATE: ??Yes CELLS WITH COMPLETE MEMBRANE STAINING: ??None MEMBRANE STAINING INTENSITY: ??N/A PARTIAL MEMBRANE STAINING: ??Present in 20% of cells CYTOPLASMIC STAINING: ??Absent STAINING PATTERN: ??Homogeneous STAINING IN BENIGN EPITHELIUM: ??N/A THE HER2 ASSAY PERFORMED IS INTERPRETED NEGATIVE. Description Tissue submitted: Paraffin embedded tissue block labelled [id number] from [facility] Clinical History: ??Adenocarcinoma, invasive; right breast ? Fixative: ??Formalin ??(This immunohistochemical assay is intended for paraffin-embedded tissue fixed in 10% neutral buffered formalin for 6-72 hours; 18-24 hours with maximum tissue thickness of 3-4 millimeters is recommended for best assay performance. ??Her2 should not be performed on alcohol fixed tissues.) The assay was performed under appropriate conditions according to the publishing director's instructions with appropriate assay and tissue controls using an Anti-Her2 (4B5) Rabbit Monoclonal Antibody (Zachary). Her2 IHC Scoring Guidelines (invasive tumor component only) 0 ? negative ?No staining or membrane staining in less than 10% of cells 1+ ? negative ?Faint partial membrane staining in more than 10% of cells 2+ ? weakly positive ?Moderate complete membrane staining in more than 10% of cells 3+ ? positive ? Strong complete membrane staining in more than 10% of cells Reference: ??ASCO-CAP Recommendations for Her2 Testing. J Clin Oncol 2013; epub (www.jco.org Jun 08, 2013) ? NOTE: ??One or more of the reagents [...] performance characteristics have been determined by [facility] and/or by the referring laboratory. ??The positive and negative controls worked appropriately. If immunoperoxidase staining has been performed on alcohol fixed cytology specimens, which has not been fully validated, the assays should be interpreted with caution and correlated with clinical data. ??This laboratory is certified under the Clinical Laboratory Improvement Amendments of 1988 (CLIA-88) as qualified to perform high complexity clinical laboratory testing. Document reviewed and electronically signed by: ? MARIA G MILLER MD ? Report date: 04/07/2018 By the signature above, the attending physician certifies that he/she has personally conducted a gross and/or microscopic examination of the described specimens and rendered or confirmed the above diagnosis. End of Report [facility] 03/31/2018 04/04/2018 16: 33 EDT Mireille C Sharp MD PATHOLOGY ORDERABLES [facility] [address] [place] [address] documented in this encounter Visit Diagnoses Not on filedocumented in this encounter Care Teams Apprentice Photographer Relationship Specialty Start Date End Date Maribel Donovan APRN [address] [place] [address] PCP - General 03/28/18 05/25/18 documented as of this encounter
--- OUTSIDE RECORDS SUMMARY | 2024-06-18 16:35 | XMS_ITS | Encounter Summary ---
Author Organization [facility] Address [address] [place] [address] Care Team Providers Care Parking Manager Name Role Phone Chapo Pyle MD Primary Care Provide r Encounter Details Date Type Department Care Team (Latest Contact Info) Description 07/14/2018 15:17 EST - 07/14/2018 23:59 EST Hospital Encounter [facility] [address] [place] [address] Unknown, Provider, Discharge Disposition: Home or Self [...] 6 hours as needed for Pain. 09/05/2021 metoprolol (LOPRESSOR) 25 mg tablet Take 12.5 mg by mouth 2 times daily. 08/06/2019 documented as of this encounter Discharge Disposition Disposition Code Departure Means Destination Home or Self Penitentiary documented in this encounter Plan of Treatment Not on file documented as of this encounter Visit Diagnoses Not on filedocumented in this encounter Care Teams Parking Manager Relationship Specialty Start Date End Date Chapo Pyle MD [address] [place] [address] PCP - General 05/26/18 documented as of this encounter
--- OUTSIDE RECORDS SUMMARY | 2024-06-18 16:35 | XMS_ITS | Encounter Summary ---
Author Organization [facility] Address [address] [place] [address] Care Team Providers Care Security Inspector Name Role Phone Maribel Donovan APRN Primary Care Provider [phone] Reason for Visit * Reason Onset Date Comments Follow-up 04/24/2018 Encounter Details Date Type Department Care Team (Late st Contact Info) Description 04/24/2018 Telephone [facility] General Surgery - [place] [address] [address] Yajaira Kinsey MD [address] [phone] Follow-up Social History Tobacco Use Types Packs/Day Years [...] Telephone Encounter - Yajaira Kinsey MD - 04/24/2018 0943 EDT Pt feeling a lot better in regard to pain. No issues. documented in this encounter Plan of Treatment Not on file documented as of this encounter Visit Diagnoses Not on filedocumented in this encounter Care Teams Security Inspector Relationship Specialty Start Date End Date Maribel Donovan APRN [address] [place] [address] PCP - General 03/28/18 05/25/18 documented as of this encounter
--- OUTSIDE RECORDS SUMMARY | 2024-06-18 16:35 | XMS_ITS | Encounter Summary ---
Author Organization [facility] Address [address] [place] [address] Care Team Providers Care Automotive Maintenance Technician Name Role Phone Maribel Donovan APRN Primary Care Provider Reason for Visit * Reason Onset Date Comments Biopsy Results 04/04/2018 Encounter Details Date Type Department Care Team (Late st Contact Info) Description 04/04/2018 Telephone [facility] General Surgery - [place] [address] [address] Yajaira Kinsey MD 130 [facility] [address] [address] Biopsy Results Social History Tobacco Use Types Packs/Day [...] Telephone Encounter - Yajaira Kinsey MD - 04/04/2018 0949 EDT Informed pt of diagnosis of breast cancer. Awaiting results of Her-2 testing and we will meet next week to discuss treatment steps. documented in this encounter Plan of Treatment Not on file documented as of this encounter Visit Diagnoses Not on filedocumented in this encounter Care Teams Automotive Maintenance Technician Relationship Specialty Start Date End Date Maribel Donovan APRN [address] [place] [address] PCP - General 03/28/18 05/25/18 documented as of this encounter
--- OUTSIDE RECORDS SUMMARY | 2024-06-18 16:35 | XMS_ITS | Encounter Summary ---
Author Organization [facility] Address [address] [place] [address] Care Team Providers Care Radiology Technician Name Role Phone Maribel Donovan APRN Primary Care Provider [phone] Encounter Details Date Type Department Care Team (Late st Contact Info) Description 03/28/2018 Abstract [facility] General Surgery - [address] [place] [phone] Maribel Donovan APRN [address] [place] [address] Social History Tobacco Use Types Packs/Day Years Used Date Smoking Tobacco: Never Assessed Sex and Gender Information Value Date Recorded Sex Assigned at Not on file Gender Identity Female 07/25/2021 10:47 EST Sexual Orientation Not on file documented as of this encounter Plan of Treatment Not on file documented as of this encounter Visit Diagnoses Not on filedocumented in this encounter Historical Medications * This list may reflect changes made after this encounter. Medication Sig Dispensed Refills Start Date End Date amLODIPine (NORVASC) 2.5 mg tablet Take 2.5 mg by mouth daily. omeprazole (PRILOSEC) 20 mg capsule Take 20 mg by mouth daily. traMADol (ULTRAM) 50 mg tablet Take 50 mg by mouth every 6 hours as needed for Pain. ondansetron (ZOFRAN-ODT) 4 mg disintegrating tablet Take 4 mg by mouth every 8 hours as needed for Nausea. metoprolol (LOPRESSOR) 25 mg tablet Take 12.5 mg by mouth 2 times daily. 08/06/2019 added in this encounter Care Teams Radiology Technician Relationship Specialty Start Date End Date Maribel Donovan APRN [address] [place] [address] PCP - General 03/28/18 05/25/18 documented as of this encounter
--- OUTSIDE RECORDS SUMMARY | 2024-06-18 16:35 | XMS_ITS | Encounter Summary ---
Author Organization [facility] Address [address] [place] [address] Care Team Providers Care Principal Research Economist Name Role Phone Maribel Donovan GONSALO Primary Care Provider [phone] Encounter Details Date Type Department Care Team (Latest Contact Info) Description 04/23/2018 20:31 EDT - 04/23/2018 23:59 EDT Hospital Encounter [facility] [address] [place] [address] Unknown, Provider, Discharge Disposition: Home or Self [...] Code Departure Means Destination Home or Self Detention documented in this encounter Plan of Treatment Not on file documented as of this encounter Visit Diagnoses Not on filedocumented in this encounter Care Teams Principal Research Economist Relationship Specialty Start Date End Date Maribel Donovan APRN [address] [place] [address] PCP - General 03/28/18 05/25/18 documented as of this encounter
--- OUTSIDE RECORDS SUMMARY | 2024-06-18 16:35 | XMS_ITS | Encounter Summary ---
Author Organization [facility] Address [address] [place] [address] Care Team Providers Care Bag Adjuster Name Role Phone VenusMaribel catherine Juaquin BRUSH Primary Care Provider Chapo Pyle MD Primary Care Provide r Encounter Details Date Type Department Care Team (Late st Contact Info) Description 04/29/2018 Historical Results Only [facility] Radiology Results [address] [place], [place] [id number] Yajaira Kinsey MD [address] [place] [address] [address] [place] [address] Social History Tobacco Use Types [...] Procedure Name Priority Date/Time Associated Diagnosis Comments NM INJECTION ONLY SENTINEL NODE BREAST 04/29/2018 11:58 EDT documented in this encounter Results * NM INJECTION ONLY SENTINEL NODE BREAST (04/29/2018 11:58 EDT) Anatomical Region Laterality Modality Breast Other 04/29/2018 11:5 8 EDT Narrative 04/29/2018 11:58 EDT ? EXAM: NUCLEAR MEDICINE/LYMPHATIC RADIONUC EX. D/ (0724) ? CLINICAL INFORMATION: ? 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 INDICATION: C50.111 MALIGNANT NEOPLASM OF CENTRAL PORTION, OF (R) ? BREAST, ESTROGEN RECEPTOR POSITIVE RIGHT BREAST LUMPECTOMY SENTINEL ? LYMPH NODE BIOPSY ? TECHNIQUE: ??RIGHT BREAST LYMPHATIC RADIONUCLIDE INJECTION ? FINDINGS: ??Exam complete. No images taken. ? IMPRESSION: ??As above. ? REPORT SIGNED IN OTHER VENDOR SYSTEM 04/29/2018 ?Reported By: Praful Stanton MD ? CC: Yajaira Kinsey MD ? Transcribed Date/Time: 04/29/2018 (0328) ? House Visitor: ? Printed Date/Time: 02/21/2019 (8781) ? PAGE 1 ? Signed Report ? Procedure Note Praful Stanton MD - 07/09/2019 EXAM: NUCLEAR MEDICINE/LYMPHATIC RADIONUC EX. D/ (0724) CLINICAL INFORMATION: C50.111 MALIGNANT NEOPLASM OF CENTRAL PORTION OF (R) BREAST, ESTROGEN RECEPTOR POSITIVE INDICATION: C50.111 MALIGNANT NEOPLASM OF CENTRAL PORTION, OF (R) BREAST, ESTROGEN RECEPTOR POSITIVE RIGHT BREAST LUMPECTOMY SENTINEL LYMPH NODE BIOPSY TECHNIQUE: RIGHT BREAST LYMPHATIC RADIONUCLIDE INJECTION FINDINGS: Exam complete. No images taken. IMPRESSION: As above. REPORT SIGNED IN OTHER VENDOR SYSTEM 04/29/2018 Reported By: Praful Stanton MD CC: Yajaira Kinsey MD Transcribed Date/Time: 04/29/2018 (3579) House Visitor: Printed Date/Time: 02/21/2019 (4584) PAGE 1 Signed Report Yajaira Kinsey MD IMG NM ORDERAB LES documented in this encounter Visit Diagnoses Not on filedocumented in this encounter Care Teams Bag Adjuster Relationship Specialty Start Date End Date Maribel Donovan APRN [address] [place] [id number] PCP - General 03/28/18 05/25/18 Chapo Pyle MD [address] [place], [place] [id number] PCP - General 05/26/18 documented as of this encounter
--- OUTSIDE RECORDS SUMMARY | 2024-06-18 16:35 | XMS_ITS | Encounter Summary ---
Author Organization [facility] Address [address] [place] [address] Care Team Providers Care Air Deodorizer Servicer Name Role Phone Chapo Pyle MD Primary Care Provide r Encounter Details Date Type Department Care Team (Late st Contact Info) Description 07/14/2018 Historical Results Only [facility] Radiology Results [address] [place], [place] [id number] [place] [address] [facility] [address] [place] [address] (Fax) Social History Tobacco Use Types Packs/Day [...] Procedure Name Priority Date/Time Associated Diagnosis Comments DXA BONE DENSITY 07/14/2018 16:0 6 EST documented in this encounter Results * XR DEXA BONE DENSITY (07/14/2018 16:06 EST) Anatomical Region Laterality Modality Wrist, Hip, L-spine Other 07/14/2018 16:0 6 EST Narrative 07/15/2018 16:23 EST ? EXAM: RADIOLOGY/DXA SCAN/BONE DENSITY ? EX. D/ (1606) ? CLINICAL INFORMATION: ? C50.211 MALIGNANT NEOPLASM OF UPPER-INNER ? QUADRANT OF RIGHT FEMALE BREAST ? Z17.0 ESTROGEN RECEPTOR POSITIVE STATUS ? (ER+) ? Indication: postmenopausal; screening for osteoporosis; cancer; ? hysterectomy; ? Accession number: [id number] ? Clinical Information Provided by Patient: ? Has the following medical conditions: Cancer, Hysterectomy ? Patient maximum height was 61 ? No regular weight bearing exercise ? Drinks caffeinated beverages ? Onset of menses at age 13 ? Number of children 3 ? Bone Density: Exam date 07/14/2018 ? Region ?BMD ? . ? (g/cm2) ?? T-score ?? Z-score ?? Classification ? AP Spine(L1-L4) ?0.811 ? -2.1 ? 0.1 ?Osteopenia ? Femoral Neck(Left) ? 0.598 ? -2.3 ?-0.4 ?Osteopenia ? Total Hip(Left) ?0.703 ? -2.0 ?-0.4 ?Osteopenia ? World Health Organization criteria for BMD impression classify ? patients as Normal (T-score at or above -1.0), Osteopenia (T-score ? between -1.0 and -2.5), or Osteoporosis (T-score at or below -2.5). ? 10-year Fracture Risk : ? Major Osteoporotic Fracture 14% ? Hip Fracture 3.3% ? Reported Risk Factors: ? [place] (), Neck BMD=0.598, BMI=24.9 ? FRAX ??Version 3.08. Fracture probability calculated for an untreated ? patient. Fracture probability may be lower if the patient has received ? treatment. ? Impression: The patient has low bone mass, based on the Left Femoral ? Neck T-score. The patient has an estimated ten-year risk of hip ? fracture of 3.3% and an estimated ten-year risk of major fracture of ? 14%, based on the WHO FRAX algorithm. ? Discussion: BONE DENSITY IS LOW AT ONE OR MORE SKELETAL SITES. THE ? PATIENT'S BMD AND CLINICAL RISK FACTORS CONTRIBUTE TO THIS PATIENT'S ? INCREASED RISK OF FRACTURE. ? This patient's lowest T-score is low at one or more skeletal sites. ? It meets the World Health Organization's (WHO) criteria for low bone ? mass (T-score between -1.0 and -2.5). ? The patient's 10-year risk of hip fracture as calculated by FRAX ? exceeds the threshold where pharmacological therapy is recommended by ? the National Osteoporosis Foundation (NOF). ??However, all treatment ? PAGE 1 ? Signed Report ? (CONTINUED) ? decisions require clinical judgment and consideration of ? individual patient factors, including patient preferences, ? comorbidities, previous drug use, risk factors not captured in the ? FRAX model (e.g., frailty, falls, vitamin D deficiency, increased bone ? turnover, interval significant decline in bone density) and possible ? under or overestimation of fracture risk by FRAX. The patient should ? follow a healthful lifestyle (good nutrition with adequate calcium and ? vitamin D, and appropriate weight-bearing exercise). ? Follow-Up: Consider a repeat BMD and Vertebral Fracture Assessment ? (VFA) exam in 2 years or sooner if medically necessary, to reassess ? this patient's status. ? Reported by:JYOTI/austin on 07/14/2018 2:11:00 PM. ?Reported By: Mervin Crowell MD ? CC: ? Transcribed Date/Time: 07/15/2018 (1623) ? Loan Reviewer: AMARI ? Printed Date/Time: 02/22/2019 (0876) ? PAGE 2 ? Signed Report ? Procedure Note Mervin Crowell MD - 07/09/2019 EXAM: RADIOLOGY/DXA SCAN/BONE DENSITY EX. D/ (1606) CLINICAL INFORMATION: C50.211 MALIGNANT NEOPLASM OF UPPER-INNER QUADRANT OF RIGHT FEMALE BREAST Z17.0 ESTROGEN RECEPTOR POSITIVE STATUS (ER+) Indication: postmenopausal; screening for osteoporosis; cancer; hysterectomy; Accession number: [id number] Clinical Information Provided by Patient: Has the following medical conditions: Cancer, Hysterectomy Patient maximum height was 61 No regular weight bearing exercise Drinks caffeinated beverages Onset of menses at age 13 Number of children 3 Bone Density: Exam date 07/14/2018 Region BMD . (g/cm2) T-score Z-scoreClassification AP Spine(L1-L4) 0.811 -2.1 0.1 Osteopenia Femoral Neck(Left) 0.598 -2.3 -0.4 Osteopenia Total Hip(Left) 0.703 -2.0 -0.4 Osteopenia World Health Organization criteria for BMD impression classify patients as Normal (T-score at or above -1.0), Osteopenia (T-score between -1.0 and -2.5), or Osteoporosis (T-score at or below -2.5). 10-year Fracture Risk : Major Osteoporotic Fracture 14% Hip Fracture 3.3% Reported Risk Factors: [place] (), Neck BMD=0.598, BMI=24.9 FRAX Version 3.08. Fracture probability calculated for anuntreated patient. Fracture probability may be lower if the patient hasreceived treatment. Impression: The patient has low bone mass, based on the LeftFemoral Neck T-score. The patient has an estimated ten-year risk of hip fracture of 3.3% and an estimated ten-year risk of major fractureof 14%, based on the WHO FRAX algorithm. Discussion: BONE DENSITY IS LOW AT ONE OR MORE SKELETAL SITES. THE PATIENT'S BMD AND CLINICAL RISK FACTORS CONTRIBUTE TO THISPATIENT'S INCREASED RISK OF FRACTURE. This patient's lowest T-score is low at one or more skeletal sites. It meets the World Health Organization's (WHO) criteria for lowbone mass (T-score between -1.0 and -2.5). The patient's 10-year risk of hip fracture as calculated by FRAX exceeds the threshold where pharmacological therapy is recommendedby the National Osteoporosis Foundation (NOF). However, all treatment PAGE 1 Signed Report (CONTINUED) decisions require clinical judgment and consideration of individual patient factors, including patient preferences, comorbidities, previous drug use, risk factors not captured in the FRAX model (e.g., frailty, falls, vitamin D deficiency, increasedbone turnover, interval significant decline in bone density) andpossible under or overestimation of fracture risk by FRAX. The patientshould follow a healthful lifestyle (good nutrition with adequate calciumand vitamin D, and appropriate weight-bearing exercise). Follow-Up: Consider a repeat BMD and Vertebral Fracture Assessment (VFA) exam in 2 years or sooner if medically necessary, to reassess this patient's status. Reported by:JYOTI/austin on 07/14/2018 2:11:00 PM. Reported By: Mervin Crowell MD CC: Transcribed Date/Time: 07/15/2018 (0746) Loan Reviewer: AMARI Printed Date/Time: 02/22/2019 (8205) PAGE 2 Signed Report Dheeraj Eugene MD IMG DEXA ORDERABLES documented in this encounter Visit Diagnoses Not on filedocumented in this encounter Care Teams Air Deodorizer Servicer Relationship Specialty Start Date End Date Chapo Pyle MD [address] [address] PCP - General 05/26/18 documented as of this encounter
[2024-06-18 18:45] LABS: ALT 21 U/L (14-59); AST 27 U/L (15-37); Albumin 4.1 g/dL (3.4-5.0); Alkaline Phosphatase 99 U/L (46-116); Anion Gap 10.5 mmol/L (3-11); BUN 15 mg/dL (7-18); CO2 28.5 mmol/L (21.0-32.0); CREATININE 0.8 mg/dL (0.55-1.02); Calcium 9.2 mg/dL (8.5-10.1); Calculated LDL 141 mg/dL (<100); Chloride 106 mmol/L (98-107); Cholesterol 230 mg/dL (<200); Estimated GFR 75.84 (mL/min/1.73m2); Glucose 100 mg/dL (74-106); HDL Cholesterol 69 mg/dL (40-60); Potassium 4.6 mmol/L (3.5-5.1); Sodium 145 mmol/L (136-145); Total Protein 7.7 g/dL (6.4-8.2); Triglyceride 104 mg/dL (<150)
== END 2024-06-18 16:27 | disposition home or self-care (01) ==
LOC: NCHCN 16:26
PROVIDERS: PCP Family Medicine; Visit Provider Family Medicine
DX: I10 Essential (primary) hypertension (principal)
CPT/HCPCS: 80053; 80061

== ENCOUNTER 2025-06-03 09:08 | Outpatient (REF) | payer MEDICARE, SELFPAY ==
[2025-06-03 14:49] LABS: Abs Immature Grans 0.01 10^3/uL (0.0-0.06); HCT 39.9 % (36.0-46.0); HGB 13.1 g/dL (11.2-15.7); Immature Grans % 0.1 %; MCH 30.5 pg (27.0-33.0); MCHC 32.8 % (32.0-36.0); MCV 93 fL (80-95); MPV 10.0 fL (8.0-11.0); Platelet Count 309 10^3/uL (130-400); RBC 4.29 10^6/uL (3.93-5.22); RDW 13.1 % (11.7-14.6); RDW-SD 44.1 fL; WBC 7.34 10^3/uL (4.4-10.8)
[2025-06-03 14:54] LABS: ALT 18 U/L (14-59); AST 33 U/L (15-37); Albumin 4.0 g/dL (3.4-5.0); Alkaline Phosphatase 80 U/L (46-116); Anion Gap 8.6 mmol/L (3-11); BUN 12 mg/dL (7-18); Bilirubin, Total 0.3 mg/dL (0.2-1.0); CO2 28.4 mmol/L (21.0-32.0); Calcium 9.0 mg/dL (8.5-10.1); Chloride 106 mmol/L (98-107); Estimated GFR 75.37 (mL/min/1.73m2); Glucose 111 mg/dL (74-106); Potassium 4.3 mmol/L (3.5-5.1); Sodium 143 mmol/L (136-145); Total Protein 7.6 g/dL (6.4-8.2)
== END 2025-06-03 09:09 | disposition home or self-care (01) ==
LOC: NCHCN 09:08
PROVIDERS: PCP Family Medicine; Visit Provider Family Medicine
DX: R10.11 Right upper quadrant pain (principal); I10 Essential (primary) hypertension
CPT/HCPCS: 80053; 85025